=== PATIENT | female | born 1975 | race Caucasian/White ===

== ENCOUNTER → 2016-04-01 | Outpatient (CLI) | payer OTHER ==
[~2016-04-01] MED LIST: ALBU8.5H2 IH; ASPI-266 PO; ASPI-587 PO; AZIT500T PO; CEFD300C3 PO; CYAN100053 IJ; CYAN100T IM; CYCL10TA45 PO; CYCL10TA9 PO; FLUT16SP22; HYDR-2890 PO; HYDR-3816 PO; IBP200T; IBUP-1780 PO; JANUMET; MTF500T PO; MULT-608 PO; OXYC1CAP3 PO; PHENERGAN/CODEINE PO; PRD10T PO; PREN1TAB39 PO; SITA1TAB6
--- OUTSIDE RECORDS SUMMARY | 2016-04-01 07:53 | XMS REPORT | Continuity of Care Document ---
Author Author [facility] Organization [facility] Address Unknown Phone Unavailable Care Team Providers Care Choreography Director Name Role Phone Unverified, Unverified PCP Unavailable Source Comments Some departments are not documenting in the electronic medical record. If you do not see the information that you expected, contact Release of Information in the Health Information Management department at [phone] for further assistance in locating additional records.[facility] Active Allergies and Adverse Reactions Not on File Current Medications Not on file Active Problems Not on file Social History Tobacco Use Types Packs/Day Years Used Date Never Assessed Plan of Care Health Maintenance Due Date Last Done Comments Physical (Comprehensive) 08/23/1983 Exam Pertussis Vaccine 08/23/1987 Tetanus Vaccine 1993 Influenza Vaccine 11/23/2015 Results from Last 3 Months Not on file
--- NOTE | 2016-04-01 10:20 | Diagnostic Imaging Report ---
EXAMINATION: Left breast ultrasound. INDICATION: Left breast known nodule seen on recent screening mammogram. FINDINGS: In the left breast 2:00 o'clock zone 5 cm from the nipple there is a 1.3 x 0.5 x 1 cm oval-shaped lobulated hyperechoic mass with no internal vascularity. There is no shadowing. No clear through transmission however. No internal color Doppler is seen. The patient was notified of the recommendation personally by phone. IMPRESSION: 1.3 CM hypoechoic lesion that could be solid. Since this is a new lesion above a centimeter in size, an ultrasound-guided biopsy is recommended. BI-RADS 4A. ACR BI-RADS Category 4A: Low suspicion of malignancy. Report was faxed to office of Dr. Davis by karly at 10:22 am. Dictated by: Dictated on workstation # [id number]
== END ==
LOC: RAD 07:50
PROVIDERS: ATTEND Family Medicine
DX: N63 Unspecified lump in breast (principal)
CPT/HCPCS: 76642

== ENCOUNTER → 2016-04-08 | Outpatient (CLI) | payer OTHER ==
[~2016-04-08] VITALS: Ht 162.6 cm; Wt 95.7 kg
[~2016-04-08] MED LIST changes: +LIDOCAINE 1% INJ 20 ML (XYLOCAINE) VIAL INJ ONE; +LIDOCAINE 1% INJ 20 ML (XYLOCAINE) VIAL ONE
--- OUTSIDE RECORDS SUMMARY | 2016-04-08 09:11 | XMS REPORT | Continuity of Care Document ---
Author Author [facility] Organization [facility] Address Unknown Phone Unavailable Care Team Providers Care Gum Maker Name Role Phone Unverified, Unverified PCP Unavailable Source Comments Some departments are not documenting in the electronic medical record. If you do not see the information that you expected, contact Release of Information in the Health Information Management department at [phone] for further assistance in locating additional records.[facility] Active Allergies and Adverse Reactions Not on [...]
--- NOTE | 2016-04-08 10:43 | Diagnostic Imaging Report ---
EXAMINATION: Vacuum-assisted ultrasound-guided biopsy of breast mass left. A metallic clip placed to yomaira biopsy site. INDICATION: Left breast mass. CONSENT: Informed consent was obtained from the patient. The risks, benefits, potential complications and alternatives were reviewed and all questions answered to the patient's satisfaction. FINDINGS: Ultrasound images demonstrate left breast mass at the 2:00 zone, 5 cm from the nipple. PROCEDURE: After sterile preparation and draping, 1% lidocaine was utilized for local anesthesia. A vacuum-assisted biopsy device with 14-gauge needle was introduced under live ultrasound guidance into the lesion. Good needle position was documented with ultrasound images. A metallic clip was placed to yomaira the site of the biopsy. A subsequent mammogram is performed and confirms the proper positioning of the clip. Multiple samples were obtained and sent to pathology. The patient tolerated the procedure well with no immediate complications. IMPRESSION: Successful ultrasound-guided biopsy of 2:00 left breast mass. A metallic clip placed to yomaira biopsy site. Dictated by: Dictated on workstation # [id number]
--- NOTE | 2016-04-08 17:10 | Diagnostic Imaging Report ---
Exam: CC and lateral views of the left breast diagnostic mammogram INDICATION: Documentation of clip position and verification of matching ultrasound and mammographic abnormalities after ultrasound-guided biopsy. FINDINGS: Satisfactory clip position is seen along the medial aspect of the left breast mass confirming that the mammographic and ultrasound abnormalities are the same lesion. IMPRESSION: Satisfactory clip position. Pathology results are pending. Dictated by: Dictated on workstation # [id number]
== END ==
LOC: RAD 09:09
PROVIDERS: ATTEND Family Medicine
DX: D24.2 Benign neoplasm of left breast (principal)
CPT/HCPCS: 19083

== ENCOUNTER → 2016-06-06 | Outpatient (CLI) | payer OTHER ==
[~2016-06-06] MED LIST changes: -LIDOCAINE 1% INJ 20 ML (XYLOCAINE) VIAL INJ ONE; -LIDOCAINE 1% INJ 20 ML (XYLOCAINE) VIAL ONE
--- OUTSIDE RECORDS SUMMARY | 2016-06-06 09:27 | XMS REPORT | Continuity of Care Document ---
Author Author [facility] Organization [facility] Address Unknown Phone Unavailable Care Team Providers Care Field Hockey And Lacrosse Coach Name Role Phone Unverified, Unverified PCP Unavailable Source Comments Some departments are not documenting in the electronic medical record. If you do not see the information that you expected, contact Release of Information in the Health Information Management department at [phone] for further assistance in locating additional records.[facility] Active Allergies and Adverse Reactions Not [...]
== END ==
LOC: LAB 09:22
PROVIDERS: ATTEND Internal Medicine
DX: R73.03 Prediabetes (principal)
CPT/HCPCS: 36415; 83036

== ENCOUNTER → 2017-03-18 | Outpatient (CLI) | payer OTHER ==
--- NOTE | 2017-03-18 18:50 | Diagnostic Imaging Report ---
Bilateral screening mammogram 2D views with tomosynthesis The current study was also evaluated with a Computer Aided Detection (CAD) system. Indication: Screening. No current complaints stated on the questionnaire. COMPARISON: 04/08/2016. FINDINGS: The breasts are composed of heterogeneously dense parenchyma which may decrease mammographic sensitivity. Benign-appearing calcifications are seen. Previously seen circumscribed nodule in the outer aspect of the left breast is smaller in size compared to the prior study and is associated with circumscribed margins suggestive of benign etiology. A biopsy clip adjacent to its is seen. 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 Allowing for technique and positional differences, no suspicious change is seen. IMPRESSION: No significant change. ACR BI-RADS Category 2: Benign findings. Result letter will be mailed to the patient. Note: At least 10% of breast cancer is not imaged by mammography. Dictated by: Dictated on workstation # [id number]
== END ==
LOC: RAD 09:32
PROVIDERS: ATTEND Family Medicine
DX: Z12.31 Encounter for screening mammogram for malignant neoplasm of breast (principal)
CPT/HCPCS: 77067

== ENCOUNTER → 2017-06-25 | Outpatient (CLI) | payer OTHER ==
--- NOTE | 2017-06-25 12:43 | Diagnostic Imaging Report ---
EXAMINATION: Pelvic ultrasound. INDICATION: Right lower quadrant pain. FINDINGS: The previous pelvic ultrasound exam performed on 05/25/2014 suggested that the uterus had a slightly heterogeneous appearance and raised the question of adenomyosis. On this exam, the uterus is nongravid and not enlarged measuring 7.4 x 6.8 x 5.3 cm. The uterine myometrium seems fairly homogeneous. There is no clear evidence for adenomyosis. The endometrial lining is thickened measuring 10 mm (normal 5 mm or less). This finding is nonspecific. Correlation with the patient's menstrual cycle will be recommended. Neither ovary is identified; however, there is a 3.7 x 3.5 x 2.9 cm lobulated cystic mass in the left adnexa. I suspect that this is arising from the left ovary. This cystic mass has a generally benign appearance. There is no solid mass identified and there is no sign of any free fluid. IMPRESSION: 1. Neither ovary is identified, but the 3.7 x 2.5 x 2.9 cm lobulated cystic mass in the left adnexa is most likely arising from the left ovary. 2. There is no acute abnormality identified. 3. The uterine myometrium is fairly homogeneous. There is no evidence for adenomyosis. Dictated by: Dictated on workstation # [id number]
== END ==
LOC: RAD 10:39
PROVIDERS: ATTEND Internal Medicine
DX: N83.8 Other noninflammatory disorders of ovary, fallopian tube and broad ligament (principal)
CPT/HCPCS: 76830; 76856

== ENCOUNTER 2017-08-29 04:17 | Emergency (ER) | payer OTHER ==
[~2017-08-29] VITALS: Ht 162.6 cm; Wt 95.7 kg
[2017-08-29] MEDS ORDERED: LACTATED RINGERS 1,000 ML IV ONE ×2 (04:32→05:39)
[2017-08-29] MEDS ORDERED: KETOROLAC 30 MG/ML VIAL IVP STA (04:32)
[2017-08-29 04:41] LABS: BASOPHILS # (AUTO) 0.1 10^3/uL (0.0-0.1); BASOPHILS % (AUTO) 1 % (0-10); EOSINOPHILS # (AUTO) 0.4 10^3/uL (0.0-0.3); EOSINOPHILS % (AUTO) 3 % (0-10); HEMATOCRIT 38 % (35-52); HEMOGLOBIN 12.5 G/DL (11.5-16.0); LYMPHOCYTES # (AUTO) 3.1 X 10^3 (1.0-4.0); LYMPHOCYTES % (AUTO) 30 % (12-44); MEAN CORPUSCULAR HEMOGLOBIN 27 PG (25-34); MEAN CORPUSCULAR HGB CONC 33 G/DL (32-36); MEAN CORPUSCULAR VOLUME 81 FL (80-99); MEAN PLATELET VOLUME 10.3 FL (7.4-10.4); MONOCYTES # (AUTO) 0.7 X 10^3 (0.0-1.0); MONOCYTES % (AUTO) 7 % (0-12); NEUTROPHILS # (AUTO) 6.3 X 10^3 (1.8-7.8); NEUTROPHILS % (AUTO) 60 % (42-75); PLATELET COUNT 294 10^3/uL (130-400); RED BLOOD COUNT 4.62 10^6/uL (4.35-5.85); RED CELL DISTRIBUTION WIDTH 15.5 % (10.0-14.5); WHITE BLOOD COUNT 10.5 10^3/uL (4.3-11.0)
--- NOTE | 2017-08-29 04:42 | ED Abdominal Pain ---
General Chief Complaint: Abdominal/GI Problems Stated Complaint: POSS KIDNEY STONE Source of Information: Patient Exam Limitations: No Limitations History of Present Illness Date Seen by Provider: Aug 29, 2017 Time Seen by Provider: 04:30 Initial Comments PT ARRIVES VIA POV FROM HOME C/O SEVERE LEFT FLANK PAIN, WOKE HER UP 1 HOUR AGO C/O NAUSEA, NO VOMITING NO FEVER NO PROBLEMS URINATING, VOIDED AT ONSET OF PAIN, NO GROSS HEMATURIA. TAKES HYDROCODONE AND FLEXERIL DAILY FOR CHRONIC RIGHT ANKLE PAIN--LAST DOSE WAS AT 1800 LAST EVENING PT HAS HISTORY OF KIDNEY STONES, AND THIS IS THE SAME ONLY MUCH WORSE THAN NORMAL LAST STONE WAS APPROXIMATELY 2 MONTHS AGO HAS HAD URETERAL STENTS, BUT HAS NOT HAD TO HAVE ACTUAL SURGICAL REMOVAL OF STONES OR LITHOTRIPSY. LMP--2-3 WEEKS AGO, NORMAL. NO CONTROL-- HAS BEEN IN [place] PCP: DR. WELCH UROLOGIST: DR. YOUNG--IS OUT OF TOWN UNTIL 08/31/17 Allergies and Home Medications Allergies Coded Allergies: morphine (Unverified Allergy, Severe, VOMITING, 12/13/10) latex (Unverified Allergy, Mild, RASH, 12/13/10) ondansetron (Unverified Allergy, Mild, Rash at IV site, 02/25/06) iron (Verified Allergy, Unknown, 02/23/06) metoclopramide (Verified Allergy, Unknown, 02/23/06) Home Medications Albuterol 8.5 Gm Hfa.aer.ad, 2 PUFF IH Q4H PRN for SHORTNESS OF BREATH, ( Reported) Azithromycin 500 Mg Tablet, 500 MG PO DAILY FOR INFECTION Prescribed by: SARAI CASEY on 12/27/152138 Cefdinir 300 Mg Capsule, 300 MG PO BID Prescribed by: SARAI CASEY on 12/27/152138 Cyclobenzaprine Hcl 10 Mg Tablet, 10 MG PO Q12H PRN for MUSCLE SPASMS, (Reported ) Hydrocodone Bit/Acetaminophen 1 Tab Tablet, 2 TAB PO Q6H PRN for PAIN, (Reported ) Ibuprofen 800 Mg Tablet, 800 MG PO Q8H PRN for PAIN, (Reported) Ketorolac Tromethamine 10 Mg Tablet, 10 MG PO Q6H Prescribed by: SARAI CASEY on 08/29/17634 Nitrofurantoin Monohyd/M-Cryst 100 Mg Capsule, 100 MG PO BID Prescribed by: SARAI CASEY on 08/29/17634 Prednisone 10 Mg Tab, 40 MG PO DAILY Prescribed by: SARAI CASEY on 12/27/152139 Promethazine HCl 25 Mg Supp.rect, 25 MG RC Q4H Prescribed by: SARAI CASEY on 08/29/17634 Tamsulosin HCl 0.4 Mg Cap, 0.4 MG PO DAILY Prescribed by: SARAI CASEY on 08/29/17634 Tramadol HCl 50 Mg Tablet, 50 MG PO Q4H Prescribed by: SARAI CASEY on 08/29/17634 [Phenergan/Codeine] , 10 ML PO Q8H PRN for COUGH, (Reported) Patient Home Medication List Home Medication List Reviewed: Yes Review of Systems Constitutional: no symptoms reported Respiratory: No Symptoms Reported Cardiovascular: No Symptoms Reported Gastrointestinal: See HPI, Nausea; Denies Vomiting Genitourinary: See HPI, Flank Pain Musculoskeletal: see HPI, back pain Skin: no symptoms reported Psychiatric/Neurological: No Symptoms Reported Endocrine: No Symptoms Reported Hematologic/Lymphatic: No Symptoms Reported Past Optniex-Ttfgwi-Adkeor Hx Patient Social History Alcohol Use: Denies Use Recreational Drug Use: No Smoking Status: Never a Smoker Recent Foreign Travel: No Contact w/Someone Who Travel: No Recent Hopitalizations: No Immunizations Up To Date Date of Influenza Vaccine: Jan 02, 2012 Past Medical History Surgeries: Yes (LAP GABI; LAP APPY; LAP. OVARIAN CYST REMOVAL; URETERAL STENTS FOR STONES; EGD'S/COLONOSCOPIES--LAST ONE 11/2014; CARDIAC CATH 2014-- NO INTERVENTION/MILD DISEASE) Appendectomy, Gallbladder, Orthopedic, Renal Respiratory: Yes Asthma Cardiac: No (ABNORMAL STRESS TEST AND CARDIAC CATH 2014--NO INTERVENTION/MILD DISEASE) Neurological: No Reproductive Disorders: Yes Female Reproductive Disorders: Ovarian Cyst Sexually Transmitted Disease: No Genitourinary: Yes Kidney Stones Gastrointestinal: Yes (S/P GABI AND APPY) Esophagitis, Gall Bladder Disease Musculoskeletal: Yes (RIGHT ANKLE FX/ORIF; CHRONIC RIGHT ANKLE PAIN --ON DAILY HYDROCODONE AND FLEXERIL) Fractures Endocrine: Yes (HYPERGLYCEMIA IN PAST) Cancer: No Psychosocial: No Integumentary: No Blood Disorders: No Physical Exam Vital Signs Vital Signs - First Documented 6/8/18 04:20 Temp 96.7 Pulse 84 Resp 18 B/P (MAP) 154/95 (114) Pulse Ox 99 Capillary Refill : General Appearance: WD/WN, other (LOOKS UNCOMFORTABLE) Respiratory: normal breath sounds, no respiratory distress, no accessory muscle use Cardiovascular: regular rate, rhythm, no murmur Gastrointestinal: normal bowel sounds, soft, no organomegaly; No distended, No guarding, No rebound; tenderness (LEFT FLANK) Extremities: normal inspection, normal capillary refill Back: CVA tenderness (L) Neurologic/Psychiatric: grease monkey II-XII nml as tested, no motor/sensory deficits, alert, oriented x 3 Skin: normal color, warm/dry Progress/Results/Core Measures Results/Orders Lab Results Laboratory Tests Test 08/29/17 04:25 08/29/17 06:35 Range/Units White Blood Count 10.5 4.3-11.0 10^3/uL Red Blood Count 4.62 4.35-5.85 10^6/uL Hemoglobin 12.5 11.5-16.0 G/DL Hematocrit 38 35-52 % Mean Corpuscular Volume 81 80-99 FL Mean Corpuscular Hemoglobin 27 25-34 PG Mean Corpuscular Hemoglobin Concent 33 32-36 G/DL Red Cell Distribution Width 15.5 H 10.0-14.5 % Platelet Count 294 130-400 10^3/uL Mean Platelet Volume 10.3 7.4-10.4 FL Neutrophils (%) (Auto) 60 42-75 % Lymphocytes (%) (Auto) 30 12-44 % Monocytes (%) (Auto) 7 0-12 % Eosinophils (%) (Auto) 3 0-10 % Basophils (%) (Auto) 1 0-10 % Neutrophils # (Auto) 6.3 1.8-7.8 X 10^3 Lymphocytes # (Auto) 3.1 1.0-4.0 X 10^3 Monocytes # (Auto) 0.7 0.0-1.0 X 10^3 Eosinophils # (Auto) 0.4 H 0.0-0.3 10^3/uL Basophils # (Auto) 0.1 0.0-0.1 10^3/uL Sodium Level 139 135-145 MMOL/L Potassium Level 4.5 3.6-5.0 MMOL/L Chloride Level 106 98-107 MMOL/L Carbon Dioxide Level 20 L 21-32 MMOL/L Anion Gap 13 5-14 MMOL/L Blood Urea Nitrogen 15 7-18 MG/DL Creatinine 0.84 0.60-1.30 MG/DL Estimat Glomerular Filtration Rate > 60 BUN/Creatinine Ratio 18 Glucose Level 106 H 70-105 MG/DL Calcium Level 9.4 8.5-10.1 MG/DL Total Bilirubin 0.3 0.1-1.0 MG/DL Aspartate Amino Transf (AST/SGOT) 15 5-34 U/L Alanine Aminotransferase (ALT/SGPT) 20 0-55 U/L Alkaline Phosphatase 69 40-136 U/L Total Protein 7.4 6.4-8.2 GM/DL Albumin 4.2 3.2-4.5 GM/DL Amylase Level 43 25-125 U/L Lipase 21 8-78 U/L Serum Test, Qualitative NEGATIVE NEGATIVE Urine Color YELLOW Urine Clarity CLEAR Urine pH 6 5-9 Urine Specific [place] 1.015 L 1.016-1.022 Urine Protein 1+ H NEGATIVE Urine Glucose (UA) NEGATIVE NEGATIVE Urine Ketones NEGATIVE NEGATIVE Urine Nitrite NEGATIVE NEGATIVE Urine Bilirubin NEGATIVE NEGATIVE Urine Urobilinogen NORMAL NORMAL MG/DL Urine Leukocyte Esterase NEGATIVE NEGATIVE Urine RBC (Auto) 5+ H NEGATIVE Urine RBC 5-10 H /HPF Urine WBC 0-2 /HPF Urine Squamous Epithelial Cells 2-5 /HPF Urine Crystals NONE /LPF Urine Bacteria TRACE /HPF Urine Casts NONE /LPF Urine Mucus NEGATIVE /LPF Urine Culture Indicated NO My Orders Orders - SARAI CASEY DO Ct Abd/Pelvis Wo(Kidney Stone) (08/29/17 04:32) Amylase (08/29/17 04:32) Cbc With Automated Diff (08/29/17 04:32) Comprehensive Metabolic Panel (08/29/17 04:32) Lipase (08/29/17 04:32) Ua Culture If Indicated (08/29/17 04:32) Acute Abd Series (08/29/17 04:32) Saline Lock/Iv-Start (08/29/17 04:32) Ketorolac Injection (Toradol Injection) (08/29/17 04:32) Saline Lock/Iv-Start (08/29/17 04:32) Lactated Ringers (Lr 1000 Ml Iv Solution (08/29/17 04:32) Hcg,Qualitative Serum (08/29/17 04:32) Promethazine Injection (Phenergan Injec (08/29/17 04:45) Fentanyl Injection (Sublimaze Injection (08/29/17 05:39) Alfuzosin (Not Stocked) (Uroxatral (Not (08/29/17 05:45) Promethazine Injection (Phenergan Injec (08/29/17 05:45) Saline Lock/Iv-Start (08/29/17 05:39) Lactated Ringers (Lr 1000 Ml Iv Solution (08/29/17 05:39) Fentanyl Injection (Sublimaze Injection (08/29/17 05:53) Fentanyl Injection (Sublimaze Injection (08/29/17 06:27) Medications Given in ED Vital Signs/I&O 08/29/17 08/29/17 04:20 07:05 Temp 96.7 Pulse 84 87 Resp 18 B/P (MAP) 154/95 (114) 138/89 Pulse Ox 99 100 Progress Progress Note : Progress Note NO SIGNIFICANT RELIEF WITH TORADOL MODERATE RELIEF WITH FENTANYL PT WOULD LIKE TO GO HOME AND TRY ORAL PAIN MEDICATIONS, AND FOLLOW UP WITH DR. YOUNG ON FRIDAY PT ADVISED TO RETURN TO ER IF PAIN IS UNCONTROLLED WITH ORAL MEDICATIONS Diagnostic Imaging Comments ABD XRAYS--NO ACUTE PROCESS, PENDING RADIOLOGIST REVIEW CT ABDOMEN/PELVIS--5 MM PROXIMAL LEFT URETERAL STONE WITH MILD HYDRONEPHROSIS/ HYDROURETER. PER STAT RAD VIA FAX @ 0011 Departure Impression Primary Impression: Left ureteral calculus Disposition: HOME, SELF-CARE Condition: Improved Departure-Patient Inst. Referrals: LEANDRO WELCH MD (PCP/Family) Primary Care Physician Patient Instructions: Kidney Stones (DC) Add. Discharge Instructions: LOTS OF CLEAR LIQUIDS STRAIN ALL URINE--RETURN ANY STONES TO DR. YOUNG'S OFFICE TAKE YOUR HYDROCODONE 1-2 PILLS EVERY 4 HOURS NEEDED FOR PAIN YOU MAY TAKE YOUR FLEXERIL 3 TIMES A DAY NEEDED FOR PAIN AND SPASMS FOLLOW UP WITH DR YOUNG ON FRIDAY, RETURN TO ER IF PAIN WORSENS All discharge instructions reviewed with patient and/or family. Voiced understanding. Scripts Tramadol HCl (Ultram) 50 Mg Tablet 50 MG PO Q4H, #20 TAB Prov: SARAI CASEY DO 6/8/18 Promethazine HCl (Phenergan) 25 Mg Supp.rect 25 MG RC Q4H for Nausea/Vomiting, #10 SUPP.RECT Prov: SARAI CASEY DO 08/29/17 Nitrofurantoin Monohyd/M-Cryst (Macrobid 100 mg Capsule) 100 Mg Capsule 100 MG PO BID, #20 CAP Prov: SARAI CASEY DO 08/29/17 Ketorolac Tromethamine (Ketorolac Tromethamine) 10 Mg Tablet 10 MG PO Q6H for Pain, #15 TAB Prov: SARAI CASEY DO 08/29/17 Tamsulosin HCl (Flomax) 0.4 Mg Cap 0.4 MG PO DAILY, #10 CAP Prov: SARAI CASEY DO 08/29/17 SARAI CASEY DO Aug 29, 2017 04:42
[2017-08-29] MEDS ORDERED: PROMETHAZINE INJ 25 MG/ML (PHENERGAN) AMP IVP ONE ×2 (04:45→05:45)
[2017-08-29 04:57] LABS: ALANINE AMINOTRANSFERASE 20 U/L (0-55); ALBUMIN 4.2 GM/DL (3.2-4.5); ALKALINE PHOSPHATASE 69 U/L (40-136); AMYLASE 43 U/L (25-125); BILIRUBIN,TOTAL 0.3 MG/DL (0.1-1.0); BUN/CREATININE RATIO 18; CALCIUM 9.4 MG/DL (8.5-10.1); CARBON DIOXIDE 20 MMOL/L (21-32); CHLORIDE 106 MMOL/L (98-107); CREATININE SERUM 0.84 MG/DL (0.60-1.30); GFR ESTIMATED > 60; GLUCOSE 106 MG/DL (70-105); LIPASE 21 U/L (8-78); POTASSIUM 4.5 MMOL/L (3.6-5.0); SODIUM 139 MMOL/L (135-145); TOTAL PROTEIN 7.4 GM/DL (6.4-8.2)
[2017-08-29] MEDS ORDERED: fentaNYL INJECTION 100 MCG/2 ML AMP IVP STA ×3 (05:39→06:27)
[2017-08-29] MEDS ORDERED: ALFUZOSIN HCL 10 MG TAB (UROXATRAL) PO SCH (05:45)
[2017-08-29] MEDS ORDERED: TAMS0.4C98 PO (06:35)
[2017-08-29] MEDS ORDERED: KETO10TA PO (06:35)
[2017-08-29] MEDS ORDERED: PROM25SU43 RC (06:35)
[2017-08-29] MEDS ORDERED: TRAM-42 PO (06:35)
[2017-08-29] MEDS ORDERED: NITR-65 PO (06:35)
[2017-08-29 06:44] LABS: BILIRUBIN,URINE NEGATIVE (NEGATIVE); CLARITY,URINE CLEAR; COLOR,URINE YELLOW; GLUCOSE, URINE (UA) NEGATIVE (NEGATIVE); KETONES,URINE NEGATIVE (NEGATIVE); LEUKOCYTE ESTERASE ,URINE NEGATIVE (NEGATIVE); NITRITE,URINE NEGATIVE (NEGATIVE); PH,URINE 6 (5-9); PROTEIN,URINE 1+ (NEGATIVE); UROBILINOGEN,URINE NORMAL (NORMAL)
[2017-08-29 06:49] LABS: BACTERIA,URINE TRACE /HPF; WBC,URINE 0-2 /HPF
[2017-08-29 07:05] VITALS: BP 138/89
--- NOTE | 2017-08-29 08:21 | Diagnostic Imaging Report ---
PROCEDURE: CT urinary tract, rule out kidney stone. TECHNIQUE: Multiple contiguous axial images were obtained through the abdomen and pelvis without the use of intravenous contrast. INDICATION: Left-sided abdominal pain. History of kidney stones. COMPARISON: None. FINDINGS: A 0.5 cm renal stone in the proximal left ureter just distal to the ureteropelvic junction. This results in mild ureteral pyelocaliectasis. No other renal stones. Lung bases are clear. Cholecystectomy. Appendectomy. The liver, pancreas, spleen, adrenals, right kidney, right ureter, unopacified bladder are negative on this noncontrast exam. Simple appearing cysts in both ovaries measuring up to 2.8 cm on the right and 2.9 cm on the left. The reproductive structures are otherwise grossly unremarkable. No free intraperitoneal air or fluid. No lymphadenopathy. No evidence of bowel obstruction. No acute osseous findings. IMPRESSION: 0.5 cm renal stone in the proximal left ureter, just distal to the left ureteropelvic junction. This results in only mild hydronephrosis. Dictated by: Dictated on workstation # [id number]
--- NOTE | 2017-08-29 08:30 | Diagnostic Imaging Report ---
Indication: Abdominal pain. Abdominal series performed with frontal chest radiograph and supine upper abdominal films Frontal chest view shows heart normal size. The lungs are clear. There is no pneumothorax or pleural fluid. There is no free intraperitoneal air. The abdominal bowel gas pattern was unremarkable. There is mild stool throughout the colon. There is evidence of previous cholecystectomy. There are no suspicious calcifications. There are phleboliths in the pelvis. Impression: Unremarkable abdominal series. No acute pulmonary infiltrate. No free air or bowel obstruction. Dictated by: Dictated on workstation # [id number]
== END 2017-08-29 07:06 | disposition home or self-care (01) ==
LOC: EDUNIT# 04:17 → ER 04:19
DX: N20.1 Calculus of ureter (principal); J45.909 Unspecified asthma, uncomplicated; Z87.448 Personal history of other diseases of urinary system; Z87.19 Personal history of other diseases of the digestive system; Z88.5 Allergy status to narcotic agent; Z88.8 Allergy status to other drugs, medicaments and biological substances; Z79.52 Long term (current) use of systemic steroids; Z90.49 Acquired absence of other specified parts of digestive tract; Z87.442 Personal history of urinary calculi; Z90.89 Acquired absence of other organs
CPT/HCPCS: 36415; 74022; 74176; 80053; 81000; 82150; 83690; 84703; 85025; 96361; 96374; 96375; 96376

== ENCOUNTER → 2017-09-01 | Outpatient (CLI) | payer OTHER ==
[~2017-09-01] MED LIST changes: +KETO10TA PO; +NITR-65 PO; +PROM25SU43 RC; +TAMS0.4C98 PO; +TRAM-42 PO
--- NOTE | 2017-09-01 14:25 | Diagnostic Imaging Report ---
INDICATION: Left ureteral calculus. EXAMINATION: KUB at 2:05 PM. FINDINGS: There is a 3 mm calcification projecting between the spinous processes of L2 and L3 on the left. No other calculi are seen. IMPRESSION: 3 mm left ureteral calculus. Dictated by: Dictated on workstation # [id number]
== END ==
LOC: RAD 13:33
PROVIDERS: ATTEND Urology
DX: N20.1 Calculus of ureter (principal)
CPT/HCPCS: 74018

== ENCOUNTER 2017-10-05 17:40 | Inpatient (IN) | payer OTHER ==
[~2017-10-05] VITALS: Ht 162.6 cm; Wt 100.7 kg
[2017-10-05] MEDS ORDERED: NS IV 1000 ML 1,000 ML IV ONE (18:21)
[2017-10-05] MEDS ORDERED: fentaNYL INJECTION 100 MCG/2 ML AMP IVP STA ×3 (18:21→19:49)
[2017-10-05 18:43] LABS: BILIRUBIN,URINE NEGATIVE (NEGATIVE); CLARITY,URINE SLIGHTLY CLOUDY; COLOR,URINE YELLOW; GLUCOSE, URINE (UA) NEGATIVE (NEGATIVE); KETONES,URINE NEGATIVE (NEGATIVE); LEUKOCYTE ESTERASE ,URINE NEGATIVE (NEGATIVE); NITRITE,URINE NEGATIVE (NEGATIVE); PH,URINE 5 (5-9); PROTEIN,URINE 1+ (NEGATIVE); UROBILINOGEN,URINE NORMAL (NORMAL)
[2017-10-05] MEDS ORDERED: ONDANSETRON 4 MG/2 ML (SDV) Z0FRAN IVP ONE (18:45)
[2017-10-05 18:55] LABS: BASOPHILS % (AUTO) 0 % (0-10); EOSINOPHILS # (AUTO) 0.3 10^3/uL (0.0-0.3); EOSINOPHILS % (AUTO) 2 % (0-10); HEMATOCRIT 35 % (35-52); HEMOGLOBIN 11.5 G/DL (11.5-16.0); LYMPHOCYTES # (AUTO) 2.6 X 10^3 (1.0-4.0); LYMPHOCYTES % (AUTO) 21 % (12-44); MEAN CORPUSCULAR HEMOGLOBIN 27 PG (25-34); MEAN CORPUSCULAR HGB CONC 33 G/DL (32-36); MEAN CORPUSCULAR VOLUME 81 FL (80-99); MEAN PLATELET VOLUME 10.5 FL (7.4-10.4); MONOCYTES # (AUTO) 0.9 X 10^3 (0.0-1.0); MONOCYTES % (AUTO) 7 % (0-12); NEUTROPHILS # (AUTO) 8.5 X 10^3 (1.8-7.8); NEUTROPHILS % (AUTO) 69 % (42-75); PLATELET COUNT 271 10^3/uL (130-400); RED BLOOD COUNT 4.32 10^6/uL (4.35-5.85); RED CELL DISTRIBUTION WIDTH 15.6 % (10.0-14.5); WHITE BLOOD COUNT 12.4 10^3/uL (4.3-11.0)
[2017-10-05 18:56] LABS: BACTERIA,URINE NEGATIVE /HPF; RBC,URINE RARE /HPF; YEAST,URINE MODERATE /HPF
[2017-10-05 19:12] LABS: BUN/CREATININE RATIO 17; CALCIUM 8.6 MG/DL (8.5-10.1); CARBON DIOXIDE 17 MMOL/L (21-32); CHLORIDE 109 MMOL/L (98-107); CREATININE SERUM 0.99 MG/DL (0.60-1.30); GFR ESTIMATED > 60; GLUCOSE 88 MG/DL (70-105); SODIUM 136 MMOL/L (135-145)
[2017-10-05] MEDS ORDERED: PROMETHAZINE INJ 25 MG/ML (PHENERGAN) AMP ONE (19:13)
--- NOTE | 2017-10-05 19:39 | ED GU-Female ---
General Chief Complaint: Abdominal/GI Problems Stated Complaint: KIDNEY STONE Source: patient Exam Limitations: no limitations History of Present Illness Date Seen by Provider: Oct 05, 2017 Time Seen by Provider: 18:15 Initial Comments Here with complaint of left flank pain and decreased urination today. Has history of kidney stone that they were not sure if passed. States that it must be moving because she has fairly significant pain now. Also associated with nausea. She's been trying to drink fluids but has not had increase in urination. Denies fevers. She did take a hydrocodone and Toradol and that hasn 't really helped much although she feels like it may be starting to work a little bit. Timing/Duration: getting worse, other (intermittent over the last 6 weeks) Severity/Quality: moderate, severe Location: left flank Activities at Onset: none Modifying Factors: Improves With Analgesics, Improves With Other Associated Symptoms: No abdominal pain, No fever/chills; lower back pain, nausea/vomiting; No urinary frequency Allergies and Home Medications Allergies Coded Allergies: morphine (Unverified Allergy, Severe, VOMITING, 12/13/10) latex (Unverified Allergy, Mild, RASH, 12/13/10) ondansetron (Unverified Allergy, Mild, Rash at IV site, 02/25/06) iron (Verified Allergy, Unknown, 02/23/06) metoclopramide (Verified Allergy, Unknown, 02/23/06) Home Medications Albuterol 8.5 Gm Hfa.aer.ad, 2 PUFF IH Q4H PRN for SHORTNESS OF BREATH, ( Reported) Azithromycin 500 Mg Tablet, 500 MG PO DAILY FOR INFECTION Prescribed by: SARAI CASEY on 12/27/152138 Cefdinir 300 Mg Capsule, 300 MG PO BID Prescribed by: SARAI CASEY on 12/27/152138 Cyclobenzaprine Hcl 10 Mg Tablet, 10 MG PO Q12H PRN for MUSCLE SPASMS, (Reported ) Hydrocodone Bit/Acetaminophen 1 Tab Tablet, 2 TAB PO Q6H PRN for PAIN, (Reported ) Ibuprofen 800 Mg Tablet, 800 MG PO Q8H PRN for PAIN, (Reported) Ketorolac Tromethamine 10 Mg Tablet, 10 MG PO Q6H Prescribed by: SARAI CASEY on 08/29/17634 Nitrofurantoin Monohyd/M-Cryst 100 Mg Capsule, 100 MG PO BID Prescribed by: SARAI CASEY on 08/29/17634 Prednisone 10 Mg Tab, 40 MG PO DAILY Prescribed by: SARAI CASEY on 12/27/152139 Promethazine HCl 25 Mg Supp.rect, 25 MG RC Q4H Prescribed by: SARAI CASEY on 08/29/17634 Tamsulosin HCl 0.4 Mg Cap, 0.4 MG PO DAILY Prescribed by: SARAI CASEY on 08/29/17634 Tramadol HCl 50 Mg Tablet, 50 MG PO Q4H Prescribed by: SARAI CASEY on 08/29/17634 [Phenergan/Codeine] , 10 ML PO Q8H PRN for COUGH, (Reported) Patient Home Medication List Home Medication List Reviewed: Yes Review of Systems Constitutional: see HPI; No chills, No fever EENTM: no symptoms reported Respiratory: no symptoms reported Cardiovascular: no symptoms reported Gastrointestinal: No abdominal pain; nausea Genitourinary: see HPI Musculoskeletal: see HPI Skin: no symptoms reported Psychiatric/Neurological: No Symptoms Reported All Other Systemes Reviewed Negative Unless Noted: Yes Past Gceyjve-Psrmnh-Srusku Hx Past Med/Social Hx: Reviewed Nursing Past Med/Soc Hx Patient Social History Alcohol Use: Denies Use Recreational Drug Use: No Smoking Status: Never a Smoker Recent Foreign Travel: No Contact w/Someone Who Travel: No Recent Hopitalizations: No Immunizations Up To Date Date of Influenza Vaccine: Jan 02, 2012 Past Medical History Surgeries: Yes Appendectomy, Gallbladder, Orthopedic, Renal Respiratory: Yes Asthma Cardiac: No (ABNORMAL STRESS TEST AND CARDIAC CATH 2014--NO INTERVENTION/MILD DISEASE) Neurological: No Reproductive Disorders: Yes Female Reproductive Disorders: Ovarian Cyst Sexually Transmitted Disease: No Genitourinary: Yes Kidney Stones Gastrointestinal: Yes (S/P GABI AND APPY) Esophagitis, Gall Bladder Disease Musculoskeletal: Yes Fractures Endocrine: Yes (HYPERGLYCEMIA IN PAST) Cancer: No Psychosocial: No Integumentary: No Blood Disorders: No Family Medical History Reviewed Nursing Family Hx Physical Exam Vital Signs Vital Signs - First Documented 10/05/17 18:10 Temp 97.8 Pulse 84 Resp 20 B/P (MAP) 180/102 (128) O2 Delivery Room Air Capillary Refill : Height, Weight, BMI Height: 5'4.00" Weight: 211lbs. 0.0oz. 95.580457pm; 36.2 BMI Method:Stated General Appearance: WD/WN, moderate distress HEENT: PERRL/EOMI Neck: full range of motion Cardiovascular: regular rate, rhythm, no murmur Respiratory: lungs clear, normal breath sounds Gastrointestinal: non tender, soft Back: normal inspection, no vertebral tenderness; No CVA tenderness (R); CVA tenderness (L) Extremities: non-tender, normal inspection Neurologic/Psychiatric: alert, oriented x 3 Skin: normal color, warm/dry Progress/Results/Core Measures Suspected Sepsis SIRS Temperature: Pulse: Respiratory Rate: Laboratory Tests 10/05/17 18:47: White Blood Count 12.4H Blood Pressure / Mean: Laboratory Tests 10/05/17 18:47: Creatinine 0.99, Platelet Count 271 Results/Orders Lab Results Laboratory Tests Test 10/05/17 18:34 10/05/17 18:47 Range/Units Urine Color YELLOW Urine Clarity SLIGHTLY CLOUDY Urine pH 5 5-9 Urine Specific [place] 1.025 H 1.016-1.022 Urine Protein 1+ H NEGATIVE Urine Glucose (UA) NEGATIVE NEGATIVE Urine Ketones NEGATIVE NEGATIVE Urine Nitrite NEGATIVE NEGATIVE Urine Bilirubin NEGATIVE NEGATIVE Urine Urobilinogen NORMAL NORMAL MG/DL Urine Leukocyte Esterase NEGATIVE NEGATIVE Urine RBC (Auto) 5+ H NEGATIVE Urine RBC RARE /HPF Urine WBC NONE /HPF Urine Squamous Epithelial Cells 5-10 /HPF Urine Crystals NONE /LPF Urine Bacteria NEGATIVE /HPF Urine Casts NONE /LPF Urine Mucus NEGATIVE /LPF Urine Yeast MODERATE H /HPF Urine Culture Indicated YES White Blood Count 12.4 H 4.3-11.0 10^3/uL Red Blood Count 4.32 L 4.35-5.85 10^6/uL Hemoglobin 11.5 11.5-16.0 G/DL Hematocrit 35 35-52 % Mean Corpuscular Volume 81 80-99 FL Mean Corpuscular Hemoglobin 27 25-34 PG Mean Corpuscular Hemoglobin Concent 33 32-36 G/DL Red Cell Distribution Width 15.6 H 10.0-14.5 % Platelet Count 271 130-400 10^3/uL Mean Platelet Volume 10.5 H 7.4-10.4 FL Neutrophils (%) (Auto) 69 42-75 % Lymphocytes (%) (Auto) 21 12-44 % Monocytes (%) (Auto) 7 0-12 % Eosinophils (%) (Auto) 2 0-10 % Basophils (%) (Auto) 0 0-10 % Neutrophils # (Auto) 8.5 H 1.8-7.8 X 10^3 Lymphocytes # (Auto) 2.6 1.0-4.0 X 10^3 Monocytes # (Auto) 0.9 0.0-1.0 X 10^3 Eosinophils # (Auto) 0.3 0.0-0.3 10^3/uL Basophils # (Auto) 0.0 0.0-0.1 10^3/uL Sodium Level 136 135-145 MMOL/L Potassium Level 4.0 3.6-5.0 MMOL/L Chloride Level 109 H 98-107 MMOL/L Carbon Dioxide Level 17 L 21-32 MMOL/L Anion Gap 10 5-14 MMOL/L Blood Urea Nitrogen 17 7-18 MG/DL Creatinine 0.99 0.60-1.30 MG/DL Estimat Glomerular Filtration Rate > 60 BUN/Creatinine Ratio 17 Glucose Level 88 70-105 MG/DL Calcium Level 8.6 8.5-10.1 MG/DL My Orders Orders - TYLER LIZARRAGA MD Basic Metabolic Panel (10/05/17 18:21) Cbc With Automated Diff (10/05/17 18:21) Ua Culture If Indicated (10/05/17 18:21) Saline Lock/Iv-Start (10/05/17 18:21) Ns Iv 1000 Ml (Sodium Chloride 0.9%) (10/05/17 18:21) Fentanyl Injection (Sublimaze Injection (10/05/17 18:21) Ct Abd/Pelvis Wo(Kidney Stone) (10/05/17 18:21) Ondansetron Injection (Zofran Injectio (10/05/17 18:45) Urine Culture (10/05/17 18:34) Promethazine Injection (Phenergan Injec (10/05/17 19:13) Fentanyl Injection (Sublimaze Injection (10/05/17 19:32) Fentanyl Injection (Sublimaze Injection (10/05/17 19:49) Abdomen/Kub 1view (10/05/17 20:21) Hydromorphone Injection (Dilaudid Inje (10/05/17 20:21) Ceftriaxone Injection (Rocephin Injectio (10/05/17 20:30) Medications Given in ED Current Medications Medications Dose Ordered Sig/Abiloa Route Start Time Stop Time Status Last Admin Dose Admin Sodium Chloride 1,000 ml @ 0 mls/hr Q0M ONCE IV 10/05/17 18:21 10/05/17 18:23 DC 10/05/17 18:30 1,000 MLS/HR Vital Signs/I&O 10/05/17 18:10 Temp 97.8 Pulse 84 Resp 20 B/P (MAP) 180/102 (128) O2 Delivery Room Air Capillary Refill : Progress Note : Progress Note Seen and evaluated. IV, labs, UA, normal saline 1 L bolus, Zofran 8 mg IV, Phenergan [address] pelvis kidney stone protocol ordered. Monitor patient. Repeat fentanyl 50 g IV for persistent pain. Monitor patient. Repeat fentanyl 75 g IV for pain. I did discuss the case with Dr. Varma at 2007 as patient has stone noted at the ureteral vesicular junction with intractable pain. He will see the patient in consult. I discussed the case with Dr. Welch at 2012. He accepts patient for admission as her primary doctor. We will continue pain control. I will get a KUB and initiate Rocephin IV. Dilaudid 1 mg IV for continued pain. We will hold further ondansetron as patient apparently has a remote history of some sort of reaction that she does not remember but she did have some itching after this was given tonight. No further sequela noted and she is not having any allergic reaction response currently. We will go ahead and stick to Phenergan with her though. Diagnostic Imaging Diagonstic Imaging: CT Plain Films/CT/US/NM/MRI: abdomen, pelvis Departure Communication (Admissions) Time/Spoke to Admitting Phy: 20:13 Time/Spoke to Consulting Phy: 20:08 Impression Primary Impression: Kidney stone on left side Additional Impression: Hydronephrosis, left Disposition: ADMITTED INPATIENT Condition: Improved Admissions Decision to Admit Reason: Admit from ER (General) Decision to Admit/Date: Oct 05, 2017 Time/Decision to Admit Time: 20:08 Departure-Patient Inst. Referrals: LEANDRO WELCH MD (PCP/Family) Primary Care Physician TYLER LIZARRAGA MD Oct 05, 2017 19:39
[2017-10-05] MEDS ORDERED: HYDROmorphone 1 MG/ML (DILAUDID) 1 ML SYRINGE IV STA (20:21)
[2017-10-05] MEDS ORDERED: cefTRIAXone INJECTION 1,000 MG in NS (IVPB) 50 ML IV ONE (20:30)
--- NOTE | 2017-10-05 20:39 | Diagnostic Imaging Report ---
Clinical indication: Patient with left-sided pain with hematuria and history of kidney stones. Exam: CT exam of the abdomen and pelvis is performed without IV or oral contrast using stone protocol. Comparisons: CT scan of the abdomen and pelvis without contrast dated 08/29/2017. Findings: Visualized lung bases: Unremarkable. Liver: Unremarkable as visualized. Gallbladder: The gallbladder is surgically resected. Pancreas: Unremarkable as visualized. Spleen: Unremarkable as visualized. Adrenal glands: Unremarkable. Kidneys/ ureters: There is interval development of 5 mm stone seen lodged within the distal left ureter/left UVJ region. There is mild left hydroureteronephrosis with minimal periureteral fat stranding. There are no other urinary tract stones seen. Otherwise both kidneys are unremarkable. The previously seen stone in the proximal left ureter is not seen and this stone may represent the stone noted proximally. Aorta: Unremarkable as visualized. Intraabdominal/ retroperitoneal contents: Unremarkable. Intestines: Unremarkable as visualized. Appendix: Surgically resected. Bladder: Unremarkable as visualized. Pelvic organs: Roughly stable 2.9 cm left adnexal cystic structure noted. Extra abdominal/ pelvis regions: Unremarkable. Abdominal wall: Unremarkable. Bones: Again seen chronic bilateral L5 spondylolysis is seen with no significant anterolisthesis. There are degenerative spurs involving the lumbar spine. Impression: 1: Interval migration of the previously seen 5 mm stone in the proximal left ureter which is now seen in the distal left ureter/UVJ region with mild left hydroureteronephrosis and mild adjacent fat stranding. 2: Stable 2.9 cm left adnexal cyst. Dictated by: Dictated on workstation # [id number]
--- NOTE | 2017-10-05 20:57 | Diagnostic Imaging Report ---
Clinical indication: Patient complains of left-sided pain and states she had a stone for the past six weeks and believes it is moving again. Exam: KUB x-ray. Comparison: CT scan of the abdomen and pelvis performed without contrast dated 10/05/2017 and 08/24/2017. KUB x-ray dated 09/15/2017. Findings and impression: 1: There is a calcification overlying the low left pelvis region which was not seen on the prior x-ray which likely represents the distal left ureter/UVJ stone seen on the CT scan dated 10/05/2017. This may represent the migrated stone which is seen in the proximal left ureter on the comparison CT dated 08/24/2017. 2: Nonobstructive bowel gas pattern is seen. Dictated by: Dictated on workstation # [id number]
[2017-10-05 21:30] VITALS: BP 122/61
[2017-10-05] MEDS: NS IV 1000 ML 1,000 ML IV SCH (22:00)
[2017-10-05] MEDS: HYDROmorphone 1 MG/ML (DILAUDID) 1 ML SYRINGE IV PRN (23:24)
[2017-10-06 00:58] VITALS: BP 116/61
[2017-10-06] MEDS ORDERED: KETOROLAC 15 MG/ML VIAL IVP PRN (01:00)
[2017-10-06] MEDS: HYDROmorphone 1 MG/ML (DILAUDID) 1 ML SYRINGE IV PRN ×2 (03:32→06:21)
[2017-10-06 04:33] VITALS: BP 120/59
[2017-10-06 06:00] LABS: BASOPHILS % (AUTO) 0 % (0-10); EOSINOPHILS # (AUTO) 0.3 10^3/uL (0.0-0.3); EOSINOPHILS % (AUTO) 3 % (0-10); HEMATOCRIT 34 % (35-52); HEMOGLOBIN 11.1 G/DL (11.5-16.0); LYMPHOCYTES # (AUTO) 2.6 X 10^3 (1.0-4.0); LYMPHOCYTES % (AUTO) 28 % (12-44); MEAN CORPUSCULAR HEMOGLOBIN 27 PG (25-34); MEAN CORPUSCULAR HGB CONC 33 G/DL (32-36); MEAN CORPUSCULAR VOLUME 81 FL (80-99); MEAN PLATELET VOLUME 10.2 FL (7.4-10.4); MONOCYTES # (AUTO) 0.6 X 10^3 (0.0-1.0); MONOCYTES % (AUTO) 7 % (0-12); NEUTROPHILS # (AUTO) 5.6 X 10^3 (1.8-7.8); NEUTROPHILS % (AUTO) 61 % (42-75); PLATELET COUNT 233 10^3/uL (130-400); RED BLOOD COUNT 4.16 10^6/uL (4.35-5.85); RED CELL DISTRIBUTION WIDTH 15.2 % (10.0-14.5); WHITE BLOOD COUNT 9.2 10^3/uL (4.3-11.0)
[2017-10-06] MEDS: NS IV 1000 ML 1,000 ML IV SCH ×3 (06:21→22:25)
[2017-10-06 06:24] LABS: BUN/CREATININE RATIO 17; CALCIUM 8.3 MG/DL (8.5-10.1); CARBON DIOXIDE 20 MMOL/L (21-32); CHLORIDE 110 MMOL/L (98-107); CREATININE SERUM 0.83 MG/DL (0.60-1.30); GFR ESTIMATED > 60; GLUCOSE 95 MG/DL (70-105); POTASSIUM 3.8 MMOL/L (3.6-5.0); SODIUM 137 MMOL/L (135-145)
--- NOTE | 2017-10-06 07:12 | History & Physicial ---
History of Present Illness History of Present Illness Reason for visit/HPI 42-year-old female presents to [facility] emergency department during the evening of October 05, 2017 with left-sided flank pain. She does have a history of urolithiasis and at this point she is unsure whether the stone has passed. She is also noted decreased urine output during the day of October 05. She is with significant pain and associated nausea. There is been no reports of any fever. For pain medication she does have available hydrocodone and tramadol which apparently has not been helping that much. Date of Admission Oct 05, 2017 at 18:25 Date Seen by Provider: Oct 06, 2017 Time Seen by Provider: 07:40 I consulted on this patient on 10/06/17 07:06 Attending Physician Yuriy Welch MD Admitting Physician Yuriy Welch MD Consult Allergies and Home Medications Allergies Coded Allergies: morphine (Unverified Allergy, Severe, VOMITING, 12/13/10) latex (Unverified Allergy, Mild, RASH, 12/13/10) ondansetron (Unverified Allergy, Mild, Rash at IV site, 02/25/06) iron (Verified Allergy, Unknown, 02/23/06) metoclopramide (Verified Allergy, Unknown, 02/23/06) Home Medications Albuterol Sulfate 1 Puff Puff, 2 PUFF IH Q4H PRN for SHORTNESS OF BREATH, ( Reported) 1 PUFF = 90 MCG Amoxicillin 500 Mg Capsule, 500 MG PO QID, (Reported) #16 CAPSULES FILLED 10-03-17 Cyclobenzaprine HCl 10 Mg Tablet, 10 MG PO TID PRN for MUSCLE SPASMS, (Reported) Hydrocodone/Acetaminophen 1 Each Tablet, 1 TAB PO TID PRN for PAIN-MODERATE, ( Reported) Hydrocodone/Ibuprofen 1 Each Tablet, 1 TAB PO Q4H PRN for TOOTH PAIN, (Reported) Ibuprofen 600 Mg Tablet, 600 MG PO Q6H PRN for PAIN-MILD, (Reported) Ketorolac Tromethamine 10 Mg Tablet, 10 MG PO Q6H PRN for PAIN-MODERATE TO SEVERE, (Reported) Ondansetron 4 Mg Tab.rapdis, 4 MG PO TID PRN for NAUSEA/VOMITING-1ST LINE, ( Reported) Promethazine HCl 25 Mg Supp, 25 MG RC Q4H PRN for NAUSEA/VOMITING-2ND LINE, ( Reported) Patient Home Medication List Home Medication List Reviewed: Yes Past Qhwwowg-Qvdwsf-Hvpygb Hx Patient Social History Marrital Status: Alcohol Use: Denies Use Recreational Drug Use: No Smoking Status: Never a Smoker Physical Abuse Screen: No Sexual Abuse: No Recent Foreign Travel: No Contact w/other who traveled: No Recent Hopitalizations: No Recent Infectious Disease Expo: No Immunizations Up To Date Date of Influenza Vaccine: Jan 02, 2012 Seasonal Allergies Seasonal Allergies: Yes Surgeries Yes Appendectomy, Gallbladder, Orthopedic, Renal Respiratory Yes Cardiovascular No (ABNORMAL STRESS TEST AND CARDIAC CATH 2014--NO INTERVENTION/MILD DISEASE) Neurological No Reproductive System Hx Reproductive Disorders: Yes Sexually Transmitted Disease: No Female Reproductive Disorders: Ovarian Cyst Genitourinary Yes Kidney Stones Gastrointestinal Yes ( GABI AND APPY) Colitis, Esophagitis, Gall Bladder Disease Musculoskeletal Yes Fractures Endocrine History of Endocrine Disorders: Yes (HYPERGLYCEMIA IN PAST) HEENT History of HEENT Disorders: No Cancer No Psychosocial History of Psychiatric Problem: No Integumentary History of Skin or Integumenta: No Blood Transfusions History of Blood Disorders: No Adverse Reaction to a Blood Tr: No Family Medical History Family Hx: AORTIC VALVE REPLACEMENT 19 FATHER G8 SISTER FH: congestive heart failure G8 SISTER Constitutional: see HPI Physical Exam Vital Signs Vital Signs - First Documented 10/05/17 10/05/17 18:10 21:13 Temp 97.8 Pulse 84 Resp 20 B/P (MAP) 180/102 (128) Pulse Ox 96 O2 Delivery Room Air Capillary Refill : Less Than 3 Seconds Height, Weight, BMI Height: 5'4.00" Weight: 222lbs. 0.0oz. 100.307214qh; 38.1 BMI Method:Stated General Appearance: Moderate Distress (In the emergency department) HEENT: Normal ENT Inspection Neck: Supple Respiratory: Lungs Clear Cardiovascular: Regular Rate, Rhythm Gastrointestinal: Soft Rectal: Deferred Back: CVA Tenderness (L) Extremity: Normal Capillary Refill Comments NAME: ELEANOR LINARES MED REC#: [id number] PT STATUS: ADM Salima : 1975 PHYSICIAN: TYLER LIZARRAGA MD ADMIT DATE: 10/05/17/ Signed Date of Exam: 10/05/17 CT ABD/PELVIS WO(KIDNEY STONE) Clinical indication: Patient with left-sided pain with hematuria and history of kidney stones. Exam: CT exam of the abdomen and pelvis is performed without IV or oral contrast using stone protocol. Comparisons: CT scan of the abdomen and pelvis without contrast dated 08/29/2017. Findings: Visualized lung bases: Unremarkable. Liver: Unremarkable as visualized. Gallbladder: The gallbladder is surgically resected. Pancreas: Unremarkable as visualized. Spleen: Unremarkable as visualized. Adrenal glands: Unremarkable. Kidneys/ ureters: There is interval development of 5 mm stone seen lodged within the distal left ureter/left UVJ region. There is mild left hydroureteronephrosis with minimal periureteral fat stranding. There are no other urinary tract stones seen. Otherwise both kidneys are unremarkable. The previously seen stone in the proximal left ureter is not seen and this stone may represent the stone noted proximally. Aorta: Unremarkable as visualized. Intraabdominal/ retroperitoneal contents: Unremarkable. Intestines: Unremarkable as visualized. Appendix: Surgically resected. Bladder: Unremarkable as visualized. Pelvic organs: Roughly stable 2.9 cm left adnexal cystic structure noted. Extra abdominal/ pelvis regions: Unremarkable. Abdominal wall: Unremarkable. Bones: Again seen chronic bilateral L5 spondylolysis is seen with no significant anterolisthesis. There are degenerative spurs involving the lumbar spine. Impression: 1: Interval migration of the previously seen 5 mm stone in the proximal left ureter which is now seen in the distal left ureter/UVJ region with mild left hydroureteronephrosis and mild adjacent fat stranding. 2: Stable 2.9 cm left adnexal cyst. Dictated by: Dictated on workstation # [id number] Dict: 10/05/172028 Trans: 10/05/172234 Interpreted by: RINKU MERAZ MD Electronically signed by: RINKU MERAZ MD 10/05/172234 Assessment/Plan Assessment and Plan 1. Left-sided urolithiasis -- distal ureter -Emergency room physician has contacted urology in consultation in order -IV fluids initiated in ED during the evening of October 05 2. Left-sided hydroureteronephrosis--mild 3. Significant pain -Patient has received fentanyl in ED without significant relief. Dilaudid has been given but will be tapered as she improves. Admission Diagnosis 1. Left-sided urolithiasis -- distal ureter 2. Left-sided hydroureteronephrosis--mild 3. Significant pain Admission Status: Observation Clinical Quality Measures DVT/VTE Risk/Contraindication: Risk Factor Score Per Nursin RFS Level Per Nursing on Admit: 2=Moderate YURIY WELCH MD Oct 06, 2017 07:12
[2017-10-06] MEDS ORDERED: DEXTROSE INJ SCH ×2 (07:30)
[2017-10-06] MEDS ORDERED: FENTANYL INJ SCH ×2 (07:30)
[2017-10-06] MEDS: KETOROLAC 30 MG/ML VIAL IVP PRN ×3 (07:32→22:27)
--- NOTE | 2017-10-06 07:41 | CONSULTATION REPORT ---
DATE OF SERVICE: 10/06/2017 ATTENDING PHYSICIAN: Yuriy Davis MD. SUMMARY: A 42-year-old white lady with history of urolithiasis, who has been battling a 5 mm stone in the left ureter originally at the proximal ureter. She was offered surgery on multiple occasions, but she wanted to observe. She presented to the emergency room with severe intractable pain and the stone was seen by CT scan and KUB to be down at the very close or at the UV junction on the left side. On physical exam, she has tenderness on the left side. She is in moderate distress. She has not passed the stone yet. Her labs were reviewed and were distant. She has no UTI and no fever. ASSESSMENT: Left distal - UVJ ureteral stone. PLAN: I gave the patient options to either wait until Friday when the machine is here in case I cannot get the stone by ureteroscopy. She wants to have something done as soon as possible, so we will do it tomorrow. We will do a left ureteroscopy with stone lithotripsy, possible basket stent or lithotomy. If we cannot do it by that way, then on Friday we can always blast the stone and she understands and knows that. Job ID: [id number] DocumentID: [id number] Dictated Date: 10/06/2017 07:01:34 [employer] Date: 10/06/2017 07:40:46 Dictated By: JULEE YOUNG MD
[2017-10-06 08:00] VITALS: BP 121/59
[2017-10-06] MEDS ORDERED: RT-ALBUINH IH (09:40)
[2017-10-06] MEDS ORDERED: HYDR-87 PO (09:40)
[2017-10-06] MEDS ORDERED: HYDR-3816 PO (09:40)
[2017-10-06] MEDS ORDERED: KETO10TA PO (09:40)
[2017-10-06] MEDS ORDERED: ONDA4TAB11 PO (09:40)
[2017-10-06] MEDS ORDERED: CYCL10TA9 PO (09:40)
[2017-10-06] MEDS ORDERED: AMOX500C2 PO (09:40)
[2017-10-06] MEDS ORDERED: IBUP-1773 PO (09:40)
[2017-10-06] MEDS ORDERED: PROM25SU10 RC (09:42)
[2017-10-06 12:00] VITALS: BP 139/65
--- OUTSIDE RECORDS SUMMARY | 2017-10-06 13:02 | XMS REPORT | Clinical Summary ---
Author Author [facility] Organization [facility] Address Unknown Phone Unavailable Care Team Providers Care Cable Ferry Operator Name Role Phone Unverified, Unverified Md PCP Unavailable Source Comments Some departments are not documenting in the electronic medical record. If you do not see the information that you expected, contact Release of Information in the Health Information Management department at [phone] for further assistance in locating additional records.[facility] Allergies Not on File Current Medications Not on file Active Problems Not on file Social History Tobacco Use Types Packs/Day Years Used Date Never Assessed Sex Assigned at Date Recorded Not on file Last Filed Vital Signs Not on file Plan of Treatment Health Maintenance Due Date Last Done Comments PHYSICAL (COMPREHENSIVE) 08/23/1983 EXAM PERTUSSIS VACCINE 08/23/1987 HIV SCREENING 08/23/1991 TETANUS VACCINE 1993 INFLUENZA VACCINE 12/22/2017 Results Not on filefrom Last 3 Months
--- OUTSIDE RECORDS SUMMARY | 2017-10-06 13:03 | XMS REPORT | Continuity of Care Document ---
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 by dipstick NEGATIVE NEGATIVE Automated urine sediment erythrocyte count by microscopy (number/high power field) [HPF] NRG Automated urine sediment leukocyte count by microscopy (number/high power field ) [HPF] NRG Bacteria detection in urine sediment by light microscopy TRACE NRG Squamous epithelial cells detection in urine sediment by light microscopy 2-5 NRG Crystals detection in urine sediment by light microscopy NONE NRG Casts detection in urine sediment by light microscopy NONE NRG Mucus detection in urine sediment by light microscopy NEGATIVE NRG Complete urinalysis with reflex to culture NO NRG Complete urinalysis with reflex to culture - 10/05/17 18:34 Urine color determination YELLOW NRG Urine clarity determination SLIGHTLY CLOUDY NRG Urine pH measurement by test strip 5 5-9 Specific gravity of urine by test strip 1.025 1.016- 1.022 Urine protein assay by test strip, semi-quantitative 1+ NEGATIVE Urine glucose detection by automated test strip NEGATIVE NEGATIVE Erythrocytes detection in urine sediment by light microscopy 5+ NEGATIVE Urine ketones detection by automated test strip NEGATIVE NEGATIVE Urine nitrite detection by test strip NEGATIVE NEGATIVE Urine total bilirubin detection by test strip NEGATIVE NEGATIVE Urine urobilinogen measurement by automated test strip (mass/volume) NORMAL NORMAL Urine leukocyte esterase detection by dipstick NEGATIVE NEGATIVE Automated urine sediment erythrocyte count by microscopy (number/high power field) RARE NRG Automated urine sediment leukocyte count by microscopy (number/high power field ) NONE NRG Bacteria detection in urine sediment by light microscopy NEGATIVE NRG Squamous epithelial cells detection in urine sediment by light microscopy 5-10 NRG Crystals detection in urine sediment by light microscopy NONE NRG Casts detection in urine sediment by light microscopy NONE NRG Mucus detection in urine sediment by light microscopy NEGATIVE NRG Complete urinalysis with reflex to culture YES NRG Yeast detection in urine sediment by light microscopy MODERATE NRG Complete blood count (CBC) with automated white blood cell (WBC) differential - 10/05/17 18:47 Blood leukocytes automated count (number/volume) 12.4 10*3/uL 4.3-11.0 Blood erythrocytes automated count (number/volume) 4.32 10*6/uL 4.35-5.85 Venous blood hemoglobin measurement (mass/volume) 11.5 g/dL 11.5-16.0 Blood hematocrit (volume fraction) 35 % 35-52 Automated erythrocyte mean corpuscular volume 81 [foz_us] 80-99 Automated erythrocyte mean corpuscular hemoglobin (mass per erythrocyte) 27 pg 25-34 Automated erythrocyte mean corpuscular hemoglobin concentration measurement ( mass/volume) 33 g/dL 32-36 Automated erythrocyte distribution width ratio 15.6 % 10.0-14.5 Automated blood platelet count (count/volume) 271 10*3/uL 130-400 Automated blood platelet mean volume measurement 10.5 [foz_us] 7.4-10.4 Automated blood neutrophils/100 leukocytes 69 % 42-75 Automated blood lymphocytes/100 leukocytes 21 % 12-44 Blood monocytes/100 leukocytes 7 % 0-12 Automated blood eosinophils/100 leukocytes 2 % 0-10 Automated blood basophils/100 leukocytes 0 % 0-10 Blood neutrophils automated count (number/volume) 8.5 10*3 1.8-7.8 Blood lymphocytes automated count (number/volume) 2.6 10*3 1.0-4.0 Blood monocytes automated count (number/volume) 0.9 10*3 0.0-1.0 Automated eosinophil count 0.3 10*3/uL 0.0-0.3 Automated blood basophil count (count/volume) 0.0 10*3/uL 0.0-0.1 Whole blood basic metabolic panel - 10/05/17 18:47 Serum or plasma sodium measurement (moles/volume) 136 mmol/L 135-145 Serum or plasma potassium measurement (moles/volume) 4.0 mmol/L 3.6-5.0 Serum or plasma chloride measurement (moles/volume) 109 mmol/L 98-107 Carbon dioxide 17 mmol/L 21-32 Serum or plasma anion gap determination (moles/volume) 10 mmol/L 5-14 Serum or plasma urea nitrogen measurement (mass/volume) 17 mg/dL 7-18 Serum or plasma creatinine measurement (mass/volume) 0.99 mg/dL 0.60-1.30 Serum or plasma urea nitrogen/creatinine mass ratio 17 NRG Serum or plasma creatinine measurement with calculation of estimated glomerular filtration rate > NRG Serum or plasma glucose measurement (mass/volume) 88 mg/dL 70-105 Serum or plasma calcium measurement (mass/volume) 8.6 mg/dL 8.5-10.1 Complete blood count (CBC) with automated white blood cell (WBC) differential - 10/06/17 05:48 Blood leukocytes automated count (number/volume) 9.2 10*3/uL 4.3-11.0 Blood erythrocytes automated count (number/volume) 4.16 10*6/uL 4.35-5.85 Venous blood hemoglobin measurement (mass/volume) 11.1 g/dL 11.5-16.0 Blood hematocrit (volume fraction) 34 % 35-52 Automated erythrocyte mean corpuscular volume 81 [foz_us] 80-99 Automated erythrocyte mean corpuscular hemoglobin (mass per erythrocyte) 27 pg 25-34 Automated erythrocyte mean corpuscular hemoglobin concentration measurement ( mass/volume) 33 g/dL 32-36 Automated erythrocyte distribution width ratio 15.2 % 10.0-14.5 Automated blood platelet count (count/volume) 233 10*3/uL 130-400 Automated blood platelet mean volume measurement 10.2 [foz_us] 7.4-10.4 Automated blood neutrophils/100 leukocytes 61 % 42-75 Automated blood lymphocytes/100 leukocytes 28 % 12-44 Blood monocytes/100 leukocytes 7 % 0-12 Automated blood eosinophils/100 leukocytes 3 % 0-10 Automated blood basophils/100 leukocytes 0 % 0-10 Blood neutrophils automated count (number/volume) 5.6 10*3 1.8-7.8 Blood lymphocytes automated count (number/volume) 2.6 10*3 1.0-4.0 Blood monocytes automated count (number/volume) 0.6 10*3 0.0-1.0 Automated eosinophil count 0.3 10*3/uL 0.0-0.3 Automated blood basophil count (count/volume) 0.0 10*3/uL 0.0-0.1 Whole blood basic metabolic panel - 10/06/17 05:48 Serum or plasma sodium measurement (moles/volume) 137 mmol/L 135-145 Serum or plasma potassium measurement (moles/volume) 3.8 mmol/L 3.6-5.0 Serum or plasma chloride measurement (moles/volume) 110 mmol/L 98-107 Carbon dioxide 20 mmol/L 21-32 Serum or plasma anion gap determination (moles/volume) 7 mmol/L 5-14 Serum or plasma urea nitrogen measurement (mass/volume) 14 mg/dL 7-18 Serum or plasma creatinine measurement (mass/volume) 0.83 mg/dL 0.60-1.30 Serum or plasma urea nitrogen/creatinine mass ratio 17 NRG Serum or plasma creatinine measurement with calculation of estimated glomerular filtration rate > NRG Serum or plasma glucose measurement (mass/volume) 95 mg/dL 70-105 Serum or plasma calcium measurement (mass/volume) 8.3 mg/dL 8.5-10.1 Encounters ACCT No. Visit Date/Time Discharge Status Pt. Type Provider Facility Loc./Unit Complaint [id number] 04/06/2012 06:07:00 04/08/2012 13:14:00 DIS Inpatient Mehran Sheth MD [facility] on [address] [id number] 09/15/2017 12:36:00 09/15/2017 23:59:59 CLS Outpatient JULEE YOUNG MD [facility] RAD STONES [id number] 09/01/2017 13:33:00 09/01/2017 23:59:59 CLS Outpatient JULEE YOUNG MD [facility] RAD STONES [id number] 08/29/2017 04:19:00 08/29/2017 07:06:00 DIS Emergency SARAI CASEY DO [facility] ER POSS KIDNEY STONE [id number] 06/25/2017 10:39:00 06/25/2017 23:59:59 CLS Outpatient MAYITO REEVES DO [facility] RAD RLQ PAIN [id number] 03/18/2017 09:32:00 03/18/2017 23:59:59 CLS Outpatient LEANDRO WELCH MD [facility] RAD SCREENING MAMMO [id number] 06/06/2016 09:22:00 06/06/2016 23:59:59 CLS Outpatient MAYITO REEVES DO [facility] LAB PRE-DIABETES [id number] 04/08/2016 09:09:00 04/08/2016 23:59:59 CLS Outpatient LEANDRO WELCH MD [facility] RAD LT BREAST LUMP [id number] 04/01/2016 07:50:00 04/01/2016 23:59:59 CLS Outpatient LEANDRO WELCH MD [facility] RAD LUMP LEFT UPPER OUTER BREAST [id number] 03/22/2016 11:15:00 03/22/2016 23:59:59 CLS Outpatient LEANDRO WELCH MD [facility] RAD SCREENING [id number] 12/27/2015 20:00:00 12/27/2015 22:47:00 DIS Emergency JACINTO SARAI Buchanan [facility] ER STREP THROAT [id number] 12/12/2014 08:08:00 12/12/2014 11:07:00 DIS Outpatient JOSE G BALLARD MD [facility] SDC REFLUX; FAMILY HX COLON CANCER; BLOOD IN STOOLS [id number] 12/08/2014 06:03:00 12/08/2014 23:59:59 CLS Outpatient JOSE G BALLARD MD [facility] PREOP REFLUX; FAMILY HX COLON CANCER;BLOOD IN STOOLS [id number] 08/19/2014 08:00:00 08/19/2014 23:59:59 CLS Preadmit MAYITO REEVES DO [facility] CARD TACHYCARDIA, HYPOTENSION [id number] 05/20/2014 07:46:00 08/18/2014 00:01:00 DIS Outpatient MAYITO REEVES DO [facility] CARD TACHYCARDIA, HYPOTENSION [id number] 07/27/2014 06:48:00 07/27/2014 14:20:00 DIS Outpatient SCOT BRITO MD [facility] CATH ABNORMAL STRESS, CP,SOB, PALPITATIONS,TACHYCARDIA [id number] 07/20/2014 08:16:00 07/20/2014 23:59:59 CLS Outpatient SCOT BRITO MD [facility] CARD CP,PALPITATIONS,KENYA [id number] 07/14/2014 06:45:00 07/14/2014 23:59:59 CLS Outpatient MAYITO REEVES DO [facility] CARD SEE ORDER-CP/786.50 [id number] 03/04/2014 20:30:00 03/05/2014 06:45:00 DIS Outpatient MAYITO REEVES DO [facility] SLEEP KENYA [id number] 03/02/2014 14:21:00 03/02/2014 23:59:59 CLS Outpatient LEANDRO WELCH MD [facility] RAD LEFT BREAST DIMPLING [id number] 10/05/2017 18:55:00 Document Registration [id number] 05/25/2014 14:27:00 Document Registration [id number] 06/08/2012 07:31:00 Document Registration [id number] 06/03/2012 07:47:00 Document Registration [id number] 02/24/2012 07:45:00 Document Registration [id number] 09/13/2011 09:41:00 Document Registration [id number] 08/23/2011 08:20:00 Document Registration [id number] 07/23/2011 15:13:00 Document Registration [id number] 06/17/2011 11:55:00 Document Registration [id number] 03/26/2011 16:31:00 Document Registration [id number] 03/06/2011 17:00:00 Document Registration [id number] 01/25/2011 08:42:00 Document Registration [id number] 12/20/2010 05:36:00 Document Registration [id number] 12/18/2010 09:09:00 Document Registration [id number] 12/13/2010 08:45:00 Document Registration
[2017-10-06 15:25] VITALS: BP 131/66
[2017-10-06 19:45] VITALS: BP 137/72
[2017-10-06] MEDS ORDERED: cefTRIAXone 1 GM/NS 50 ML IVPB IV SCH ×2 (20:00)
[2017-10-06] MEDS: PROMETHAZINE INJ 25 MG/ML (PHENERGAN) AMP IV PRN (23:48)
[2017-10-07 00:37] VITALS: BP 114/64
[2017-10-07 04:11] VITALS: BP 132/67
[2017-10-07] MEDS: NS IV 1000 ML 1,000 ML IV SCH (06:52)
--- NOTE | 2017-10-07 07:41 | Progress Note-Pre Operative ---
Pre-Operative Progress Note H&P Reviewed The H&P was reviewed, patient examined and no changes noted. Date Seen by Provider: Oct 07, 2017 Time Seen by Provider: 07:41 Date H&P Reviewed: Oct 07, 2017 Time H&P Reviewed: 07:41 Pre-Operative Diagnosis: LT DISTAL URETERAL STONE JULEE YOUNG MD Oct 07, 2017 7:41 am
--- NOTE | 2017-10-07 07:55 | Progress Note (SOAP) ---
Subjective Date Seen by Provider: Oct 07, 2017 Time Seen by Provider: 07:50 Subjective/Events-last exam Still having flank pain but it is improved with IV toradol. Scheduled for basket procedure this am and if fails lithotripsy 10/08 Objective Exam Vital Signs Date Time Temp Pulse Resp B/P (MAP) Pulse Ox O2 Delivery O2 Flow Rate FiO2 10/07/17 04:11 98.5 82 18 132/67 (88) 100 Room Air 10/07/17 00:37 98.9 91 19 114/64 (81) 98 Room Air 10/06/17 21:00 20 10/06/17 19:45 98.3 84 20 137/72 (93) 99 Room Air 10/06/17 15:25 98.8 79 18 131/66 (87) 98 Room Air 10/06/17 12:00 98.3 85 20 139/65 (89) 94 Room Air 10/06/17 11:53 16 10/06/17 08:00 98.3 78 20 121/59 (79) 96 Room Air I & O 10/07/17 07:00 Intake Total 1790 ml Output Total 6075 ml Balance -4285 ml Capillary Refill : Less Than 3 Seconds General Appearance: Mild Distress Respiratory: Lungs Clear Cardiovascular: Regular Rate, Rhythm Results Lab Microbiology 10/05/17 Urine Culture - Preliminary, Resulted Gram Negative Bacillus 1 Assessment/Plan Assessment/Plan Assess & Plan/Chief Complaint 1. Left-sided urolithiasis -- distal ureter -Emergency room physician has contacted urology in consultation in order -IV fluids initiated in ED during the evening of October 0510/07 -basket procedure scheduled for this am 2. Left-sided hydroureteronephrosis--mild 3. Significant pain -Patient has received fentanyl in ED without significant relief. Dilaudid has been given but will be tapered as she improves. 10/05 -Toradol 30 mg IV q6hr is helping her pain Clinical Quality Measures Admission Status Admission Dx 1. Left-sided urolithiasis -- distal ureter 2. Left-sided hydroureteronephrosis--mild 3. Significant pain DVT/VTE Risk/Contraindication: Risk Factor Score Per Nursin RFS Level Per Nursing on Admit: 2=Moderate LEANDRO WELCH MD Oct 07, 2017 07:55
[2017-10-07 08:00] VITALS: BP 104/69
[2017-10-07] MEDS: KETOROLAC 30 MG/ML VIAL IVP PRN ×2 (08:02→13:26)
[2017-10-07] MEDS ORDERED: LACTATED RINGERS 1,000 ML IV PRN (08:09)
[2017-10-07] MEDS: PROMETHAZINE INJ 25 MG/ML (PHENERGAN) AMP IV PRN (09:23)
[2017-10-07] MEDS ORDERED: MIDAZOLAM 2 MG/2 ML (VERSED) VIAL ONE (09:38)
[2017-10-07] MEDS ORDERED: DEXAMETHASONE 10 MG/ML (DECADRON) 1 ML VIAL ONE (10:18)
[2017-10-07] MEDS ORDERED: LIDOCAINE PF 2% 5 ML (XYLOCAINE) VIAL ONE (10:18)
[2017-10-07] MEDS ORDERED: fentaNYL INJECTION 100 MCG/2 ML AMP ONE (10:18)
[2017-10-07] MEDS ORDERED: proPOfol 200 MG/20 ML (DIPRIVAN) VIAL IV ONE ×2 (10:18→11:27)
[2017-10-07] MEDS ORDERED: ROCURONIUM 10 MG/ML 5 ML SYRINGE IV ONE ×2 (10:18→11:27)
[2017-10-07] MEDS ORDERED: SEVOFLURANE (ULTANE) 15 ML INHAL SOLN ONE (10:21)
[2017-10-07] MEDS ORDERED: FAMOTIDINE 20MG/2ML IV (PEPCID) ONE (10:44)
--- NOTE | 2017-10-07 11:46 | Progress Note-Post Operative ---
Post-Operative Progess Note Surgeon (s)/Police Shift Commander (s) Surgeon JULEE YOUNG MD Police Shift Commander: N/A Pre-Operative Diagnosis LT DISTAL URETERAL STONE Post-Operative Diagnosis SAME Procedure & Operative Findings Date of Procedure 10/07/17 Procedure Performed/Findings LT URETEROSCOPY WITH STONE BASKET Anesthesia Type GENERAL Estimated Blood Loss Estimated blood loss (mL): N/A Specimens/Packing Specimens Removed STONE Packing: N/A JULEE YOUNG MD Oct 07, 2017 11:46 am
--- NOTE | 2017-10-07 11:50 | Discharge Inst-Urology ---
Discharge Inst-Urology Patient Instructions/Follow Up Plan Please make appointment to been seen in office in 4 weeks. Atone for analysis post seen by patient, son has it Increase oral fluids for 48 hours and then as needed. Diet and Activity as tolerated. If questions or concerns contact your physician Or seek help at emergency department. JULEE YOUNG MD Oct 07, 2017 11:50 am
[2017-10-07] MEDS ORDERED: HYDROmorphone 1 MG/ML (DILAUDID) 1 ML SYRINGE ONE (12:26)
[2017-10-07 12:55] VITALS: BP 104/69
[2017-10-07] MEDS ORDERED: HYDROmorphone 1 MG/ML (DILAUDID) 1 ML SYRINGE IV PRN (14:00)
[2017-10-07 14:25] VITALS: BP 132/70
[2017-10-07 14:38] VITALS: BP 132/70
--- NOTE | 2017-10-07 17:32 | OPERATIVE REPORT ---
DATE OF SERVICE: 10/07/2017 PREOPERATIVE DIAGNOSIS: Left distal ureteral stone. POSTOPERATIVE DIAGNOSIS: Left distal ureteral stone. OPERATION PERFORMED: Left ureteroscopy with stone basket . SURGEON: Tonny Young MD. EXECUTIVE DIRECTOR OF MARKETING: None. ANESTHESIA: General. COMPLICATIONS: None. DESCRIPTION OF PROCEDURE: Under satisfactory general anesthesia, the patient in lithotomy position, genitalia were prepped and draped in the usual sterile fashion. Cystoscope was introduced in the bladder. The bladder was essentially normal except that the intramural portion of the left ureter was somewhat swollen. Using the foroblique lens, I dilated the left ureteral orifice intramural portion to accommodate a 6.9-Tunisian semi-rigid ureteroscope. I visualized the stone. However, during manipulation, it seems to have disimpacted from the ureter wall and was floating. I did not want to lose it proximally, so I engaged it was a 3.0-Tunisian June basket and extracted it completely. I went back to ureteroscope to confirm the integrity of the ureter and no fragments or other stones. I removed the ureteroscope, reinserted the cystoscope to empty the bladder. The patient tolerated the procedure and anesthesia well and was sent to recovery room in stable condition. 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
--- NOTE | 2017-10-08 07:56 | Anesthesia-General Post-Op ---
General Patient Condition Mental Status/LOC: Same as Preop Cardiovascular: Satisfactory Nausea/Vomiting: Absent Respiratory: Satisfactory Pain: Controlled Complications: Absent Post Op Complications Complications None Follow Up Care/Instructions Patient Instructions None needed. Anesthesia/Patient Condition Patient Condition Patient is doing well, no complaints, stable vital signs, no apparent adverse anesthesia problems. No complications reported per nursing. KATIE RICE CRNA Oct 08, 2017 07:56
--- OUTSIDE RECORDS SUMMARY | 2017-10-10 11:11 | XMS REPORT | Clinical Summary ---
Author Author [facility] Organization [facility] Address Unknown Phone Unavailable Care Team Providers Care Backfiller Name Role Phone Unverified, Unverified Md PCP Unavailable Source Comments Some departments are not documenting in the electronic medical record. If you do not see the information that you expected, contact Release of Information in the Health Information Management department at [phone] for further assistance in locating additional records.[facility] Allergies Not on File Current Medications Not [...]
--- OUTSIDE RECORDS SUMMARY | 2017-10-10 11:13 | XMS REPORT | Continuity of Care Document ---
Author Author [facility] Organization [facility] Address Unknown Phone Unavailable Allergies Active Description Code Type Severity Reaction Onset Reported/Identified Relationship to Patient Clinical Status Yes iron [id number] Drug Allergy Unknown N/A 02/23/2006 Yes metoclopramide [id number] Drug Allergy Unknown N/A 02/23/2006 Yes ondansetron [id number] Drug Allergy Mild Rash at IV site 02/25/2006 Yes morphine [id number] Drug Allergy Severe VOMITING 12/13/2010 Yes latex [id number] Drug Allergy Mild RASH 12/13/2010 Yes morphine [...] BRITO MD Ot 414.01 CORONARY ATHEROSCLEROSIS OF [place] CORON 07/27/2014 SCOT BRITO MD Ot 785.0 TACHYCARDIA NOS 07/27/2014 SCOT BRITO MD Ot 785.1 PALPITATIONS 07/27/2014 SCOT BRITO MD Ot 786.50 CHEST PAIN NOS 07/27/2014 SCOT BRITO MD Ot 794.30 ABN CARDIOVASC STUDY NOS 07/27/2014 SCOT BRITO MD Ot V58.69 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 08/29/2017 SARAI [...] NAUSEA 09/01/2017 SARAI CASEY DO Ot Z79.52 RETIREMENT (CURRENT) USE OF SYSTEMIC STER 09/01/2017 SARAI [...] YOUNG MD Ot N20.1 CALCULUS OF URETER 10/07/2017 REBEKAH MUNIZ, LEANDRO Thurman Ot N13.2 HYDRONEPHROSIS WITH RENAL AND URETERAL C Procedures Code Description Performed By Performed On ANES INJECT PERIPH NERVE Mehran Sheth MD 04/06/2012 77.77 EXC TIB/FIB FOR GRAFT Mehran Sheth MD 04/06/2012 81.11 ANKLE FUSION Mehran Sheth MD 04/06/2012 [id number] EXTIRPATION OF MATTER FROM LEFT URETER, 10/07/2017 Results Test Result Range Complete blood count [...] NRG Blood erythrocyte morphology finding identification NORMAL [facility] Comprehensive metabolic panel - 12/27/15 20:45 Serum [...] culture - 12/27/15 20:50 Bacterial throat culture [id number] NRG FREE TEXT EXTERNAL PLUS NORMAL KATIE [...] urine sediment by light microscopy MODERATE NRG Bacterial urine culture - 10/05/17 18:34 Bacterial urine culture [id number] NRG COLONY COUNT . NRG FTX;REPORTABLE 30,000 CFU/ML NRG FREE TEXT ENTRY 2 RML SUSCEPTIBILITY PRINTED 804 NRG RML Sensitivity Panel - 10/05/17 18:34 Gentamicin susceptibility test by minimum inhibitory concentration < = NRG Trimethoprim/sulfamethoxazole susceptibility test by minimum inhibitoryconcentration <= NRG Levofloxacin susceptibility test by minimum inhibitory concentration > NRG Ampicillin susceptibility test by minimum inhibitory concentration > NRG Cefazolin susceptibility test by minimum inhibitory concentration 2 NRG Ceftriaxone susceptibility test by minimum inhibitory concentration <= NRG Ciprofloxacin susceptibility test by minimum inhibitory concentration > NRG Meropenem susceptibility test by minimum inhibitory concentration < = NRG Nitrofurantoin susceptibility test by minimum inhibitory concentration <= NRG Amoxicillin and clavulanate potassium susc RAGHAV = NRG RML Sensitivity Panel - 10/05/17 18:34 Gentamicin susceptibility test by minimum inhibitory concentration < = NRG Trimethoprim/sulfamethoxazole susceptibility test by minimum inhibitoryconcentration > NRG Levofloxacin susceptibility test by minimum inhibitory concentration <= NRG Ampicillin susceptibility test by minimum inhibitory concentration > NRG Cefazolin susceptibility test by minimum inhibitory concentration < = NRG Ceftriaxone susceptibility test by minimum inhibitory concentration <= NRG Ciprofloxacin susceptibility test by minimum inhibitory concentration <= NRG Meropenem susceptibility test by minimum inhibitory concentration < = NRG Nitrofurantoin susceptibility test by minimum inhibitory concentration <= NRG Amoxicillin and clavulanate potassium susc RAGHAV <= NRG Complete blood count (CBC) with automated [...] plasma calcium measurement (mass/volume) 8.3 mg/dL 8.5-10.1 Urine beta human chorionic gonadotropin (hCG) measurement - 10/07/17 08:15 Urine beta human chorionic gonadotropin (hCG) measurement NEGATIVE NEGATIVE Encounters ACCT No. Visit Date/Time Discharge Status Pt. Type Provider Facility Loc./Unit Complaint [id number] 04/06/2012 06:07:00 04/08/2012 13:14:00 DIS Inpatient Mehran Sheth MD [facility] on [address] [id number] 10/05/2017 18:25:00 10/07/2017 14:35:00 DIS Inpatient LEANDRO WELCH MD [facility] 4TH L URETERAL STONE, HYDRONEPHROSIS [id number] 09/15/2017 12:36:00 09/15/2017 23:59:59 CLS Outpatient JULEE YOUNG MD [facility] RAD STONES [id number] 09/01/2017 13:33:00 09/01/2017 23:59:59 CLS Outpatient JULEE YOUNG MD [facility] RAD STONES [id number] 08/29/2017 04:19:00 08/29/2017 07:06:00 DIS Emergency SARAI CASEY DO [facility] ER POSS KIDNEY STONE [id number] 06/25/2017 10:39:00 06/25/2017 23:59:59 CLS Outpatient MAYITO REEVES DO [facility] RAD RLQ PAIN [id number] 03/18/2017 09:32:00 03/18/2017 23:59:59 CLS Outpatient LEANDRO WELCH MD [facility] RAD SCREENING MAMMO [id number] 06/06/2016 09:22:00 06/06/2016 23:59:59 CLS Outpatient MAYITO REEVES DO [facility] LAB PRE-DIABETES [id number] 04/08/2016 09:09:00 04/08/2016 23:59:59 CLS Outpatient LEANDRO WELCH MD [facility] RAD LT BREAST LUMP [id number] 04/01/2016 07:50:00 04/01/2016 23:59:59 CLS Outpatient LEANDRO WELCH MD [facility] RAD LUMP LEFT UPPER OUTER BREAST [id number] 03/22/2016 11:15:00 03/22/2016 23:59:59 CLS Outpatient LEANDRO WELCH MD [facility] RAD SCREENING [id number] 12/27/2015 20:00:00 12/27/2015 22:47:00 DIS Emergency SARAI CASEY DO [facility] ER STREP THROAT [id number] 12/12/2014 08:08:00 12/12/2014 11:07:00 DIS Outpatient JOSE G BALLARD MD [facility] SDC REFLUX; FAMILY HX COLON CANCER; BLOOD IN STOOLS [id number] 12/08/2014 06:03:00 12/08/2014 23:59:59 CLS Outpatient JOSE G BALLARD MD [facility] PREOP REFLUX; FAMILY HX COLON CANCER;BLOOD IN STOOLS [id number] 08/19/2014 08:00:00 08/19/2014 23:59:59 CLS Preadmit MAYITO REEVES DO [facility] CARD TACHYCARDIA, HYPOTENSION [id number] 05/20/2014 07:46:00 08/18/2014 00:01:00 DIS Outpatient MAYITO REEVES DO [facility] CARD TACHYCARDIA, HYPOTENSION [id number] 07/27/2014 06:48:00 07/27/2014 14:20:00 DIS Outpatient SCOT BRITO MD [facility] CATH ABNORMAL STRESS, CP,SOB, PALPITATIONS,TACHYCARDIA [id number] 07/20/2014 08:16:00 07/20/2014 23:59:59 CLS Outpatient ALISHA MUNIZ, SCOT Thurman [facility] CARD CP,PALPITATIONS,KENYA [id number] 07/14/2014 06:45:00 07/14/2014 23:59:59 CLS Outpatient MAYITO REEVES DO [facility] CARD SEE ORDER-CP/786.50 [id number] 03/04/2014 20:30:00 03/05/2014 06:45:00 DIS Outpatient MAYITO REEVES DO [facility] SLEEP KENYA [id number] 03/02/2014 14:21:00 03/02/2014 23:59:59 CLS Outpatient REBEKAH MUNIZ, LEANDRO Thurman [facility] RAD LEFT BREAST DIMPLING [id number] 05/25/2014 14:27:00 Document Registration [id number] 06/08/2012 07:31:00 Document Registration [id number] 06/03/2012 07:47:00 Document Registration [id number] 02/24/2012 07:45:00 Document Registration [id number] 09/13/2011 09:41:00 Document Registration [id number] 08/23/2011 08:20:00 Document Registration [id number] 07/23/2011 15:13:00 Document Registration [id number] 06/17/2011 11:55:00 Document Registration [id number] 03/26/2011 16:31:00 Document Registration [id number] 03/06/2011 17:00:00 Document Registration [id number] 01/25/2011 08:42:00 Document Registration [id number] 12/20/2010 05:36:00 Document Registration [id number] 12/18/2010 09:09:00 Document Registration [id number] 12/13/2010 08:45:00 Document Registration
--- NOTE | 2017-10-10 15:09 | Physician Query-Final Dx ---
JIMBO RUEDA 10/10/17 1509: Final Diagnosis Give Final Diagnosis Please give Final Diagnosis JULEE YOUNG MD 10/14/17 1025: Final Diagnosis Give Final Diagnosis LT URETERAL STONE WITH PAIN AND OBSTRUCTION JIMBO RUEDA Oct 10, 2017 15:09 JULEE YOUNG MD Oct 14, 2017 10:25
== END 2017-10-07 14:35 | disposition home or self-care (01) | DRG 669 ==
LOC: EDUNIT# 17:40 → ER 17:42 → UNDOADMOB 18:25 → OBSVTOIN 18:25 → 4TH 18:25 → INTOOBSV 18:25 → UNDODISIN 10-07 14:35
PROVIDERS: ADMIT Family Medicine; ATTEND Family Medicine
PROC: 0TC78ZZ Extirpation of Matter from Left Ureter, Via Natural or Artificial Opening Endoscopic (ICD-10-PCS; principal; 2017-10-07 10:58)
DX: N13.2 Hydronephrosis with renal and ureteral calculous obstruction (principal)
CPT/HCPCS: 36415; 74018; 74176; 80048; 81000; 84703; 85025; 87077; 87088; 87186; 96361; 96365; 96375; 96376

== ENCOUNTER 2017-11-14 13:46 | Outpatient (RCR) | payer OTHER ==
[~2017-11-14 13:46] MED LIST changes: +AMOX500C2 PO; +HYDR-87 PO; +IBUP-1773 PO; +ONDA4TAB11 PO; +PROM25SU10 RC; +RT-ALBUINH IH
== END 2017-11-21 | disposition home or self-care (01) ==
LOC: LAB 13:46
PROVIDERS: ATTEND Urology
DX: N20.0 Calculus of kidney (principal)
CPT/HCPCS: 82140; 82340; 82507; 82570; 83735; 83945; 83986; 84105; 84133; 84300; 84392; 84560

== ENCOUNTER 2018-01-03 13:51 | Emergency (ER) | payer OTHER ==
[~2018-01-03] VITALS: Ht 160 cm; Wt 93.4 kg
[2018-01-03] MEDS ORDERED: NS IV 1000 ML 1,000 ML IV SCH (14:12)
[2018-01-03] MEDS ORDERED: ONDANSETRON 4 MG/2 ML (SDV) Z0FRAN IVP ONE (14:15)
[2018-01-03] MEDS ORDERED: PROMETHAZINE INJ 25 MG/ML (PHENERGAN) AMP IVP STA (14:19)
[2018-01-03 14:27] LABS: BASOPHILS # (AUTO) 0.1 10^3/uL (0.0-0.1); BASOPHILS % (AUTO) 0 % (0-10); EOSINOPHILS # (AUTO) 0.2 10^3/uL (0.0-0.3); EOSINOPHILS % (AUTO) 2 % (0-10); HEMATOCRIT 43 % (35-52); HEMOGLOBIN 14.1 G/DL (11.5-16.0); LYMPHOCYTES # (AUTO) 2.5 X 10^3 (1.0-4.0); LYMPHOCYTES % (AUTO) 16 % (12-44); MEAN CORPUSCULAR HEMOGLOBIN 27 PG (25-34); MEAN CORPUSCULAR HGB CONC 33 G/DL (32-36); MEAN CORPUSCULAR VOLUME 80 FL (80-99); MEAN PLATELET VOLUME 10.3 FL (7.4-10.4); MONOCYTES % (AUTO) 6 % (0-12); NEUTROPHILS # (AUTO) 11.5 X 10^3 (1.8-7.8); NEUTROPHILS % (AUTO) 76 % (42-75); PLATELET COUNT 365 10^3/uL (130-400); RED BLOOD COUNT 5.32 10^6/uL (4.35-5.85); RED CELL DISTRIBUTION WIDTH 14.9 % (10.0-14.5); WHITE BLOOD COUNT 15.3 10^3/uL (4.3-11.0)
[2018-01-03 14:38] LABS: ALANINE AMINOTRANSFERASE 17 U/L (0-55); ALBUMIN 4.9 GM/DL (3.2-4.5); ALKALINE PHOSPHATASE 79 U/L (40-136); BILIRUBIN,TOTAL 0.4 MG/DL (0.1-1.0); BUN/CREATININE RATIO 20; CALCIUM 10.5 MG/DL (8.5-10.1); CARBON DIOXIDE 19 MMOL/L (21-32); CHLORIDE 106 MMOL/L (98-107); CREATININE SERUM 1.04 MG/DL (0.60-1.30); GFR ESTIMATED 58; GLUCOSE 129 MG/DL (70-105); POTASSIUM 4.1 MMOL/L (3.6-5.0); SODIUM 139 MMOL/L (135-145); TOTAL PROTEIN 8.5 GM/DL (6.4-8.2)
[2018-01-03 14:41] LABS: BILIRUBIN,URINE NEGATIVE (NEGATIVE); CLARITY,URINE SLIGHTLY CLOUDY; COLOR,URINE YELLOW; GLUCOSE, URINE (UA) NEGATIVE (NEGATIVE); KETONES,URINE NEGATIVE (NEGATIVE); LEUKOCYTE ESTERASE ,URINE 1+ (NEGATIVE); NITRITE,URINE NEGATIVE (NEGATIVE); PH,URINE 5 (5-9); PROTEIN,URINE 2+ (NEGATIVE); UROBILINOGEN,URINE NORMAL (NORMAL)
[2018-01-03 14:53] LABS: AMORPHOUS SEDIMENT,UR FEW AMOR URATES /LPF; BACTERIA,URINE TRACE /HPF; SQUAMOUS EPITHELIAL CELL,UR 25-50 /HPF; WBC,URINE 0-2 /HPF
[2018-01-03 15:32] LABS: EOSINOPHILS % (MANUAL) 1 %; LYMPHOCYTES % (MANUAL) 36 %; MONOCYTES % (MANUAL) 5 %; NEUTROPHILS % (MANUAL) 58 %
--- OUTSIDE RECORDS SUMMARY | 2018-01-03 15:41 | XMS REPORT | Clinical Summary ---
Author Author [facility] Organization [facility] Address Unknown Phone Unavailable Care Team Providers Care Brush Maker Name Role Phone Unverified, Unverified Md PCP Unavailable Source Comments Some departments are not documenting in the electronic medical record. If you do not see the information that you expected, contact Release of Information in the Health Information Management department at [phone] for further assistance in locating additional records.[facility] Allergies Not on File Current Medications Not [...] SCREENING 08/23/1991 TETANUS VACCINE 1993 INFLUENZA VACCINE 10/22/2017 Results Not on filefrom Last 3 Months
--- NOTE | 2018-01-03 15:42 | ED GI ---
General Chief Complaint: Abdominal/GI Problems Stated Complaint: VOMITING Nursing Triage Note: TO ROOM WITH C/O VOMITING AND DIARRHEA. ONSET YESTERDAY . REPORTS WAS HAVNG VOMITING AND DIARRHEA REPORTS PASSED OUT FROM THE VOMITING AND DIARRHEA. DID EAT CHINESE LAST NIGHT. Sepsis Screen: No Definite Risk History of Present Illness Date Seen by Provider: Jan 03, 2018 Time Seen by Provider: 14:00 Initial Comments 42-year-old female presents for nausea, vomiting, diarrhea and syncopal episode. She reports that the symptoms began at 0500 this morning. She' s had more diarrhea than vomiting, too numerous to count. She took a warm bath and got up to toilet, when she had a syncopal event. She does not remember hitting her head. She's had no oral intake today. No pre-arrival treatment for diarrhea or vomiting. She had [place] food yesterday evening, other family members have nausea but none with vomiting or diarrhea. She has a history of IBS. She had some mild nausea and fever approximately 3 or 4 days ago. Timing/Duration: 4-6 Hours Severity/Quality: Moderate Location: Generalized Abdomen Radiation: No Radiation Associated Symptoms: No Back Pain, No Chest Pain, No Diaphoresis, No Fever/ Chills; Fatigue; No Headache, No Heartburn; Nausea/Vomiting; No Rash, No Shortness of Air, No Swelling/Mass in Abdomen; Syncope, Weakness Allergies and Home Medications Allergies Coded Allergies: morphine (Unverified Allergy, Severe, VOMITING, 12/13/10) latex (Unverified Allergy, Mild, RASH, 12/13/10) ondansetron (Unverified Allergy, Mild, Rash at IV site, 02/25/06) iron (Verified Allergy, Unknown, 02/23/06) metoclopramide (Verified Allergy, Unknown, 02/23/06) Home Medications Albuterol Sulfate 1 Puff Puff, 2 PUFF IH Q4H PRN for SHORTNESS OF BREATH, ( Reported) 1 PUFF = 90 MCG Cyclobenzaprine HCl 10 Mg Tablet, 10 MG PO TID PRN for MUSCLE SPASMS, (Reported) Diphenoxylate HCl/Atropine 1 Each Tablet, 1 EACH PO Q4H Prescribed by: SHAILESH BROCK on 01/03/18 7094 Ibuprofen 600 Mg Tablet, 600 MG PO Q6H PRN for PAIN-MILD, (Reported) Promethazine HCl 25 Mg Tablet, 25 MG PO Q6H PRN for NAUSEA/VOMITING Prescribed by: SHAILESH BROCK on 01/03/18 [id number] Patient Home Medication List Home Medication List Reviewed: Yes Review of Systems Review of Systems Constitutional: no symptoms reported, see HPI Gastrointestinal: See HPI, Abdominal Pain; Denies Blood Streaked Stools, Denies Constipated; Diarrhea; Denies Difficulty Swallowing; Nausea, Poor Appetite, Poor Fluid Intake; Denies Rectal Bleeding; Vomiting All Other Systems Reviewed Negative Unless Noted: Yes Past Kibyprj-Fhoxcm-Vevcgh Hx Past Med/Social Hx: Reviewed Nursing Past Med/Soc Hx Patient Social History Alcohol Use: Denies Use Recreational Drug Use: No Smoking Status: Never a Smoker Recent Foreign Travel: No Contact w/Someone Who Travel: No Recent Infectious Disease Expo: No Recent Hopitalizations: No Immunizations Up To Date Date of Influenza Vaccine: Jan 02, 2012 Seasonal Allergies Seasonal Allergies: Yes Past Medical History Surgeries: Yes Appendectomy, Gallbladder, Orthopedic, Renal Respiratory: Yes Asthma Cardiac: No (ABNORMAL STRESS TEST AND CARDIAC CATH 2014--NO INTERVENTION/MILD DISEASE) Neurological: No Reproductive Disorders: Yes Female Reproductive Disorders: Ovarian Cyst Sexually Transmitted Disease: No Genitourinary: Yes Kidney Stones Gastrointestinal: Yes ( GABI AND APPY) Colitis, Esophagitis, Gall Bladder Disease Musculoskeletal: Yes Fractures Endocrine: Yes (HYPERGLYCEMIA IN PAST) HEENT: No Cancer: No Psychosocial: No Integumentary: No Blood Disorders: No Adverse Reaction/Blood Tranf: No Family Medical History AORTIC VALVE REPLACEMENT 19 FATHER G8 SISTER FH: congestive heart failure G8 SISTER Physical Exam Vital Signs Vital Signs - First Documented 01/03/18 13:57 Temp 98.1 Pulse 114 Resp 18 B/P (MAP) 137/86 (103) Pulse Ox 98 Capillary Refill : Less Than 3 Seconds Height/Weight/BMI Height: 5'3.00" Weight: 206lbs. 0.0oz. [id number]; 38.1 BMI Method:Stated General Appearance: WD/WN, no apparent distress HEENT: PERRL/EOMI, normal ENT inspection, pharynx normal Neck: non-tender, full range of motion, supple, normal inspection Respiratory: chest non-tender, lungs clear, normal breath sounds Cardiovascular: normal peripheral pulses, regular rate, rhythm Gastrointestinal: soft, abnormal bowel sounds (hypoactive on the right and hyperactive on the left); No distended, No guarding, No rebound; tenderness ( general lysed secondary to retching) Extremities: normal range of motion, non-tender, normal inspection, no pedal edema, normal capillary refill Neurologic/Psychiatric: no motor/sensory deficits, alert, normal mood/affect, oriented x 3 Skin: normal color, warm/dry, other (skin turgor less than 2 seconds) Lymphatic: no adenopathy Progress/Results/Core Measures Results/Orders Lab Results Laboratory Tests Test 01/03/18 14:06 01/03/18 14:34 Range/Units White Blood Count 15.3 H 4.3-11.0 10^3/uL Red Blood Count 5.32 4.35-5.85 10^6/uL Hemoglobin 14.1 11.5-16.0 G/DL Hematocrit 43 35-52 % Mean Corpuscular Volume 80 80-99 FL Mean Corpuscular Hemoglobin 27 25-34 PG Mean Corpuscular Hemoglobin Concent 33 32-36 G/DL Red Cell Distribution Width 14.9 H 10.0-14.5 % Platelet Count 365 130-400 10^3/uL Mean Platelet Volume 10.3 7.4-10.4 FL Neutrophils (%) (Auto) 76 H 42-75 % Lymphocytes (%) (Auto) 16 12-44 % Monocytes (%) (Auto) 6 0-12 % Eosinophils (%) (Auto) 2 0-10 % Basophils (%) (Auto) 0 0-10 % Neutrophils # (Auto) 11.5 H 1.8-7.8 X 10^3 Lymphocytes # (Auto) 2.5 1.0-4.0 X 10^3 Monocytes # (Auto) 1.0 0.0-1.0 X 10^3 Eosinophils # (Auto) 0.2 0.0-0.3 10^3/uL Basophils # (Auto) 0.1 0.0-0.1 10^3/uL Neutrophils % (Manual) 58 % Lymphocytes % (Manual) 36 % Monocytes % (Manual) 5 % Eosinophils % (Manual) 1 % Sodium Level 139 135-145 MMOL/L Potassium Level 4.1 3.6-5.0 MMOL/L Chloride Level 106 98-107 MMOL/L Carbon Dioxide Level 19 L 21-32 MMOL/L Anion Gap 14 5-14 MMOL/L Blood Urea Nitrogen 21 H 7-18 MG/DL Creatinine 1.04 0.60-1.30 MG/DL Estimat Glomerular Filtration Rate 58 BUN/Creatinine Ratio 20 Glucose Level 129 H 70-105 MG/DL Calcium Level 10.5 H 8.5-10.1 MG/DL Corrected Calcium 8.5-10.1 MG/DL Total Bilirubin 0.4 0.1-1.0 MG/DL Aspartate Amino Transf (AST/SGOT) 13 5-34 U/L Alanine Aminotransferase (ALT/SGPT) 17 0-55 U/L Alkaline Phosphatase 79 40-136 U/L Total Protein 8.5 H 6.4-8.2 GM/DL Albumin 4.9 H 3.2-4.5 GM/DL Urine Color YELLOW Urine Clarity SLIGHTLY CLOUDY Urine pH 5 5-9 Urine Specific [place] 1.025 H 1.016-1.022 Urine Protein 2+ H NEGATIVE Urine Glucose (UA) NEGATIVE NEGATIVE Urine Ketones NEGATIVE NEGATIVE Urine Nitrite NEGATIVE NEGATIVE Urine Bilirubin NEGATIVE NEGATIVE Urine Urobilinogen NORMAL NORMAL MG/DL Urine Leukocyte Esterase 1+ H NEGATIVE Urine RBC (Auto) NEGATIVE NEGATIVE Urine RBC NONE /HPF Urine WBC 0-2 /HPF Urine Squamous Epithelial Cells 25-50 H /HPF Urine Crystals PRESENT H /LPF Urine Amorphous Sediment FEW GUS URATES H /LPF Urine Bacteria TRACE /HPF Urine Casts NONE /LPF Urine Mucus MODERATE H /LPF Urine Culture Indicated NO My Orders Orders - SHAILESH BROCK Saline Lock/Iv-Start (01/03/18 14:12) Ns Iv 1000 Ml (Sodium Chloride 0.9%) (01/03/18 14:12) Ondansetron Injection (Zofran Injectio (01/03/18 14:15) Cbc With Automated Diff (01/03/18 14:19) Comprehensive Metabolic Panel (01/03/18 14:19) Ua Culture If Indicated (01/03/18 14:19) Stool Culture (01/03/18 14:19) Promethazine Injection (Phenergan Injec (01/03/18 14:19) Manual Differential (01/03/18 14:06) Vital Signs/I&O 01/03/18 01/03/18 13:57 16:01 Temp 98.1 98.1 Pulse 114 114 Resp 18 18 B/P (MAP) 137/86 (103) 137/86 (103) Pulse Ox 98 98 Blood Pressure Mean: 103 Progress Progress Note : Time: 14:00 Progress Note Patient seen and evaluated, slightly tachycardic at 114, ordered and Zofran 4 mg IV, normal saline 1 L IV. Will continue to monitor. 1445 patient resting with eyes closed in no apparent discomfort. 1515 patient reports to be feeling better she has urinated one time, no further nausea vomiting or diarrhea. Pulse 88. Labs essentially normal. 1545 fluids have infused per IV, discharge instructions reviewed with the patient, as well as return precautions. All questions answered. Departure Impression Primary Impression: Syncopal episodes Qualified Codes: R55 - Syncope and collapse Additional Impression: Nausea vomiting and diarrhea Disposition: HOME, SELF-CARE Condition: Improved (ERASED) Departure-Patient Inst. Decision time for Depature: 15:40 Referrals: LEANDRO WELCH MD (PCP/Family) Primary Care Physician Patient Instructions: Diarrhea in Adolescents and Adults, Nausea and Vomiting, Adult (DC) Add. Discharge Instructions: Clear liquid diet for the next 4-6 hours. May advance to bland diet from that and then diet as tolerated. Use the Phenergan every 6 hours as needed for nausea and vomiting. Use the Lomotil every 4-6 hours as needed for diarrhea. Stool culture results will be called to you. Follow-up with your primary care provider in 2-3 days if symptoms are not improving or worsen. You may take Tylenol 650 mg alternating with ibuprofen 600 mg for fever or pain. Return to emergency department for continued nausea, vomiting, diarrhea, syncopal episodes, abdominal pain, fever greater than 101 not relieved by Tylenol and ibuprofen, or new problems. All discharge instructions reviewed with patient and/or family. Voiced understanding. Scripts Diphenoxylate HCl/Atropine (Lomotil 2.5-0.025 mg Tablet) 1 Each Tablet 1 EACH PO Q4H for Diarrhea, #12 TAB 0 Refills Prov: SHAILESH BROCK 01/03/18 Promethazine HCl (Promethazine Tablet) 25 Mg Tablet 25 MG PO Q6H PRN for NAUSEA/VOMITING, #12 TAB 0 Refills Prov: SHAILESH BROCK 01/03/18 Copy Copies To 1: LEANDRO WELCH MD, AMY ARNP Jan 03, 2018 15:42
--- OUTSIDE RECORDS SUMMARY | 2018-01-03 15:42 | XMS REPORT | Continuity of Care Document ---
Author Author [facility] Organization [facility] Address Unknown Phone Unavailable Allergies Active Description Code Type Severity Reaction Onset Reported/Identified Relationship to Patient Clinical Status Yes iron [id number] Drug Allergy Unknown N/A 02/23/2006 Yes metoclopramide [id number] Drug Allergy Unknown N/A 02/23/2006 Yes ondansetron [id number] Drug Allergy Mild Rash at IV site 02/25/2006 Yes morphine S912141711 Drug Allergy Severe VOMITING 12/13/2010 Yes latex P484895015 Drug Allergy Mild RASH 12/13/2010 Yes morphine [...] BRITO MD Ot 414.01 CORONARY ATHEROSCLEROSIS OF [place] CORON 07/27/2014 SCOT BRITO MD Ot 785.0 TACHYCARDIA NOS 07/27/2014 SCOT BRITO MD Ot 785.1 PALPITATIONS 07/27/2014 SCOT BRITO MD Ot 786.50 CHEST PAIN NOS 07/27/2014 SCOT BRITO MD Ot 794.30 ABN CARDIOVASC STUDY NOS 07/27/2014 SCOT BRITO MD Ot V58.69 [facility] MED,LT,CURRENT USE 08/12/2014 MAYITO REEVES [...] NAUSEA 08/29/2017 JACINTO SARAI BERRIOS Ot 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 08/29/2017 SARAI [...] NAUSEA 09/01/2017 SARAI CASEY DO Ot Z79.52 JAIL (CURRENT) USE OF SYSTEMIC STER 09/01/2017 SARAI [...] Z90.89 ACQUIRED ABSENCE OF OTHER ORGANS 09/02/2017 JULEE YOUNG MD Ot N20.1 CALCULUS OF URETER 09/16/2017 JULEE YOUNG MD Ot N20.1 CALCULUS OF URETER 09/16/2017 JULEE YOUNG MD Ot N20.1 CALCULUS OF URETER 10/05/2017 LEANDRO WELCH MD Ot N13.2 HYDRONEPHROSIS WITH RENAL AND URETERAL C 10/07/2017 LEANDRO WELCH MD Ot N13.2 HYDRONEPHROSIS WITH RENAL AND URETERAL C 11/21/2017 JULEE YOUNG MD Ot N20.0 CALCULUS OF KIDNEY 11/24/2017 LEANDRO WELCH MD Ot 611.79 SYMPTOMS IN BREAST NEC 11/24/2017 Ot 789.00 ABDOMINAL PAIN, UNSPECIFIED SITE 11/24/2017 SCOT BRITO MD Ot 327.23 OBSTRUCTIVE SLEEP APNEA (ADULT) (PEDIATR 11/24/2017 SCOT BRITO MD Ot 427.89 CARDIAC DYSRHYTHMIAS NEC 11/24/2017 SCOT BRITO MD Ot 785.1 PALPITATIONS 11/24/2017 SCOT BRITO MD Ot 786.59 CHEST PAIN NEC 11/24/2017 MAYITO REEVES DO Ot 327.23 OBSTRUCTIVE SLEEP APNEA (ADULT) (PEDIATR 11/24/2017 MAYITO REEVES DO Ot 427.89 CARDIAC DYSRHYTHMIAS NEC 11/24/2017 MAYITO REEVES DO Ot 785.1 PALPITATIONS 11/24/2017 MAYITO REEVES DO Ot 786.50 CHEST PAIN NOS 11/24/2017 MAYITO REEVES DO Ot 785.0 TACHYCARDIA NOS 11/24/2017 MAYITO REEVES DO Ot 785.1 PALPITATIONS 11/24/2017 ELIO MUNIZ, JOSE G [place] Ot V72.84 EXAM PRE-OPERATIVE NOS 11/24/2017 LEANDRO WELCH MD, Ot Z12.31 ENCNTR SCREEN MAMMOGRAM FOR MALIGNANT NE 11/24/2017 LEANDRO WELCH MD, Ot N63 UNSPECIFIED LUMP IN BREAST 11/24/2017 LEANDRO WELCH MD, Ot D24.2 BENIGN NEOPLASM OF LEFT BREAST 11/24/2017 MAYITO REEVES DO Ot R73.03 PREDIABETES 11/24/2017 LEANDRO WELCH MD, Ot Z12.31 ENCNTR SCREEN MAMMOGRAM FOR MALIGNANT NE 11/24/2017 MAYITO REEVES DO, Ot N83.8 OTH NONINFLAMMATORY DISORD OF OVARY, FAL 11/24/2017 JULEE YOUNG MD Ot N20.1 CALCULUS OF URETER 11/24/2017 JULEE YOUNG MD, Ot N20.1 CALCULUS OF URETER 11/24/2017 JULEE YOUNG MD, Ot N20.0 CALCULUS OF KIDNEY Procedures Code Description Performed By Performed On ANES INJECT PERIPH NERVE Domenic MUNIZ, [facility] 04/06/2012 77.77 EXC TIB/FIB FOR GRAFT Domenic MUNIZ, Mehran Plummer 04/06/2012 81.11 ANKLE FUSION Domenic MUNIZ, [facility] 04/06/2012 [id number] EXTIRPATION OF MATTER FROM LEFT URETER, 10/07/2017 [...] culture - 12/27/15 20:50 Bacterial throat culture [id number] NR FREE TEXT EXTERNAL PLUS NORMAL KATIE NRG [...] culture - 10/05/17 18:34 Bacterial urine culture [id number] NRG COLONY COUNT . NRG FTX;REPORTABLE 30,000 CFU/ML NRG FREE TEXT ENTRY 2 RML SUSCEPTIBILITY PRINTED [address] [facility] Sensitivity Panel - 10/05/17 18:34 Gentamicin susceptibility [...] human chorionic gonadotropin (hCG) measurement NEGATIVE NEGATIVE Measurement of weight of kidney stone - 10/07/17 13:00 Measurement of weight of kidney stone 30 % NRG Kidney stone composition determination See Note NRG Count of number of calculi 1 NRG Size of stone 5 to 9 NRG CD3+CD4+ (T4 helper) cells/100 cells in blood - 11/17/17 09:00 Timed urine calcium measurement (mass/volume) 100 % < 250 Urine oxalate detection 31 < 45 Urine uric acid measurement (mass/volume) 402 % < 700 Urine citrate measurement (mass/volume) 561 % > 320 Urine pH measurement 5.8 5.5-7.0 24 hour urine specimen volume measurement 0.57 % > 2.00 Sodium urate/total calculus mass ratio by infrared spectroscopy 69 % < 200 Sulfites [presence] in urine by test strip 9 < 30 Urine phosphate measurement (mass/volume) 675 % < 1100 Urine magnesium measurement (mass/volume) 55 % > 60 Urine calcium oxalate measurement 3.75 < 2.00 Urine calcium phosphate crystals detection by computer assisted method 1.75 < 2.00 24 hour urine sodium urate (saturation fraction) 5.08 < 2.00 Triple phosphate crystals detection in urine sediment by light microscopy 0.81 < 75.00 24 hour urine uric acid (saturation fraction) 4.07 < 2.00 Urine ammonium measurement 22 % 14-62 Urine potassium measurement 41 % 19-135 24 hour urine creatinine measurement (mass/time) 1316 % 600-1800 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 Visit Date/Time Discharge Status Pt. Type Provider Facility Loc./Unit Complaint [id number] 04/06/2012 06:07:00 04/08/2012 13:14:00 DIS Inpatient Mehran Sheth MD [facility] on [place] F5SE [id number] 12/22/2017 00:52:00 12/22/2017 23:59:59 CLS Preadmit JULEE YOUNG MD [facility] LAB N20.0 [id number] 11/14/2017 13:46:00 11/21/2017 00:01:00 DIS Outpatient JULEE YOUNG MD [facility] LAB N20.0 [id number] 10/05/2017 18:25:00 10/07/2017 14:35:00 DIS Inpatient LEANDRO WELCH MD [facility] 4TH L URETERAL STONE, HYDRONEPHROSIS [id number] 09/15/2017 12:36:00 09/15/2017 23:59:59 CLS Outpatient JULEE YOUNG MD [facility] RAD STONES [id number] 09/01/2017 13:33:00 09/01/2017 23:59:59 CLS Outpatient JULEE YOUNG MD [facility] RAD STONES [id number] 08/29/2017 04:19:00 08/29/2017 07:06:00 DIS Emergency JACINTO SARAI BERRIOS [facility] ER POSS KIDNEY STONE [id number] 06/25/2017 10:39:00 06/25/2017 23:59:59 CLS Outpatient MAYITO REEVES DO [facility] RAD RLQ PAIN [id number] 03/18/2017 09:32:00 03/18/2017 23:59:59 CLS Outpatient LEANDRO WELCH MD [facility] RAD SCREENING MAMMO [id number] 06/06/2016 09:22:00 06/06/2016 23:59:59 CLS Outpatient MAYITO REEVES DO [facility] LAB PRE-DIABETES [id number] 04/08/2016 09:09:00 04/08/2016 23:59:59 CLS Outpatient LEANDRO WELCH MD [facility] RAD LT BREAST LUMP [id number] 04/01/2016 07:50:00 04/01/2016 23:59:59 CLS Outpatient LEANDRO WELCH MD [facility] RAD LUMP LEFT UPPER OUTER BREAST [id number] 03/22/2016 11:15:00 03/22/2016 23:59:59 CLS Outpatient LEANDRO WELCH MD [facility] RAD SCREENING [id number] 12/27/2015 20:00:00 12/27/2015 22:47:00 DIS Emergency JACINTO BERRIOS SARAI Buchanan [facility] ER STREP THROAT [id number] 12/12/2014 08:08:00 12/12/2014 11:07:00 DIS Outpatient JOSE G BALLARD MD [facility] SDC REFLUX; FAMILY HX COLON CANCER; BLOOD IN STOOLS [id number] 12/08/2014 06:03:00 12/08/2014 23:59:59 CLS Outpatient JOSE G BALLARD MD [facility] PREOP REFLUX; FAMILY HX COLON CANCER;BLOOD IN STOOLS [id number] 08/19/2014 08:00:00 08/19/2014 23:59:59 CLS Preadmit MAYITO REEVES DO [facility] CARD TACHYCARDIA, HYPOTENSION [id number] 05/20/2014 07:46:00 08/18/2014 00:01:00 DIS Outpatient MAYITO REEVES DO [facility] CARD TACHYCARDIA, HYPOTENSION [id number] 07/27/2014 06:48:00 07/27/2014 14:20:00 DIS Outpatient SCOT BRITO MD [facility] CATH ABNORMAL STRESS, CP,SOB, PALPITATIONS,TACHYCARDIA [id number] 07/20/2014 08:16:00 07/20/2014 23:59:59 CLS Outpatient SCOT BRITO MD [facility] CARD CP,PALPITATIONS,KENYA [id number] 07/14/2014 06:45:00 07/14/2014 23:59:59 CLS Outpatient MAYITO REEVES DO [facility] CARD SEE ORDER-CP/786.50 [id number] 03/04/2014 20:30:00 03/05/2014 06:45:00 DIS Outpatient MAYITO REEVES DO [facility] SLEEP KENYA [id number] 03/02/2014 14:21:00 03/02/2014 23:59:59 CLS Outpatient LEANDRO WELCH MD [facility] RAD LEFT BREAST DIMPLING [id number] 05/25/2014 14:27:00 Document Registration [id number] 06/08/2012 07:31:00 Document Registration [id number] 06/03/2012 07:47:00 Document Registration [id number] 02/24/2012 07:45:00 Document Registration [id number] 09/13/2011 09:41:00 Document Registration [id number] 08/23/2011 08:20:00 Document Registration [id number] 07/23/2011 15:13:00 Document Registration [id number] 06/17/2011 11:55:00 Document Registration [id number] 03/26/2011 16:31:00 Document Registration [id number] 03/06/2011 17:00:00 Document Registration [id number] 01/25/2011 08:42:00 Document Registration [id number] 12/20/2010 05:36:00 Document Registration [id number] 12/18/2010 09:09:00 Document Registration [id number] 12/13/2010 08:45:00 Document Registration
[2018-01-03] MEDS ORDERED: DIPH1TAB PO (15:54)
[2018-01-03] MEDS ORDERED: PROM25TA14 PO (15:54)
[2018-01-03 16:01] VITALS: BP 137/86
== END 2018-01-03 16:13 | disposition home or self-care (01) ==
LOC: EDUNIT# 13:51 → ER 13:52
DX: R11.2 Nausea with vomiting, unspecified (principal); R19.7 Diarrhea, unspecified; R55 Syncope and collapse; J45.909 Unspecified asthma, uncomplicated; Z82.49 Family history of ischemic heart disease and other diseases of the circulatory system; Z90.49 Acquired absence of other specified parts of digestive tract; Z87.442 Personal history of urinary calculi; Z88.5 Allergy status to narcotic agent; Z91.040 Latex allergy status; Z88.8 Allergy status to other drugs, medicaments and biological substances; Z79.51 Long term (current) use of inhaled steroids; Z87.19 Personal history of other diseases of the digestive system; Z90.89 Acquired absence of other organs
CPT/HCPCS: 80053; 81000; 85007; 85027; 87045; 87046

== ENCOUNTER → 2018-08-31 | Outpatient (CLI) | payer OTHER ==
[~2018-08-31] MED LIST changes: +DIPH1TAB PO; +PROM25TA14 PO
--- NOTE | 2018-09-01 12:43 | Diagnostic Imaging Report ---
EXAMINATION: Digital mammogram bilateral screening with 3D tomosynthesis and CAD. INDICATION: Screening. COMPARISON: This study is compared to the prior exams of 03/18/2017, 03/22/2016, and 03/02/2014. PERSONAL HISTORY: At this time, there are no current complaints. FINDINGS: The fibroglandular tissue in both breasts is heterogeneously dense. This does limit the sensitivity of this exam. The small nodular density and the stereotactic clip in the midportion of the left breast seen previously are again evident and no different. In the upper-outer aspect of the right breast approximately 9 cm from the nipple, there is a benign-appearing 9 mm nodular density. This finding was not clearly evident on the prior study. I would recommend that ultrasound be performed for further study. There is no primary or secondary sign of malignancy noted otherwise. IMPRESSION: Ultrasound would be recommended for further evaluation of the benign-appearing nodular density in the upper-outer aspect of the right breast. ACR BI-RADS Category 0: Incomplete. (Needs additional imaging evaluation). Result letter will be mailed to the patient. Note: At least 10% of breast cancer is not imaged by mammography. Dictated by: Dictated on workstation # [id number]
== END ==
LOC: RAD 14:58
PROVIDERS: ATTEND Family Medicine
DX: Z12.31 Encounter for screening mammogram for malignant neoplasm of breast (principal); Z98.890 Other specified postprocedural states
CPT/HCPCS: 77067

== ENCOUNTER → 2018-09-10 | Outpatient (CLI) | payer OTHER ==
--- NOTE | 2018-09-10 20:40 | Diagnostic Imaging Report ---
INDICATION: Right breast density. Study was performed for further evaluation. COMPARISON: Correlation is made with the screening study from 08/31/2018. EXAMINATION: Sonographic interrogation of the upper outer right breast was performed. FINDINGS: There is a cyst at the 10 o'clock location, 5 cm from the nipple. This measures 11 mm by 7 mm x 7 mm. No internal vascularity is seen. There is posterior acoustic enhancement. IMPRESSION: Simple cyst at the 10 o'clock location of the right breast corresponding to the mammographic density. Patient may return to routine annual screening mammography. ACR BI-RADS Category 2: Benign findings. Result letter will be mailed to the patient. Note: At least 10% of breast cancer is not imaged by mammography. Dictated by: Dictated on workstation # [id number]
== END ==
LOC: RAD 07:57
PROVIDERS: ATTEND Family Medicine
DX: N60.01 Solitary cyst of right breast (principal)

== ENCOUNTER 2019-02-05 08:46 | Outpatient (RCR) | payer OTHER ==
[~2019-02-05 08:46] MED LIST changes: -TAMS0.4C98 PO; +TMSL.4C PO
--- NOTE | 2019-02-05 09:41 | Diagnostic Imaging Report ---
INDICATION: Pain. 2 views were obtained. FINDINGS: Bowel gas pattern is nonspecific. The previously seen linear calcification of the left hemipelvis is no longer appreciated. There are no other abnormal calcifications. Osseous structures are unremarkable. IMPRESSION: The previously seen calcification of the left hemipelvis is no longer appreciated. Nonspecific bowel gas pattern. Dictated by: Dictated on workstation # [id number]
== END 2019-05-06 | disposition home or self-care (01) ==
LOC: RAD 08:46
PROVIDERS: ATTEND Urology
DX: Z87.442 Personal history of urinary calculi (principal)
CPT/HCPCS: 36415; 74018; 82140; 82340; 82507; 82570; 83735; 83945; 83986; 84105; 84133; 84300; 84392; 84560

== ENCOUNTER → 2019-02-05 | Outpatient (CLI) | payer OTHER ==
[2019-02-05 09:09] LABS: BASOPHILS % (AUTO) 0 % (0-10); EOSINOPHILS # (AUTO) 0.2 10^3/uL (0.0-0.3); EOSINOPHILS % (AUTO) 3 % (0-10); HEMATOCRIT 44 % (35-52); HEMOGLOBIN 14.2 G/DL (11.5-16.0); LYMPHOCYTES # (AUTO) 1.8 X 10^3 (1.0-4.0); LYMPHOCYTES % (AUTO) 21 % (12-44); MEAN CORPUSCULAR HEMOGLOBIN 28 PG (25-34); MEAN CORPUSCULAR HGB CONC 32 G/DL (32-36); MEAN CORPUSCULAR VOLUME 86 FL (80-99); MEAN PLATELET VOLUME 11.1 FL (7.4-10.4); MONOCYTES # (AUTO) 0.6 X 10^3 (0.0-1.0); MONOCYTES % (AUTO) 7 % (0-12); NEUTROPHILS # (AUTO) 5.7 X 10^3 (1.8-7.8); NEUTROPHILS % (AUTO) 69 % (42-75); PLATELET COUNT 351 10^3/uL (130-400); RED CELL DISTRIBUTION WIDTH 14.4 % (10.0-14.5); WHITE BLOOD COUNT 8.3 10^3/uL (4.3-11.0)
[2019-02-05 09:36] LABS: ALANINE AMINOTRANSFERASE 13 U/L (0-55); ALBUMIN 4.4 GM/DL (3.2-4.5); ALKALINE PHOSPHATASE 60 U/L (40-136); BILIRUBIN,TOTAL 0.2 MG/DL (0.1-1.0); BUN/CREATININE RATIO 12; CALCIUM 9.3 MG/DL (8.5-10.1); CARBON DIOXIDE 19 MMOL/L (21-32); CHLORIDE 106 MMOL/L (98-107); CHOLESTEROL 197 MG/DL (< 200); CREATININE SERUM 0.89 MG/DL (0.60-1.30); GFR ESTIMATED > 60; GLUCOSE 89 MG/DL (70-105); HDL CHOLESTEROL 58 MG/DL (40-60); POTASSIUM 5.9 MMOL/L (3.6-5.0); SODIUM 138 MMOL/L (135-145); TOTAL PROTEIN 8.7 GM/DL (6.4-8.2); TRIGLYCERIDES 83 MG/DL (<150); VLDL CHOLESTEROL 17 MG/DL (5-40)
== END ==
LOC: LAB 08:42
PROVIDERS: ATTEND Internal Medicine
DX: I10 Essential (primary) hypertension (principal); G47.33 Obstructive sleep apnea (adult) (pediatric); M19.071 Primary osteoarthritis, right ankle and foot; E66.9 Obesity, unspecified; R73.03 Prediabetes; Z68.33 Body mass index [BMI] 33.0-33.9, adult
CPT/HCPCS: 36415; 80053; 80061; 83036; 84443; 85025

== ENCOUNTER → 2019-02-11 | Outpatient (CLI) | payer OTHER ==
[~2019-02-11] MED LIST changes: +TAMS0.4C98 PO; -TMSL.4C PO
[2019-02-11 09:29] LABS: POTASSIUM 3.6 MMOL/L (3.6-5.0)
[2019-02-11 09:56] LABS: FREE T4 (FREE THYROXINE) 0.99 NG/DL (0.70-1.48)
== END ==
LOC: LAB 08:58
PROVIDERS: ATTEND Internal Medicine
DX: R94.6 Abnormal results of thyroid function studies (principal)
CPT/HCPCS: 36415; 84132; 84439; 84480

== ENCOUNTER 2019-09-10 13:25 | Observation (INO) | payer OTHER ==
[2019-09-10] VITALS (10 sets, daily range): BP systolic 101–150; BP diastolic 56–72
[~2019-09-10] VITALS: Ht 162.6 cm; Wt 90.0 kg
[~2019-09-10 13:25] MED LIST changes: +HYDR-34 PO; -TAMS0.4C98 PO; +TMSL.4C PO
--- NOTE | 2019-09-10 13:45 | NUR ---
1340 PER POVIDER VERBAL ORDER X1 NITRO ADM. INITIAL BP 136/91. PAIN 4/10 1345 BP 114/73 PAIN 2/10
[2019-09-10] MEDS ORDERED: FAMOTIDINE 20 MG (PEPCID) TABLET PO STA (13:48)
[2019-09-10] MEDS ORDERED: ANTACID SUSP 30 ML UDC (MYLANTA) PO ONE (14:00)
[2019-09-10] MEDS ORDERED: LIDOCAINE 2% VISCOUS 15 ML UDC PO ONE (14:00)
[2019-09-10] MEDS ORDERED: ASPIRIN 81 MG CHEW (CHILDREN'S ASA) PO ONE (14:00)
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
[2019-09-10 14:15] LABS: BASOPHILS % (AUTO) 0 % (0-10); EOSINOPHILS # (AUTO) 0.1 10^3/uL (0.0-0.3); EOSINOPHILS % (AUTO) 1 % (0-10); HEMATOCRIT 39 % (35-52); LYMPHOCYTES # (AUTO) 1.7 X 10^3 (1.0-4.0); LYMPHOCYTES % (AUTO) 17 % (12-44); MEAN CORPUSCULAR HEMOGLOBIN 28 PG (25-34); MEAN CORPUSCULAR HGB CONC 33 G/DL (32-36); MEAN CORPUSCULAR VOLUME 85 FL (80-99); MEAN PLATELET VOLUME 10.3 FL (7.4-10.4); MONOCYTES # (AUTO) 0.5 X 10^3 (0.0-1.0); MONOCYTES % (AUTO) 5 % (0-12); NEUTROPHILS # (AUTO) 7.6 X 10^3 (1.8-7.8); NEUTROPHILS % (AUTO) 77 % (42-75); PLATELET COUNT 282 10^3/uL (130-400); RED CELL DISTRIBUTION WIDTH 14.1 % (10.0-14.5); WHITE BLOOD COUNT 9.9 10^3/uL (4.3-11.0)
[2019-09-10 14:25] LABS: ALBUMIN 4.5 GM/DL (3.2-4.5); CHLORIDE 101 MMOL/L (98-107); POTASSIUM 3.6 MMOL/L (3.6-5.0); SODIUM 137 MMOL/L (135-145)
[2019-09-10 14:27] LABS: CALCIUM 9.5 MG/DL (8.5-10.1)
[2019-09-10 14:28] LABS: GLUCOSE 100 MG/DL (70-105); TOTAL PROTEIN 7.9 GM/DL (6.4-8.2)
[2019-09-10 14:29] LABS: CARBON DIOXIDE 25 MMOL/L (21-32); INR 0.9 (0.8-1.4); PROTHROMBIN TIME PATIENT 12.9 SEC (12.2-14.7)
[2019-09-10 14:30] LABS: BILIRUBIN,TOTAL 0.4 MG/DL (0.1-1.0)
[2019-09-10 14:31] LABS: ALKALINE PHOSPHATASE 73 U/L (40-136); CREATININE SERUM 0.95 MG/DL (0.60-1.30); GFR ESTIMATED > 60
--- NOTE | 2019-09-10 14:31 | Diagnostic Imaging Report ---
PATIENT HISTORY: Chest pain. TECHNIQUE: Single frontal view of the chest. COMPARISON: 08/29/2017 FINDINGS: The lung volumes are normal. No focal consolidation is seen. No large pleural effusion or pneumothorax is seen. The cardiomediastinal silhouette is normal in size and contour. No acute osseous abnormality is seen. IMPRESSION: No acute pulmonary abnormality seen. Dictated by: Dictated on workstation # [id number]
[2019-09-10 14:32] LABS: BUN/CREATININE RATIO 13
[2019-09-10 14:34] LABS: ALANINE AMINOTRANSFERASE 13 U/L (0-55)
[2019-09-10 14:35] LABS: MAGNESIUM 1.9 MG/DL (1.6-2.4)
[2019-09-10 14:36] LABS: LIPASE 26 U/L (8-78)
--- OUTSIDE RECORDS SUMMARY | 2019-09-10 15:07 | XMS REPORT ---
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 [employer] [facility] eTect Address [address] [place] [address] Care Team Providers Care Converting Operator Name Role Phone REBEKAH MUNIZ, LEANDRO Thurman Unavailable Unavailable MAYITO REEVES DO Unavailable Unavailable Mehran Sheth MD Unavailable Unavailable LEANDRO WELCH MD Unavailable Unavailable HECTOR MUNIZ, JULEE Vargas Unavailable Unavailable MAYITO REEVES DO Unavailable Unavailable Unavailable Unavailable Unavailable Unavailable Unavailable Unavailable Allergies Normalized Allergy Reported Date of Reaction(s) Care Provider Facility Allergy Type classification allergen Allergy Onset Drug Allergy Iron iron 02-23-2006 - no information no na me no information (20 sources.) Substance Latex Latex 12-13-2010 - RASH no name no i nformation Allergy (20 sources.) DA (2 Unclassified METAL no information Mehran Sheth , Not Available sources.) (94545) Drug Allergy DOPamine metoclopramide 02-23-2006 - no information no name no information (20 sources.) Antagonists Translations: [ REGLAN] Drug Allergy Opioid morphine 12-13-2010 - VOMITING no name n o information (20 sources.) Agonists Drug Allergy Ondansetron ondansetron 02-25-2006 - Rash at IV no name no information (20 sources.) site Drug Allergy Polysaccharide Polysaccharide no information Kevon Cat (1 source.) iron complex iron complex [employer] (21877) Drug Allergy SITagliptin SITagliptin no information Kevon Sparks (1 source.) [employer] (46395) Medications No Information Problems Active Problems Problem Normalized Date Last Normalized Normalized Provider Fa cility Classification Problem(s) Recorded Problem Problem Sta tus Duration Abdominal pain Abdominal Episodic Active KOFI RODRIGUEZ Via (6 sources.) pain, MD [place] unspecified Hospital - site [place] Translations: (77073) [ UNSPECIFIED ABDOMINAL PAIN] NEGATED Acquired Episodic Active no name no informatio n no absence of information other (10 sources.) specified parts of digestive tract Translations: [ ACQUIRED ABSENCE OF OTHER ORGANS, FAMILY HX-GI MALIGNANCY, FAMILY HX OF ISCHEM HEART DIS AND OTH DI] Other upper Acute Episodic Active SARAI CASEY , DO Not Av ailable respiratory pharyngitis, (83096) infections (4 unspecified sources.) NEGATED Allergy status Episodic Active no name no info rmation no to other information (7 drugs, sources.) medicaments and biological substances status Translations: [ ALLERGY STATUS TO NARCOTIC AGENT STATUS, LATEX ALLERGY STATUS, ALLERGY STATUS TO OTH DRUG/MEDS/BIOL SUB] Other and Benign Episodic Active LEANDRO ALVAREZEHN , Not Avai lable unspecified neoplasm of MD (52415) benign left breast neoplasm (5 sources.) Gastrointestin Blood in stool Episodic Active no name no information al hemorrhage (3 sources.) Other Body mass Chronic Active [facility] Via nutritional; index (BMI) DO Tiffanie REEVES endocrine; and 33.0-33.9, Hospital - metabolic adult [place] disorders (1 (37851) source.) Calculus of Calculus of Episodic Active no name no infor mation urinary tract ureter (20 sources.) Translations: [ PERSONAL HISTORY OF URINARY CALCULI, CALCULUS OF KIDNEY, PERSONAL HISTORY OF URINARY CALCULI] NEGATED Chest pain, Episodic Active no name no informa tion no unspecified information Translations: (10 sources.) [ CHEST PAIN NEC] Coronary Coronary Chronic Active no name no informatio n atherosclerosi atherosclerosi s and other s of [place] heart disease coronary (3 sources.) artery Abdominal Diaphragmatic Episodic Active no name no infor mation hernia (3 hernia without sources.) mention of obstruction or gangrene Other Diarrhea, Episodic Active SHAILESH DELMY Not Availabl e gastrointestin unspecified (70149) al disorders (2 sources.) Other Encounter for Episodic Active LEANDRO SHOOKN , Not Available screening for screening (94346) suspected mammogram for conditions malignant (not mental neoplasm of disorders or breast infectious Translations: disease) (12 [ ABN sources.) CARDIOVASC STUDY NOS, ABNORMAL RESULTS OF THYROID FUNCTION SIDNEY] Esophageal Esophagitis, Episodic Active no name no infor mation disorders (3 unspecified sources.) NEGATED Hydronephrosis Episodic Active no name no info rmation no with renal and information (8 ureteral sources.) calculous obstruction Hemorrhoids (3 Internal Episodic Active no name no infor mation sources.) hemorrhoids without mention of complication Other USP Episodic Active SHAILESH BROCK Not Availabl e aftercare (2 (current) use (71968) sources.) of inhaled steroids Other USP Episodic Active no name no informati on aftercare (5 (current) use sources.) of systemic steroids Other Long-term Episodic Active no name no informati on aftercare (3 (current) use sources.) of other medications NEGATED Nausea Episodic Active no name no informatio n no Translations: information (7 [ NAUSEA WITH sources.) VOMITING, UNSPECIFIED] Other Obesity, Chronic Active MAYITO [facility] Via nutritional; unspecified DO Tiffanie REEVES endocrine; and Hospital - metabolic [place] disorders (1 (89599) source.) Residual Obstructive Chronic Active MAYITO [facility] Via codes; sleep apnea DO Tiffanie REEVES unclassified (adult) Hospital - (1 source.) (pediatric) [place] (58804) NEGATED Obstructive Chronic Active no name no informa tion no sleep apnea information (adult)(pediat (13 sources.) shanthi) Other bone Osteonecrosis Chronic Active Mehran Sheth , No t Available disease and due to MD (62564) musculoskeleta previous l deformities trauma, right (2 sources.) ankle Other female Other Episodic Active no name no informa tion genital noninflammator disorders (4 y disorders of sources.) ovary, fallopian tube and broad ligament Nonmalignant Other signs Episodic Active LEANDRO WELCH , No t Available breast and symptoms (14313) conditions (10 in breast sources.) Translations: [ UNSPECIFIED LUMP IN BREAST, SOLITARY CYST OF RIGHT BREAST] NEGATED Other no information Active MAYITO Not Avai lable no specified DO LEANDRO (87558) information (7 cardiac sources.) dysrhythmias Translations: [ PALPITATIONS] NEGATED Palpitations Episodic Active no name no inform ation no Translations: information [ TACHYCARDIA (11 sources.) NOS] Other Personal Episodic Active no name no informatio n gastrointestin history of al disorders other diseases (3 sources.) of digestive system NEGATED Personal Episodic Active no name no informatio n no history of information (7 other diseases sources.) of the digestive system Genitourinary Personal Episodic Active no name no inform ation symptoms and history of ill-defined other diseases conditions (5 of urinary sources.) system Diabetes Prediabetes Episodic Active MAYITO [facility] Via mellitus DO Tiffanie REEVES without Hospital - complication [place] (1 source.) (03975) Esophageal Reflux Chronic Active no name no informati on disorders (3 esophagitis sources.) Osteoarthritis Secondary Chronic Active Mehran Sheth No t Available (3 sources.) osteoarthritis (58353) , right ankle and foot Translations: [ PRIMARY OSTEOARTHRITIS , RIGHT ANKLE AND ] Syncope (2 Syncope and Episodic Active SHAILESH DELMY Not Avail able sources.) collapse (81089) NEGATED Unspecified Chronic Active no name no informa tion no asthma, information (7 uncomplicated sources.) Essential Unspecified Chronic Active MAYITO [facility] Via hypertension essential DO Tiffanie REEVES (4 sources.) hypertension Hospital - Translations: [place] [ ESSENTIAL (81996) (PRIMARY) HYPERTENSION] NEGATED Unspecified Episodic Active no name no informa tion no gastritis and information (6 gastroduodenit sources.) is, without mention of hemorrhage Past or Other Problems Problem Normalized Date Last Normalized Normalized Provider Fa henok Classification Problem(s) Recorded Problem Problem Sta tus Duration Other Care involving Episodic Completed YOGI WARREN , No t Available aftercare (2 other physical (91718) sources.) therapy Other Enthesopathy Episodic Completed YOGI WARREN , Not Available connective of hip region (74564) tissue disease (2 sources.) Residual Other no information no information LEANDRO WELCH [facility] Via codes; specified MD [place] unclassified postprocedural Hospital - (1 source.) states [place] (09603) Other Pain in right Episodic Completed Mehran Sheth , Not Available non-traumatic ankle and (71852) joint joints of disorders (1 right foot source.) Diabetes Prediabetes no information no information MAYITO Not Available mellitus DO LEANDRO (63263) without complication (5 sources.) Procedures Procedure Normalized Procedure Procedure Result Performer Facility Date NEGATED EXTIRPATION OF MATTER no information no name n o information FROM LEFT URETER, [facility] ankle complete no information no name Not Avail able (30942) minimum 3 views Immunizations No Information Results Test Name Value Interpretation Reference Range Date Time Fa cility (Normalized) (Normalized) (Medline Reference) metabolic panel on null Protein no information (no code) Not Available [Mass/Vol] (63953) Vital Signs No Information Interventions No Information Plan of Treatment No Information Goals No Information Social History No Information Functional Status No Information Mental Status No Information Encounters Encounter Normalized Encounter Encounter Diagnosis Care Provi jose Organization Date Type 01-03-2018 Emergency department no information no name no organization name - patient visit 01-03-2018 10-05-2017 Emergency department no information no name no organization name - patient visit 10-05-2017 08-29-2017 Emergency department no information no name no organization name - patient visit 08-29-2017 12-27-2015 Emergency department no information no name no organization name - patient visit 12-28-2015 NEGATED Evaluation and no information no name no organ ization name 10-05-2017 management of - inpatient 10-07-2017 01-03-2018 Patient encounter no information no name no or ganization name 12-22-2017 Patient encounter no information no name no or ganization name NEGATED Patient encounter no information no name no or ganization name 11-14-2017 - 11-21-2017 10-05-2017 Patient encounter no information no name no or ganization name - 10-07-2017 09-15-2017 Patient encounter no information no name no or ganization name 09-01-2017 Patient encounter no information no name no or ganization name 08-29-2017 Patient encounter no information no name no or ganization name 06-25-2017 Patient encounter no information no name no or ganization name 03-18-2017 Patient encounter no information no name no or ganization name 06-06-2016 Patient encounter no information no name no or ganization name 04-08-2016 Patient encounter no information no name no or ganization name 04-01-2016 Patient encounter no information no name no or ganization name 03-22-2016 Patient encounter no information no name no or ganization name 12-12-2014 Patient encounter no information no name no or ganization name - 12-12-2014 NEGATED Patient encounter no information no name no or ganization name 12-08-2014 08-19-2014 Patient encounter no information no name no or ganization name 07-27-2014 Patient encounter no information no name no or ganization name - 07-27-2014 NEGATED Patient encounter no information no name no or ganization name 07-20-2014 NEGATED Patient encounter no information no name no or ganization name 07-14-2014 NEGATED Patient encounter no information no name no or ganization name 05-25-2014 NEGATED Patient encounter no information no name no or ganization name 05-20-2014 - 08-18-2014 03-04-2014 Patient encounter no information no name no or ganization name - 03-05-2014 NEGATED Patient encounter no information no name no or ganization name 03-02-2014 NEGATED Patient encounter no information no name no or ganization name 06-08-2012 - 06-08-2012 02-11-2019 Patient encounter no information no name no or ganization name procedure 02-05-2019 Patient encounter no information JULEE YOUNG MD ( no [facility] [place] - procedure phone) [facility] 05-05-2019 (no phone) 09-10-2018 Patient encounter no information no name no or ganization name procedure 08-31-2018 Patient encounter no information no name no or ganization name procedure 08-31-2018 Patient encounter no information no name no or ganization name procedure 07-23-2018 Patient encounter no information no name no or ganization name procedure 07-16-2016 Patient encounter no information no name no or ganization name procedure 06-03-2012 Patient encounter no information no name no or ganization name procedure 02-24-2012 Patient encounter no information no name no or ganization name - procedure 02-24-2012 NEGATED no information Pre-operative no name no organi zation name examination, unspecified Medical Equipment No Information Payers No Information Additional Source Comments This clinical document has been generated using [employer] software that has been certified by the Office of the National Coordinator for Health Information Technology (ONC 15.99.04.3023.[id number].[id number]) and the National Committee for [employer] (NCQA, as an eMeasure certified technology). FOR RECORDS PERTAINING TO PATIENTS WHO ARE OR HAVE BEEN ENROLLED IN A CHEMICAL D EPENDENCY/SUBSTANCE ABUSE PROGRAM, SOME INFORMATION MAY BE OMITTED. This clinica l summary was aggregated from multiple sources. Caution should be exercised in using it in the provision of clinical care. This summary normalizes information from multiple sources, and as a consequence, information in this document may ma terially change the coding, format and clinical context of patient data. In gama tion, data may be omitted in some cases. CLINICAL DECISIONS SHOULD BE BASED ON T HE PRIMARY CLINICAL RECORDS. [facility], [facility]. provides no warranty or guara ntee of the accuracy or completeness of information in this document.The followi ng information is based on time limited clinical information
--- OUTSIDE RECORDS SUMMARY | 2019-09-10 15:07 | XMS REPORT | Continuity of Care Document ---
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 AP/Mort/Lat Fanfrancis, [facility] 07/16/2016 [id number] EX TIRPATION OF MATTER FROM LEFT URETER, 10/07/2017 [id number] Danette gonzalez 3V WB AP/Mort/Lat Fanfrancis, [facility] 07/23/2018 Results Test Result Range Complete blood count (CBC) with automate d white blood cell (WBC) differential - 12/27/15 20:45 Blood leukocytes automated count (number/volume) 15.5 10*3/uL 4.3-11.0 Blood erythrocytes automated count (number/volume) 4.41 10*6/uL 4.35-5.85 Venous blood hemoglobin measurement (mass/volume) 11.3 g/dL 11.5-16.0 Blood hematocrit (volume fraction) 36 % 35-52 Automated erythrocyte mean corpuscular volume 82 [ foz_us] 80-99 Automated erythrocyte mean corpuscular h emoglobin (mass per erythrocyte) 26 pg 25-34 Automated erythrocyte mean corpuscular h emoglobin concentration measurement (mass/volume) 31 g/dL 32-36 Automated erythrocyte distribution width ratio 15. 2 % 10.0- 14.5 Automated blood platelet count (count/volume) 268 10*3/uL [...] 10*3 1.0-4.0 Blood monocytes automated count (number/volume) 1. 1 10*3 0.0-1.0 Automated eosinophil count 0.2 10*3/uL 0 .0-0.3 Automated blood basophil count (count/volume) 0.0 10*3/uL 0.0-0.1 Serum or plasma choriogonadotropin (preg luiza test) detection - 12/27/15 20:45 Serum or plasma choriogonadotropin ( test) de tection NEGATIVE NEGATIVE Serum heterophile antibody titer - 12/26 20:45 Serum heterophile antibody titer NEGATIVE NEGATIVE Blood manual differential performed dete ction - 12/27/15 20:45 Blood monocytes/100 leukocytes 3 % NRG Manual blood segmented neutrophils/100 leukocytes 77 % NRG Blood band neutrophils/100 leukocytes 3 % NRG Manual blood lymphocytes/100 leukocytes 14 % NRG Manual eosinophils/100 leukocytes in nose 0 % NRG Manual blood basophils/100 leukocytes 0 % NRG Blood lymphocytes variant/100 leukocytes 3 % NRG Blood erythrocyte morphology finding identification NORMAL [facility] Comprehensive metabolic panel - 12/27/15 20:45 Serum or plasma sodium measurement (moles/volume) 137 mmol/L 135-145 Serum or plasma potassium measurement (moles/volume) 3.7 mmol/L 3.6-5.0 Serum or plasma chloride measurement (moles/volume) 103 mmol/L 98-107 Carbon dioxide 21 mmol/L 21-32 Serum or plasma anion gap determination (moles/volume) 13 mmol/L 5-14 Serum or plasma urea nitrogen measurement (mass/volume ) 8 mg/dL 7-18 Serum or plasma creatinine measurement (mass/volume) 0.80 mg/dL 0.60-1.30 Serum or plasma urea nitrogen/creatinine mass ratio 10 NRG Serum or plasma creatinine measurement w ith calculation of estimated glomerular filtration rate > NRG Serum or plasma glucose measurement (mass/volume) 98 mg/dL 70-105 Serum or plasma calcium measurement (mass/volume) 8.9 mg/dL 8.5-10.1 Serum or plasma total bilirubin measurement (mass/volu me) 0.3 mg/dL 0.1-1.0 Serum or plasma alkaline phosphatase karyna surement (enzymatic activity/volume) 79 U/L 40-136 Serum or plasma aspartate aminotransfera se measurement (enzymatic activity/volume) 12 U/L 5-34 Serum or plasma alanine aminotransferase measurement (enzymatic activity/volume) 16 U/L 0-55 Serum or plasma protein measurement (mass/volume) 7.0 g/dL 6.4-8.2 Serum or plasma albumin measurement (mass/volume) 3.9 g/dL 3.2-4.5 Streptococcus pyogenes antigen detection - 12/27/15 20:50 Streptococcus pyogenes antigen detection NEGATIVE NEGATIVE Bacterial throat culture - 12/27/15 20:5 0 Bacterial throat culture [id number] NR FREE TEXT EXTERNAL PLUS NORMAL KATIE NR G QUANTITY OF GROWTH Isolated NRG Bacterial blood culture - 12/27/15 21:39 Bacterial blood culture NG NRG Bacterial blood culture - 12/27/15 22:00 Bacterial blood culture NG NRG Complete blood count (CBC) with automate d white blood cell (WBC) differential - 08/29/17 04:25 Blood leukocytes automated count (number/volume) 10.5 10*3/uL 4.3-11.0 Blood erythrocytes automated count (number/volume) 4.62 10*6/uL 4.35-5.85 Venous blood hemoglobin measurement (mass/volume) 12.5 g/dL 11.5-16.0 Blood hematocrit (volume fraction) 38 % 35-52 Automated erythrocyte mean corpuscular volume 81 [ foz_us] 80-99 Automated erythrocyte mean corpuscular h emoglobin (mass per erythrocyte) 27 pg 25-34 Automated erythrocyte mean corpuscular h emoglobin concentration measurement (mass/volume) 33 g/dL 32-36 Automated erythrocyte distribution width ratio 15. 5 % 10.0- 14.5 Automated blood platelet count (count/volume) 294 10*3/uL [...] 10*3 1.0-4.0 Blood monocytes automated count (number/volume) 0. 7 10*3 0.0-1.0 Automated eosinophil count 0.4 10*3/uL 0 .0-0.3 Automated blood basophil count (count/volume) 0.1 10*3/uL 0.0-0.1 Serum or plasma choriogonadotropin (preg luiza test) detection - 08/29/17 04:25 Serum or plasma choriogonadotropin ( test) de tection NEGATIVE NEGATIVE Comprehensive metabolic panel - 08/29/17 04:25 Serum or plasma sodium measurement (moles/volume) 139 mmol/L 135-145 Serum or plasma potassium measurement (moles/volume) 4.5 mmol/L 3.6-5.0 Serum or plasma chloride measurement (moles/volume) 106 mmol/L 98-107 Carbon dioxide 20 mmol/L 21-32 Serum or plasma anion gap determination (moles/volume) 13 mmol/L 5-14 Serum or plasma urea nitrogen measurement (mass/volume ) 15 mg/dL 7-18 Serum or plasma creatinine measurement (mass/volume) 0.84 mg/dL 0.60-1.30 Serum or plasma urea nitrogen/creatinine mass ratio 18 NRG Serum or plasma creatinine measurement w ith calculation of estimated glomerular filtration rate > NRG Serum or plasma glucose measurement (mass/volume) 106 mg/dL 70-105 Serum or plasma calcium measurement (mass/volume) 9.4 mg/dL 8.5-10.1 Serum or plasma total bilirubin measurement (mass/volu me) 0.3 mg/dL 0.1-1.0 Serum or plasma alkaline phosphatase karyna surement (enzymatic activity/volume) 69 U/L 40-136 Serum or plasma aspartate aminotransfera se measurement (enzymatic activity/volume) 15 U/L 5-34 Serum or plasma alanine aminotransferase measurement (enzymatic activity/volume) 20 U/L 0-55 Serum or plasma protein measurement (mass/volume) 7.4 g/dL 6.4-8.2 Serum or plasma albumin measurement (mass/volume) 4.2 g/dL 3.2-4.5 Serum or plasma amylase measurement (enz ymatic activity/volume) - 08/29/17 04:25 Serum or plasma amylase measurement (enzymatic activit y/volume) 43 U/L 25-125 Lipase - 08/29/17 04:25 Lipase 21 U/L 8-78 Complete urinalysis with reflex to cultu re - 08/29/17 06:35 Urine color determination YELLOW NRG Urine clarity determination CLEAR NR G Urine pH measurement by test strip 6 5-9 Specific gravity of urine by test strip 1.015 1.016-1.022 Urine protein assay by test strip, semi-quantitative 1+ NEGATIVE Urine glucose detection by automated test strip NE GATIVE NEGATIVE Erythrocytes detection in urine sediment by light micr oscopy 5+ NEGATIVE Urine ketones detection by automated test strip NE GATIVE NEGATIVE Urine nitrite detection by test strip NEGATIVE NEGATIVE Urine total bilirubin detection by test strip NEGA TIVE NEGATIVE Urine urobilinogen measurement by automated test strip (mass/volume) NORMAL NORMAL Urine leukocyte esterase detection by dipstick NEG ATIVE NEGATIVE Automated urine sediment erythrocyte cou nt by microscopy (number/high power field) [HPF] NRG Automated urine sediment leukocyte count by microscopy (number/high power field) [HPF] NRG Bacteria detection in urine sediment by light microsco py TRACE NRG Squamous epithelial cells detection in u rine sediment by light microscopy 2-5 NRG Crystals detection in urine sediment by light microsco py NONE NRG Casts detection in urine sediment by light microscopy NONE NRG Mucus detection in urine sediment by light microscopy NEGATIVE NRG Complete urinalysis with reflex to culture NO NRG Complete urinalysis with reflex to cultu re - 10/05/17 18:34 Urine color determination YELLOW NRG Urine clarity determination SLIGHTLY CLOUDY NRG Urine pH measurement by test strip 5 5-9 Specific gravity of urine by test strip 1.025 1.016-1.022 Urine protein assay by test strip, semi-quantitative 1+ NEGATIVE Urine glucose detection by automated test strip NE GATIVE NEGATIVE Erythrocytes detection in urine sediment by light micr oscopy 5+ NEGATIVE Urine ketones detection by automated test strip NE GATIVE NEGATIVE Urine nitrite detection by test strip NEGATIVE NEGATIVE Urine total bilirubin detection by test strip NEGA TIVE NEGATIVE Urine urobilinogen measurement by automated test strip (mass/volume) NORMAL NORMAL Urine leukocyte esterase detection by dipstick NEG ATIVE NEGATIVE Automated urine sediment erythrocyte cou nt by microscopy (number/high power field) RARE NRG Automated urine sediment leukocyte count by microscopy (number/high power field) NONE NRG Bacteria detection in urine sediment by light microsco py NEGATIVE NRG Squamous epithelial cells detection in u rine sediment by light microscopy 5-10 NRG Crystals detection in urine sediment by light microsco py NONE NRG Casts detection in urine sediment by light microscopy NONE NRG Mucus detection in urine sediment by light microscopy NEGATIVE NRG Complete urinalysis with reflex to culture YES NRG Yeast detection in urine sediment by light microscopy MODERATE NRG Bacterial urine culture - 10/05/17 18:34 Bacterial urine culture [id number] NRG COLONY COUNT . NRG FTX;REPORTABLE 30,000 CFU/ML NR FREE TEXT ENTRY 2 [facility] - 10/05/17 18:34 Gentamicin susceptibility test by minimum inhibitory c oncentration <= NRG Trimethoprim/sulfamethoxazole susceptibi lity test by minimum inhibitoryconcentration <= NRG Levofloxacin susceptibility test by minimum inhibitory concentration > NRG Ampicillin susceptibility test by minimum inhibitory c oncentration > NRG Cefazolin susceptibility test by minimum inhibitory co ncentration 2 NRG Ceftriaxone susceptibility test by minimum inhibitory concentration <= NRG Ciprofloxacin susceptibility test by minimum inhibitor y concentration > NRG Meropenem susceptibility test by minimum inhibitory co ncentration <= NRG Nitrofurantoin susceptibility test by mi nimum inhibitory concentration <= NRG Amoxicillin and clavulanate potassium susc RAGHAV = NRG L Sensitivity Panel - 10/05/17 18:34 Gentamicin susceptibility test by minimum inhibitory c oncentration <= NRG Trimethoprim/sulfamethoxazole susceptibi lity test by minimum inhibitoryconcentration > NRG Levofloxacin susceptibility test by minimum inhibitory concentration <= NRG Ampicillin susceptibility test by minimum inhibitory c oncentration > NRG Cefazolin susceptibility test by minimum inhibitory co ncentration <= NRG Ceftriaxone susceptibility test by minimum inhibitory concentration <= NRG Ciprofloxacin susceptibility test by minimum inhibitor y concentration <= NRG Meropenem susceptibility test by minimum inhibitory co ncentration <= NRG Nitrofurantoin susceptibility test by mi nimum inhibitory concentration <= NRG Amoxicillin and clavulanate potassium susc RAGHAV <= NRG Complete blood count (CBC) with automate d white blood cell (WBC) differential - 10/05/17 18:47 Blood leukocytes automated count (number/volume) 12.4 10*3/uL 4.3-11.0 Blood erythrocytes automated count (number/volume) 4.32 10*6/uL 4.35-5.85 Venous blood hemoglobin measurement (mass/volume) 11.5 g/dL 11.5-16.0 Blood hematocrit (volume fraction) 35 % 35-52 Automated erythrocyte mean corpuscular volume 81 [ foz_us] 80-99 Automated erythrocyte mean corpuscular h emoglobin (mass per erythrocyte) 27 pg 25-34 Automated erythrocyte mean corpuscular h emoglobin concentration measurement (mass/volume) 33 g/dL 32-36 Automated erythrocyte distribution width ratio 15. 6 % 10.0- 14.5 Automated blood platelet count (count/volume) 271 10*3/uL [...] 10*3 1.0-4.0 Blood monocytes automated count (number/volume) 0. 9 10*3 0.0-1.0 Automated eosinophil count 0.3 10*3/uL 0 .0-0.3 Automated blood basophil count (count/volume) 0.0 10*3/uL 0.0-0.1 Whole blood basic metabolic panel - 09/21 08/08 18:47 Serum or plasma sodium measurement (moles/volume) 136 mmol/L 135-145 Serum or plasma potassium measurement (moles/volume) 4.0 mmol/L 3.6-5.0 Serum or plasma chloride measurement (moles/volume) 109 mmol/L 98-107 Carbon dioxide 17 mmol/L 21-32 Serum or plasma anion gap determination (moles/volume) 10 mmol/L 5-14 Serum or plasma urea nitrogen measurement (mass/volume ) 17 mg/dL 7-18 Serum or plasma creatinine measurement (mass/volume) 0.99 mg/dL 0.60-1.30 Serum or plasma urea nitrogen/creatinine mass ratio 17 NRG Serum or plasma creatinine measurement w ith calculation of estimated glomerular filtration rate > NRG Serum or plasma glucose measurement (mass/volume) 88 mg/dL 70-105 Serum or plasma calcium measurement (mass/volume) 8.6 mg/dL 8.5-10.1 Complete blood count (CBC) with automate d white blood cell (WBC) differential - 10/06/17 05:48 Blood leukocytes automated count (number/volume) 9.2 10*3/uL 4.3-11.0 Blood erythrocytes automated count (number/volume) 4.16 10*6/uL 4.35-5.85 Venous blood hemoglobin measurement (mass/volume) 11.1 g/dL 11.5-16.0 Blood hematocrit (volume fraction) 34 % 35-52 Automated erythrocyte mean corpuscular volume 81 [ foz_us] 80-99 Automated erythrocyte mean corpuscular h emoglobin (mass per erythrocyte) 27 pg 25-34 Automated erythrocyte mean corpuscular h emoglobin concentration measurement (mass/volume) 33 g/dL 32-36 Automated erythrocyte distribution width ratio 15. 2 % 10.0- 14.5 Automated blood platelet count (count/volume) 233 10*3/uL [...] 10*3 1.0-4.0 Blood monocytes automated count (number/volume) 0. 6 10*3 0.0-1.0 Automated eosinophil count 0.3 10*3/uL 0 .0-0.3 Automated blood basophil count (count/volume) 0.0 10*3/uL 0.0-0.1 Whole blood basic metabolic panel - 09/21 09/08 05:48 Serum or plasma sodium measurement (moles/volume) 137 mmol/L 135-145 Serum or plasma potassium measurement (moles/volume) 3.8 mmol/L 3.6-5.0 Serum or plasma chloride measurement (moles/volume) 110 mmol/L 98-107 Carbon dioxide 20 mmol/L 21-32 Serum or plasma anion gap determination (moles/volume) 7 mmol/L 5-14 Serum or plasma urea nitrogen measurement (mass/volume ) 14 mg/dL 7-18 Serum or plasma creatinine measurement (mass/volume) 0.83 mg/dL 0.60-1.30 Serum or plasma urea nitrogen/creatinine mass ratio 17 NRG Serum or plasma creatinine measurement w ith calculation of estimated glomerular filtration rate > NRG Serum or plasma glucose measurement (mass/volume) 95 mg/dL 70-105 Serum or plasma calcium measurement (mass/volume) 8.3 mg/dL 8.5-10.1 Urine beta human chorionic gonadotropin (hCG) measurement - 10/07/17 08:15 Urine beta human chorionic gonadotropin (hCG) measurem ent NEGATIVE NEGATIVE Measurement of weight of kidney [...] Sodium urate/total calculus mass ratio by infrared spe ctroscopy 69 % < 200 Sulfites [presence] in urine by test strip 9 < 30 Urine phosphate measurement (mass/volume) 675 % < 1100 Urine magnesium measurement (mass/volume) 55 % > 60 Urine calcium oxalate measurement 3.75 < 2.00 Urine calcium phosphate crystals detecti on by computer assisted method 1.75 < 2.00 24 hour urine sodium urate (saturation fraction) 5 .08 < 2.00 Triple phosphate crystals detection in u rine sediment by light microscopy 0.81 < 75.00 24 hour urine uric acid (saturation fraction) 4.07 < 2.00 Urine ammonium measurement 22 % 14- 62 Urine potassium measurement 41 % 19 -135 24 hour urine creatinine measurement (mass/time) 1 316 % 600- 1800 Clinical supervisor modern languages review of results Uric Acid Li thiasis [facility] Complete blood count (CBC) with automate d white blood cell (WBC) differential - 01/03/18 14:06 Blood leukocytes automated count (number/volume) 15.3 10*3/uL 4.3-11.0 Blood erythrocytes automated count (number/volume) 5.32 10*6/uL 4.35-5.85 Venous blood hemoglobin measurement (mass/volume) 14.1 g/dL 11.5-16.0 Blood hematocrit (volume fraction) 43 % 35-52 Automated erythrocyte mean corpuscular volume 80 [ foz_us] 80-99 Automated erythrocyte mean corpuscular h emoglobin (mass per erythrocyte) 27 pg 25-34 Automated erythrocyte mean corpuscular h emoglobin concentration measurement (mass/volume) 33 g/dL 32-36 Automated erythrocyte distribution width ratio 14. 9 % 10.0- 14.5 Automated blood platelet count (count/volume) 365 10*3/uL 130-400 Automated blood platelet mean volume measurement 10.3 [foz_us] 7.4-10.4 Automated blood neutrophils/100 leukocytes 76 % 42-75 Automated blood lymphocytes/100 leukocytes 16 % 12-44 Blood monocytes/100 leukocytes 6 % 0-12 Automated blood eosinophils/100 leukocytes 2 % 0-10 Automated blood basophils/100 leukocytes 0 % 0-10 Blood neutrophils automated count (number/volume) 11.5 10*3 1.8-7.8 Blood lymphocytes automated count (number/volume) 2.5 10*3 1.0-4.0 Blood monocytes automated count (number/volume) 1. 0 10*3 0.0-1.0 Automated eosinophil count 0.2 10*3/uL 0 .0-0.3 Automated blood basophil count (count/volume) 0.1 10*3/uL 0.0-0.1 Comprehensive metabolic panel - 01/03/18 14:06 Serum or plasma sodium measurement (moles/volume) 139 mmol/L 135-145 Serum or plasma potassium measurement (moles/volume) 4.1 mmol/L 3.6-5.0 Serum or plasma chloride measurement (moles/volume) 106 mmol/L 98-107 Carbon dioxide 19 mmol/L 21-32 Serum or plasma anion gap determination (moles/volume) 14 mmol/L 5-14 Serum or plasma urea nitrogen measurement (mass/volume ) 21 mg/dL 7-18 Serum or plasma creatinine measurement (mass/volume) 1.04 mg/dL 0.60-1.30 Serum or plasma urea nitrogen/creatinine mass ratio 20 NRG Serum or plasma creatinine measurement w ith calculation of estimated glomerular filtration rate 58 NRG Serum or plasma glucose measurement (mass/volume) 129 mg/dL 70-105 Serum or plasma calcium measurement (mass/volume) 10.5 mg/dL 8.5-10.1 Serum or plasma total bilirubin measurement (mass/volu me) 0.4 mg/dL 0.1-1.0 Serum or plasma alkaline phosphatase karyna surement (enzymatic activity/volume) 79 U/L 40-136 Serum or plasma aspartate aminotransfera se measurement (enzymatic activity/volume) 13 U/L 5-34 Serum or plasma alanine aminotransferase measurement (enzymatic activity/volume) 17 U/L 0-55 Serum or plasma protein measurement (mass/volume) 8.5 g/dL 6.4-8.2 Serum or plasma albumin measurement (mass/volume) 4.9 g/dL 3.2-4.5 Blood manual differential performed dete ction - 01/03/18 14:06 Blood monocytes/100 leukocytes 5 % NRG Manual blood segmented neutrophils/100 leukocytes 58 % NRG Manual blood lymphocytes/100 leukocytes 36 % NRG Manual eosinophils/100 leukocytes in nose 1 % NRG Complete urinalysis with reflex to cultu re - 01/03/18 14:34 Urine color determination YELLOW NRG Urine clarity determination SLIGHTLY CLOUDY NRG Urine pH measurement by test strip 5 5-9 Specific gravity of urine by test strip 1.025 1.016-1.022 Urine protein assay by test strip, semi-quantitative 2+ NEGATIVE Urine glucose detection by automated test strip NE GATIVE NEGATIVE Erythrocytes detection in urine sediment by light micr oscopy NEGATIVE NEGATIVE Urine ketones detection by automated test strip NE GATIVE NEGATIVE Urine nitrite detection by test strip NEGATIVE NEGATIVE Urine total bilirubin detection by test strip NEGA TIVE NEGATIVE Urine urobilinogen measurement by automated test strip (mass/volume) NORMAL NORMAL Urine leukocyte esterase detection by dipstick 1+ NEGATIVE Automated urine sediment erythrocyte cou nt by microscopy (number/high power field) NONE NRG Automated urine sediment leukocyte count by microscopy (number/high power field) [HPF] NRG Bacteria detection in urine sediment by light microsco py TRACE NRG Squamous epithelial cells detection in u rine sediment by light microscopy 25-50 NRG Crystals detection in urine sediment by light microsco py PRESENT NRG Casts detection in urine sediment by light microscopy NONE NRG Mucus detection in urine sediment by light microscopy MODERATE NRG Complete urinalysis with reflex to culture NO NRG Amorphous sediment detection in urine sediment by ligh t microscopy FEW GUS URATES NRG Stool bacteria identification by culture - 01/03/18 14:34 Stool bacteria identification by culture N2 NRG Hemoglobin A1c measurement - 02/05/19 09 :03 Blood hemoglobin A1C measurement (mass/volume) 5.4 % 4.0-5.6 MEAN BLOOD GLUCOSE 108 % <=126 Comprehensive metabolic panel - 02/05/19 09:05 Serum or plasma sodium measurement (moles/volume) 138 mmol/L 135-145 Serum or plasma potassium measurement (moles/volume) 5.9 mmol/L 3.6-5.0 Serum or plasma chloride measurement (moles/volume) 106 mmol/L 98-107 Carbon dioxide 19 mmol/L 21-32 Serum or plasma anion gap determination (moles/volume) 13 mmol/L 5-14 Serum or plasma urea nitrogen measurement (mass/volume ) 11 mg/dL 7-18 Serum or plasma creatinine measurement (mass/volume) 0.89 mg/dL 0.60-1.30 Serum or plasma urea nitrogen/creatinine mass ratio 12 NRG Serum or plasma creatinine measurement w ith calculation of estimated glomerular filtration rate > NRG Serum or plasma glucose measurement (mass/volume) 89 mg/dL 70-105 Serum or plasma calcium measurement (mass/volume) 9.3 mg/dL 8.5-10.1 Serum or plasma total bilirubin measurement (mass/volu me) 0.2 mg/dL 0.1-1.0 Serum or plasma alkaline phosphatase karyna surement (enzymatic activity/volume) 60 U/L 40-136 Serum or plasma aspartate aminotransfera se measurement (enzymatic activity/volume) 51 U/L 5-34 Serum or plasma alanine aminotransferase measurement (enzymatic activity/volume) 13 U/L 0-55 Serum or plasma protein measurement (mass/volume) 8.7 g/dL 6.4-8.2 Serum or plasma albumin measurement (mass/volume) 4.4 g/dL 3.2-4.5 CALCIUM CORRECTED 9.0 mg/dL 8.5-10.1 Lipid 1996 panel - 02/05/19 09:05 Serum or plasma triglyceride measurement (mass/volume) 83 mg/dL <150 Serum or plasma cholesterol measurement (mass/volume) 197 mg/dL < 200 Serum or plasma cholesterol in HDL measurement (mass/v olume) 58 mg/dL 40-60 Cholesterol in LDL [mass/volume] in serum or plasma by direct assay 130 mg/dL 1-129 Serum or plasma cholesterol in VLDL measurement (mass/ volume) 17 mg/dL 5-40 THYROID STIMULATING HORMONE - 02/05/19 0 9:05 THYROID STIMULATING HORMONE 0.21 u[iU]/mL 0.35-4.94 CD3+CD4+ (T4 helper) cells/100 cells in blood - 02/08/19 08:05 Timed urine calcium measurement (mass/volume) 154 % < 250 Urine oxalate detection 23 < 45 Urine uric acid measurement (mass/volume) 466 % < 700 Urine citrate measurement (mass/volume) 642 % > 320 Urine pH measurement 6.5 5.5-7.0 24 hour urine specimen volume measurement 0.90 % > 2.00 Sodium urate/total calculus mass ratio by infrared spe ctroscopy 141 % < 200 Sulfites [presence] in urine by test strip 10 < 30 Urine phosphate measurement (mass/volume) 1354 % < 1100 Urine magnesium measurement (mass/volume) 106 % > 60 Urine calcium oxalate measurement 1.67 < 2.00 Urine calcium phosphate crystals detecti on by computer assisted method 6.18 < 2.00 24 hour urine sodium urate (saturation fraction) 5 .96 < 2.00 Triple phosphate crystals detection in u rine sediment by light microscopy 10.78 < 75.00 24 hour urine uric acid (saturation fraction) 0.75 < 2.00 Urine ammonium measurement 21 % 14- 62 24 hour urine creatinine measurement (mass/time) 1 449 % 600- 1800 Clinical supervisor modern languages review of results See Below NRG STONE RISK POTASSIUM 62 % 19-135 Serum or plasma potassium measurement (m oles/volume) - 02/11/19 09:14 Serum or plasma potassium measurement (moles/volume) 3.6 mmol/L 3.6-5.0 Serum or plasma thyroxine (T4) free ck urement (mass/volume) - 02/11/19 09:14 Serum or plasma thyroxine (T4) free measurement (mass/ volume) 0.99 ng/dL 0.70-1.48 TRIIODOTHYRONINE TOTAL T3 - 02/11/19 09: 14 TRIIODOTHYRONINE T3 TOTAL 1.03 % 0.60 -1.80 Complete blood count (CBC) with automate d white blood cell (WBC) differential - 09/10/19 13:50 Blood leukocytes automated count (number/volume) 9.9 10*3/uL 4.3-11.0 Blood erythrocytes automated count (number/volume) 4.59 10*6/uL 4.35-5.85 Venous blood hemoglobin measurement (mass/volume) 13.0 g/dL 11.5-16.0 Blood hematocrit (volume fraction) 39 % 35-52 Automated erythrocyte mean corpuscular volume 85 [ foz_us] 80-99 Automated erythrocyte mean corpuscular h emoglobin (mass per erythrocyte) 28 pg 25-34 Automated erythrocyte mean corpuscular h emoglobin concentration measurement (mass/volume) 33 g/dL 32-36 Automated erythrocyte distribution width ratio 14. 1 % 10.0- 14.5 Automated blood platelet count (count/volume) 282 10*3/uL 130-400 Automated blood platelet mean volume measurement 10.3 [foz_us] 7.4-10.4 Automated blood neutrophils/100 leukocytes 77 % 42-75 Automated blood lymphocytes/100 leukocytes 17 % 12-44 Blood monocytes/100 leukocytes 5 % 0-12 Automated blood eosinophils/100 leukocytes 1 % 0-10 Automated blood basophils/100 leukocytes 0 % 0-10 Blood neutrophils automated count (number/volume) 7.6 10*3 1.8-7.8 Blood lymphocytes automated count (number/volume) 1.7 10*3 1.0-4.0 Blood monocytes automated count (number/volume) 0. 5 10*3 0.0-1.0 Automated eosinophil count 0.1 10*3/uL 0 .0-0.3 Automated blood basophil count (count/volume) 0.0 10*3/uL 0.0-0.1 Comprehensive metabolic panel - 09/10/19 13:50 Serum or plasma sodium measurement (moles/volume) 137 mmol/L 135-145 Serum or plasma potassium measurement (moles/volume) 3.6 mmol/L 3.6-5.0 Serum or plasma chloride measurement (moles/volume) 101 mmol/L 98-107 Carbon dioxide 25 mmol/L 21-32 Serum or plasma anion gap determination (moles/volume) 11 mmol/L 5-14 Serum or plasma urea nitrogen measurement (mass/volume ) 12 mg/dL 7-18 Serum or plasma creatinine measurement (mass/volume) 0.95 mg/dL 0.60-1.30 Serum or plasma urea nitrogen/creatinine mass ratio 13 NRG Serum or plasma creatinine measurement w ith calculation of estimated glomerular filtration rate > NRG Serum or plasma glucose measurement (mass/volume) 100 mg/dL 70-105 Serum or plasma calcium measurement (mass/volume) 9.5 mg/dL 8.5-10.1 Serum or plasma total bilirubin measurement (mass/volu me) 0.4 mg/dL 0.1-1.0 Serum or plasma alkaline phosphatase karyna surement (enzymatic activity/volume) 73 U/L 40-136 Serum or plasma aspartate aminotransfera se measurement (enzymatic activity/volume) 13 U/L 5-34 Serum or plasma alanine aminotransferase measurement (enzymatic activity/volume) 13 U/L 0-55 Serum or plasma protein measurement (mass/volume) 7.9 g/dL 6.4-8.2 Serum or plasma albumin measurement (mass/volume) 4.5 g/dL 3.2-4.5 CALCIUM CORRECTED 9.1 mg/dL 8.5-10.1 PT panel in platelet poor plasma by coag ulation assay - 09/10/19 13:50 Prothrombin time (PT) in platelet poor plasma by coagu lation assay 12.9 s 12.2-14.7 INR in platelet poor plasma or blood by coagulation as say 0.9 0.8-1.4 Activated partial thromboplastin time (a PTT) in platelet poor plasma bycoagulation assay - 09/10/19 13:50 Activated partial thromboplastin time (a PTT) in platelet poor plasma bycoagulation assay 28 s 24-35 Fibrin D-dimer FEU measurement in platel et poor plasma (mass/volume) - 09/10/19 13:50 Fibrin D-dimer FEU measurement in platelet poor plasma (mass/volume) < ug/mL 0.00-0.49 Magnesium - 09/10/19 13:50 Magnesium 1.9 mg/dL 1.6-2.4 Myoglobin, serum - 09/10/19 13:50 Myoglobin, serum 25.1 ng/mL 10.0-92.0 Lipase - 09/10/19 13:50 Lipase 26 U/L 8-78 Serum or plasma troponin i.cardiac measu rement (mass/volume) - 09/10/19 13:50 Serum or plasma troponin i.cardiac measurement (mass/v olume) 0.039 ng/mL <0.028 Serum or plasma lithium measurement (mol es/volume) - 09/10/19 13:50 BNP PT < 10.0 <100.0 Radiology Report from [id number] on 11:53:00 Final ReportADMITTING DIAGNOSIS: ANKLE SUBTALAR ARHTIRITIS surgery-rt ankle repair/htnCHEST [facility] - 04/06/2012 [facility] RESULT: INDICATION: Preop.COMPARISON: 09/10/2010FINDINGS: Frontal and lateral views of the chest demonstrateclear lungs bilaterally. The heart size is normal. There is nopneumothorax. Bony structures are age-appropriate.IMPRESSION: Negative chest.Dictated on workstation # [id number] BY: SUBHA GRIMALDO M.D., RADIOLOGISTELECTRONICALLY SIGNED BY: SUBHA GRIMALDO M.D., RADIOLOGISTD Apr 06 2012 6:23AT ELI: Apr 06 2012 6:25AS Apr 07 2012 11:50A Radiology Report from [id number] on 01/14/2 013 15:27:00 Final ReportADMITTING DIAGNOSIS: ANKLE SUBTALAR ARHTIRITIS subtalar arthritisANKLE 2 VIEWS RT - 04/06/2012 [facility] RESULT: INDICATION: Subtalar arthritis.FINDINGS: Portable image intensifier was provided for . Several images show resection of the distal fibula.There is also resection of the posterior one-half of the taluswith performance of an ankle arthrodesis. There is also asubtalar fusion.IMPRESSION: Postop changes of ankle and subtalar arthrodesis andpartial talar resection, as described.Dictated on workstation # [id number] BY: EKNAN RUEDA M.D., RADIOLOGISTELECTRONICALLY SIGNED BY: KENAN RUEDA M.D., RADIOLOGISTD Apr 06 2012 1:35PT IMS: Apr 06 2012 3:24PS Apr 06 2012 3:24P Radiology Report from [id number] on 013 14:41:00 Final ReportADMITTING DIAGNOSIS: ANKLE SUBTALAR ARHTIRITIS subtalar arthritisPORT IMAGE INTEN >1HR - 04/06/2012 [facility] RESULT: INDICATION: Subtalar arthritis.IMPRESSION: Portable image intensifier was utilized 4 hours 20 minutes insurgery.In: 0900Out: 1320Actual fluoro time: 3 minutes 13 secondsKv: 61Ma: 1.5Dictated on workstation # [id number] BY: RADIOLOGY PROCESSOR, ELECTRONICALLY SIGNED BY: RADIOLOGY PROCESSORSada Apr 07 2012 6:06PT PH : Apr 07 2012 6:07PS Apr 08 2012 2:39P Encounters ACCT No. Visit Date/Time Discharge Status Pt. Type Provider Facility Loc./Unit Complaint [id number] 04/06/2012 06:07:00 04/08/19 13 13:14:00 DIS Inpatient Domenic MUNIZ, Mehran Plummer [facility] F5SE [id number] 02/05/2019 08:46:00 020 00:01:00 DIS Outpatient JULEE YOUNG MD [facility] RAD KIDNEY STONE [id number] 02/11/2019 08:58:00 019 23:59:59 CLS Outpatient MAYITO REEVES DO [facility] LAB [id number] 02/05/2019 08:42:00 23:59:59 CLS Outpatient MAYITO REEVES DO [facility] LAB 10-I10,10-R73.03,10-G47.33,10-M19.071,10-E66.9 [id number] 09/10/2018 07:57:00 23:59:59 CLS Outpatient LEANDRO WELCH MD [facility] RAD RT UPPER OUTER BREAST D ENSITY [id number] 08/31/2018 14:58:00 23:59:59 CLS Outpatient LEANDRO WELCH MD [facility] RAD SCREENING [id number] 01/03/2018 13:52:00 16:13:00 DIS Emergency SHAILESH BROCK [facility] ER VOMITING [id number] 12/22/2017 00:52:00 23:59:59 CLS Preadmit JULEE YOUNG MD, V ia [facility] LAB N20.0 [id number] 11/14/2017 13:46:00 00:01:00 DIS Outpatient JULEE YOUNG MD [facility] LAB N20.0 [id number] 10/05/2017 18:25:00 14:35:00 DIS Inpatient LEANDRO WELCH MD [facility] 4TH L URETERAL STONE,HYDRON EPHROSIS [id number] 09/15/2017 12:36:00 23:59:59 CLS Outpatient JULEE YOUNG MD [facility] RAD STONES [id number] 09/01/2017 13:33:00 23:59:59 CLS Outpatient JULEE YOUNG MD [facility] RAD STONES [id number] 08/29/2017 04:19:00 07:06:00 DIS Emergency JACINTO SARAI BERRIOS [facility] ER POSS KIDNEY STONE [id number] 06/25/2017 10:39:00 23:59:59 CLS Outpatient MAYITO REEVES DO [facility] RAD RLQ PAIN [id number] 03/18/2017 09:32:00 017 23:59:59 CLS Outpatient LEANDRO WELCH MD [facility] RAD SCREENING MAMMO [id number] 06/06/2016 09:22:00 017 23:59:59 CLS Outpatient MAYITO REEVES DO [facility] LAB PRE-DIABETES [id number] 04/08/2016 09:09:00 017 23:59:59 CLS Outpatient LEANDRO WELCH MD [facility] RAD LT BREAST LUMP [id number] 04/01/2016 07:50:00 017 23:59:59 CLS Outpatient LEANDRO WELCH MD [facility] RAD LUMP LEFT UPPER OUTER B REAST [id number] 03/22/2016 11:15:00 016 23:59:59 CLS Outpatient LEANDRO WELCH MD [facility] RAD SCREENING [id number] 12/27/2015 20:00:00 016 22:47:00 DIS Emergency JACINTO DO, SARAI jones [facility] ER STREP THROAT [id number] 12/12/2014 08:08:00 015 11:07:00 DIS Outpatient JOSE G BALLARD MD [facility] SDC REFLUX; FAMILY HX COLO N CANCER; BLOOD IN STOOLS [id number] 12/08/2014 06:03:00 015 23:59:59 CLS Outpatient JOSE G BALLARD MD [facility] PREOP REFLUX; FAMILY HX COLO N CANCER;BLOOD IN STOOLS [id number] 08/19/2014 08:00:00 015 23:59:59 CLS Preadmit REEVES DO, MAYITO J [facility] CARD TACHYCARDIA,HYPOTENSIO N [id number] 05/20/2014 07:46:00 015 00:01:00 DIS Outpatient MAYITO REEVES DO [facility] CARD TACHYCARDIA,HYP OTENSION [id number] 07/27/2014 06:48:00 015 14:20:00 DIS Outpatient SCOT BRITO MD [facility] CATH ABNORMAL STRESS, CP,SOB,PALPITATIONS,TACHYCARDIA [id number] 07/20/2014 08:16:00 015 23:59:59 CLS Outpatient SCOT BRITO MD [facility] CARD CP,PALPITATIONS,KENYA [id number] 07/14/2014 06:45:00 015 23:59:59 CLS Outpatient MAYITO REEVES DO [facility] CARD SEE ORDER-CP/78 6.50 [id number] 03/04/2014 20:30:00 014 06:45:00 DIS Outpatient MAYITO REEVES DO [facility] SLEEP KENYA [id number] 03/02/2014 14:21:00 014 23:59:59 CLS Outpatient LEANDRO WELCH MD [facility] RAD LEFT BREAST DIMPLING [id number] 09/10/2019 13:33:[address] Emergency SUSANA JONES MD [facility] ER CHEST PAIN [id number] 05/07/2019 00:00:00 Document Registration [id number] 05/25/2014 14:27:00 Document Registration [id number] 06/08/2012 07:31:00 Document Registration [id number] 06/03/2012 07:47:00 Document Registration [id number] 02/24/2012 07:45:00 Document Registration [id number] 09/13/2011 09:41:00 Document Registration [id number] 08/23/2011 08:20:00 Document Registration [id number] 07/23/2011 15:13:00 Document Registration [id number] 06/17/2011 11:55:00 Document Registration [id number] 03/26/2011 16:31:00 Document Registration [id number] 03/06/2011 17:00:00 Document Registration [id number] 01/25/2011 08:42:00 Document Registration [id number] 12/20/2010 05:36:00 Document Registration [id number] 12/18/2010 09:09:00 Document Registration [id number] 12/13/2010 08:45:00 Document Registration [id number] 07/16/2016 00:00:00 Document Registration
--- OUTSIDE RECORDS SUMMARY | 2019-09-10 15:07 | XMS REPORT | Clinical Summary ---
Author Author [facility] Organization [facility] Address Unknown Phone Unavailable Care Team Providers Care Specialist Wound Care Name Role Phone Unverified, Unverified Md PCP Unavailable Source Comments Some departments are not documenting in the electronic medical record. If you d o not see the information that you expected, contact Release of Information in [facility] [employer] Information Management department at [phone] for further assistan ce in locating additional records.[facility] Allergies Not on File Medications Not on file Active Problems Not on file Social History Date Tobacco Use Types Packs/Day Years Used Never Assessed Sex Assigned at Date Recorded Not on file Industry Job Start Date Occupation Not on file Not on file Not on file Travel End Travel History Travel Start No recent travel history available. Last Filed Vital Signs Not on file Plan of Treatment Health Maintenance Due Date Last Done Comments HIV SCREENING 08/23/1991 DTAP/TDAP VACCINES (1 - 1994 Tdap) HEPATITIS C SCREENING 1994 PHYSICAL (COMPREHENSIVE) 1994 EXAM INFLUENZA VACCINE 12/23/2019 Results Not on filefrom Last 3 Months
--- NOTE | 2019-09-10 15:36 | NUR ---
CALLED TO PT ROOM WHERE PT WAS FOUND TO BE FLUSHED ET DIAPHORETIC. PT STATES, "I HAD ANOTHER EPISODE." PT REPORTS CHEST DISCOMFORT LAST 2-3 MINUTES. PROVIDER NOTIFIED
[2019-09-10] MEDS ORDERED: NITROGLYCERIN 0.4 MG SL TABS BTL 25'S SL ONE (15:40)
[2019-09-10] MEDS ORDERED: meTOprolol 5 MG/5 ML (LOPRESSOR) VIAL ONE (16:08)
[2019-09-10] MEDS ORDERED: meTOprolol 5 MG/5 ML (LOPRESSOR) VIAL IV ONE (16:15)
[2019-09-10] MEDS ORDERED: fentaNYL INJECTION 100 MCG/2 ML AMP IVP PRN (16:30)
[2019-09-10] MEDS ORDERED: HYDROcodone/APAP 7.5 MG/325 MG (LORTAB, LORCET PLUS) TABLET PO PRN (16:30)
[2019-09-10] MEDS ORDERED: NITROGLYCERIN 0.4 MG SL TABS BTL 25'S SL PRN (16:30)
[2019-09-10] MEDS ORDERED: CYCLOBENZAPRINE 10 MG (FLEXERIL) TAB PO PRN (16:30)
[2019-09-10] MEDS ORDERED: ACETAMINOPHEN 500 MG TAB (TYLENOL) PO PRN (16:30)
--- OUTSIDE RECORDS SUMMARY | 2019-09-10 16:56 | XMS REPORT ---
Author Author ADOR lettuce cutter ZOCKO [facility] [employer] [facility] [employer] Address [address] [place] [address] Care Team Providers Care Network Systems Administrator Name Role Phone REBEKAH MUNIZ, LEANDRO Thurman [...] information Mehran Sheth , Not Available sources.) (61785) Drug Allergy DOPamine metoclopramide 02-23-2006 - no [...] source.) iron complex iron complex [employer] (96895) Drug Allergy SITagliptin SITagliptin no information Kevon Sparks (1 source.) [employer] (83382) Medications No Information Problems Active Problems Problem Normalized Date Last Normalized Normalized Provider Fa cility Classification Problem(s) Recorded Problem Problem Sta tus Duration Abdominal pain Abdominal Episodic Active KOFI RODRIGUEZ Via (6 sources.) pain, MD [place] unspecified Hospital - site [place] Translations: (94836) [ UNSPECIFIED ABDOMINAL PAIN] NEGATED Acquired Episodic Active no name no informatio n no absence of information other (10 sources.) specified parts of digestive tract Translations: [ ACQUIRED ABSENCE OF OTHER ORGANS, FAMILY HX-GI MALIGNANCY, FAMILY HX OF ISCHEM HEART DIS AND OTH DI] Other upper Acute Episodic Active SARAI CASEY , DO Not Av ailable respiratory pharyngitis, (52495) infections (4 unspecified sources.) NEGATED Allergy status Episodic Active no name no info rmation no to other information (7 drugs, sources.) medicaments and biological substances status Translations: [ ALLERGY STATUS TO NARCOTIC AGENT STATUS, LATEX ALLERGY STATUS, ALLERGY STATUS TO OTH DRUG/MEDS/BIOL SUB] Other and Benign Episodic Active LEANDRO ALVAREZEHN , Not Avai lable unspecified neoplasm of MD (89218) benign left breast neoplasm (5 sources.) Gastrointestin Blood in stool Episodic Active no name no information al hemorrhage (3 sources.) Other Body mass Chronic Active [facility] Via nutritional; index (BMI) DO Tiffanie REEVES endocrine; and 33.0-33.9, Hospital - metabolic adult [place] disorders (1 (33644) source.) Calculus of Calculus of Episodic Active [...] atherosclerosi atherosclerosi s and other s of [place] heart disease coronary (3 sources.) artery Abdominal Diaphragmatic Episodic Active no name no infor mation hernia (3 hernia without sources.) mention of obstruction or gangrene Other Diarrhea, Episodic Active SHAILESH DELMY Not Availabl e gastrointestin unspecified (67807) al disorders (2 sources.) Other Encounter for Episodic Active LEANDRO SHOOKN , Not Available screening for screening (74252) suspected mammogram for conditions malignant (not mental [...] sources.) hemorrhoids without mention of complication Other alf Episodic Active SHAILESH BROCK Not Availabl e aftercare (2 (current) use (19162) sources.) of inhaled steroids Other alf Episodic Active no name no informati on aftercare (5 (current) use sources.) of systemic steroids Other Long-term Episodic Active no name no informati on aftercare (3 (current) use sources.) of other medications NEGATED Nausea Episodic Active no name no informatio n no Translations: information (7 [ NAUSEA WITH sources.) VOMITING, UNSPECIFIED] Other Obesity, Chronic Active MAYITO [facility] Via nutritional; unspecified DO Tiffanie REEVES endocrine; and Hospital - metabolic [place] disorders (1 (97352) source.) Residual Obstructive Chronic Active MAYITO [facility] Via codes; sleep apnea DO Tiffanie REEVES unclassified (adult) Hospital - (1 source.) (pediatric) [place] (49503) NEGATED Obstructive Chronic Active no name no informa tion no sleep apnea information (adult)(pediat (13 sources.) shanthi) Other bone Osteonecrosis Chronic Active Mehran Sheth , No t Available disease and due to MD (61991) musculoskeleta previous l deformities trauma, right (2 sources.) ankle Other female Other Episodic Active no name no informa tion genital noninflammator disorders (4 y disorders of sources.) ovary, fallopian tube and broad ligament Nonmalignant Other signs Episodic Active LEANDRO WELCH , No t Available breast and symptoms (01310) conditions (10 in breast sources.) Translations: [ UNSPECIFIED LUMP IN BREAST, SOLITARY CYST OF RIGHT BREAST] NEGATED Other no information Active MAYITO Not Avai lable no specified DO LEANDRO (37140) information (7 cardiac sources.) dysrhythmias Translations: [ [...] sources.) system Diabetes Prediabetes Episodic Active [facility]O [facility] Via mellitus DO Tiffanie REEVES without Hospital - complication [place] (1 source.) (78786) Esophageal Reflux Chronic Active no name no informati on disorders (3 esophagitis sources.) Osteoarthritis Secondary Chronic Active Mehran Sheth No t Available (3 sources.) osteoarthritis (09123) , right ankle and foot Translations: [ PRIMARY OSTEOARTHRITIS , RIGHT ANKLE AND ] Syncope (2 Syncope and Episodic Active SHAILESH DELMY Not Avail able sources.) collapse (92012) NEGATED Unspecified Chronic Active no name no informa tion no asthma, information (7 uncomplicated sources.) Essential Unspecified Chronic Active MAYITO [facility] Via hypertension essential DO Tiffanie REEVES (4 sources.) hypertension Hospital - Translations: [place] [ ESSENTIAL (81411) (PRIMARY) HYPERTENSION] NEGATED Unspecified Episodic Active no name no informa tion no gastritis and information (6 gastroduodenit sources.) is, without mention of hemorrhage Past or Other Problems Problem Normalized Date Last Normalized Normalized Provider Fa henok Classification Problem(s) Recorded Problem Problem Sta tus Duration Other Care involving Episodic Completed YOGI WARREN , No t Available aftercare (2 other physical (68337) sources.) therapy Other Enthesopathy Episodic Completed YOGI WARREN , Not Available connective of hip region (86311) tissue disease (2 sources.) Residual Other no information no information LEANDRO WELCH [facility] Via codes; specified MD [place] unclassified postprocedural Hospital - (1 source.) states [place] (72981) Other Pain in right Episodic Completed Mehran Sheth , Not Available non-traumatic ankle and (15928) joint joints of disorders (1 right foot source.) Diabetes Prediabetes no information no information MAYITO Not Available mellitus DO LEANDRO (05443) without complication (5 sources.) Procedures Procedure Normalized Procedure Procedure Result Performer Facility Date NEGATED EXTIRPATION OF MATTER no information no name n o information FROM LEFT URETER, [facility] ankle complete no information no name Not Avail able (69270) minimum 3 views Immunizations No Information Results Test Name Value Interpretation Reference Range Date Time Fa cility (Normalized) (Normalized) (Medline Reference) metabolic panel on null Protein no information (no code) Not Available [Mass/Vol] (78551) Vital Signs No Information Interventions No Information [...] no [facility] Via Tiffanie - procedure phone) [facility] 05-05-2019 (no phone) 09-10-2018 Patient encounter no [...] This clinical document has been generated using [employer] software that has been certified by the Office of the National Coordinator for Health Information Technology (ONC 15.99.04.3023.Diam.31.00.0.389205) and the National Committee for Speeder Worker (NCQA, as an eMeasure certified technology). FOR [...] BASED ON T HE PRIMARY CLINICAL RECORDS. [facility] [employer], [facility]. provides no warranty or guara ntee of the accuracy or completeness of information in this document.The followi ng information is based on time limited clinical information
--- OUTSIDE RECORDS SUMMARY | 2019-09-10 16:57 | XMS REPORT | Clinical Summary ---
Author Author [facility] Organization [facility] Address Unknown Phone Unavailable Care Team Providers Care Mechanical Field Engineer Name Role Phone Unverified, Unverified Md PCP Unavailable Source Comments Some departments are not documenting in the electronic medical record. If you d o not see the information that you expected, contact Release of Information in [facility] [employer] Information Management department at [phone] for further assistan ce in locating additional records.[facility] Allergies Not on File Medications Not [...]
--- OUTSIDE RECORDS SUMMARY | 2019-09-10 16:57 | XMS REPORT | Continuity of Care Document ---
Author Organization Unknown Address Unknown Phone Unavailable Allergies Active Description Code Type Severity Reaction Onset Reported/Identified Relationship to Patient Clinical Status Yes LATEX LATEX Drug Allergy null N/A Yes METAL METAL Drug Allergy null N/A Yes MORPHINE MORPHINE Drug Allergy [id number] N/A Yes REGLAN REGLAN Drug Allergy [id number] N/A Yes JANUVIA JANUVIA Drug Allergy N/A N/A Yes LATEX LATEX Drug Allergy N/A N/A Yes METAL METAL Drug Allergy N/A N/A Yes NIFEREX NIFEREX Drug Allergy N/A N/A Yes iron [id number] Drug Allergy Unknown N/A 02/23/[address] [id number] Dr ug Allergy Unknown N/A 02/23/2006 Yes ondansetron [id number] Drug Aller gy Mild Rash at IV site 02/25/2006 Yes morphine [id number] Drug Allergy Severe VOMITING 12/13/2010 Yes latex [id number] Drug Allergy Mild RASH 12/13/2010 Yes MORPHINE [...] MD Ot 414. 01 CORONARY ATHEROSCLEROSIS OF [place] CORON 07/27/2014 SCOT BRITO MD Ot 785. 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 2 HYDRONEPHROSIS [...] 23 OBSTRUCTIVE SLEEP APNEA (ADULT) (PEDIATR 01/03/2018 LAISHA MUNIZ, SCOT Thurman Ot 427. 89 CARDIAC DYSRHYTHMIAS NEC 01/03/2018 SCOT BRITO MD Ot 785. 1 PALPITATIONS 01/03/2018 SCOT BRITO MD Ot 786. 59 CHEST PAIN NEC 01/03/2018 MAYITO REEVES DO Ot 327.23 OBSTRUCTIVE SLEEP APNEA (ADULT) (PEDIATR 01/03/2018 LEANDRO BERROIS, MAYITO Thurman Ot 427.89 CARDIAC DYSRHYTHMIAS NEC 01/03/2018 MAYITO REEVES DO Ot 785.1 PALPITATIONS 01/03/2018 MAIYTO REEVES DO Ot 786.50 CHEST PAIN NOS [...] N20.0 CALCULUS OF KIDNEY 01/03/2018 DELMY SHAILESH PARAKEET RAISER Ot J45.909 UNSPECIFIED ASTHMA, UNCOMPLICATED 01/03/2018 DELMY, SHAILESH PARAKEET RAISER Ot R11.2 NAUSEA WITH VOMITING, UNSPECIFIED 01/03/2018 DELMY, SHAILESH PARAKEET RAISER Ot R19.7 DIARRHEA, UNSPECIFIED 01/03/2018 DELMY, SHAILESH PARAKEET RAISER Ot R55 SYNCOPE AND COLLAPSE 01/03/2018 DELMY, SHAILESH PARAKEET RAISER Ot Z79.51 SENIOR LIVING (CURRENT) USE OF INHALED STERO 01/03/2018 DELMY, SHAILESH PARAKEET RAISER Ot Z82.49 FAMILY HX OF ISCHEM HEART DIS AND OTH DI 01/03/2018 DELMY SHAILESH PARAKEET RAISER Ot Z87.19 PERSONAL HISTORY OF OTHER DISEASES OF TH 01/03/2018 DELMY SHAILESH PARAKEET RAISER Ot Z87.442 PERSONAL HISTORY OF URINARY CALCULI 01/03/2018 DELMY SHAILESH PARAKEET RAISER Ot Z88.5 ALLERGY STATUS TO NARCOTIC AGENT STATUS 01/03/2018 DELMY, SHAILESH PARAKEET RAISER Ot Z88.8 ALLERGY STATUS TO OT DRUG/MEDS/BIOL SUB 01/03/2018 DELMY SHAILESH PARAKEET RAISER Ot Z90.49 ACQUIRED ABSENCE OF OTHER SPECIFIED PART 01/03/2018 DELMY, SHAILESH PARAKEET RAISER Ot Z90.89 ACQUIRED ABSENCE OF OTHER ORGANS 01/03/2018 DELMY SHAILESH PARAKEET RAISER Ot Z91.040 LATEX ALLERGY STATUS 01/05/2018 DELMY, SHAILESH PARAKEET RAISER Ot J45.909 UNSPECIFIED ASTHMA, UNCOMPLICATED 01/05/2018 DELMY, SHAILESH PARAKEET RAISER Ot R11.2 NAUSEA WITH VOMITING, UNSPECIFIED 01/05/2018 DELMY, SHAILESH PARAKEET RAISER Ot R19.7 DIARRHEA, UNSPECIFIED 01/05/2018 DELMY, SHAILESH PARAKEET RAISER Ot R55 SYNCOPE AND COLLAPSE 01/05/2018 DELMY SHAILESH PARAKEET RAISER Ot Z79.51 SOLAR PV INSTALLER (CURRENT) USE OF INHALED STERO 01/05/2018 DELMY, SHAILESH PARAKEET RAISER Ot Z82.49 FAMILY HX OF ISCHEM HEART DIS AND OTH DI 01/05/2018 SHAILESH BROCKP Ot Z87.19 PERSONAL HISTORY OF OTHER DISEASES OF TH 01/05/2018 SHAILESH BROCK JOSE DE JESUS Ot Z87.442 PERSONAL HISTORY OF URINARY CALCULI 01/05/2018 SHAILESH BROCKP Ot Z88.5 ALLERGY STATUS TO NARCOTIC AGENT STATUS 01/05/2018 DELMY SHAILESH DELA CRUZ Ot Z88.8 ALLERGY STATUS TO OTH DRUG/MEDS/BIOL SUB 01/05/2018 DELMY SHAILESH DELA CRUZ Ot Z90.49 ACQUIRED ABSENCE OF OTHER SPECIFIED PART 01/05/2018 DELMY SHAILESH PARAKEET RAISER Ot Z90.89 ACQUIRED ABSENCE OF OTHER ORGANS [...] DANETTE Gonzalez FUSION Domenic MUNIZ, Mehran 04/06/2012 06205 Danette gonzalez 3V WB AP/Mort/Lat Fanfrancis, [facility] 07/16/2016 [id number] EX TIRPATION OF MATTER FROM LEFT URETER, 10/07/2017 50483 Danette gonzalez 3V WB AP/Mort/Lat Fanfrancis, [facility] 07/23/2018 Results Test Result Range Complete blood [...] NRG Blood erythrocyte morphology finding identification NORMAL [facility] Comprehensive metabolic panel - 12/27/15 [...] - 12/27/15 20:5 0 Bacterial throat culture [id number] NR FREE TEXT EXTERNAL PLUS NORMAL KATIE [...] culture - 10/05/17 18:34 Bacterial urine culture [id number] NRG COLONY COUNT . NRG FTX;REPORTABLE 30,000 CFU/ML NR FREE TEXT ENTRY 2 [facility] Sensitivity Panel - 10/05/17 18:34 Gentamicin [...] (mass/time) 1 316 % 600- 1800 Clinical environmental services project manager review of results Uric Acid Li thiasis [facility] Complete blood count (CBC) with [...] (mass/time) 1 449 % 600- 1800 Clinical environmental services project manager review of results See Below NRG STONE [...] PT < 10.0 <100.0 Radiology Report from [id number] on 11:53:00 Final ReportADMITTING DIAGNOSIS: ANKLE SUBTALAR ARHTIRITIS surgery-rt ankle repair/htnCHEST [facility] - 04/06/2012 [facility] RESULT: INDICATION: Preop.COMPARISON: 09/10/2010FINDINGS: Frontal and lateral views of the chest demonstrateclear lungs bilaterally. The heart size is normal. There is nopneumothorax. Bony structures are age-appropriate.IMPRESSION: Negative chest.Dictated on workstation # [id number] BY: SUBHA GRIMALDO M.D., RADIOLOGISTELECTRONICALLY SIGNED BY: SUBHA GRIMALDO M.D., RADIOLOGISTD Apr 06 2012 6:23AT ELI: Apr 06 2012 6:25AS Apr 07 2012 11:50A Radiology Report from [id number] on 01/14/2 013 15:27:00 Final ReportADMITTING DIAGNOSIS: ANKLE SUBTALAR ARHTIRITIS subtalar arthritisANKLE 2 VIEWS RT - 04/06/2012 [facility] RESULT: INDICATION: Subtalar arthritis.FINDINGS: Portable image intensifier was provided for . Several images show resection of the distal fibula.There is also resection of the posterior one-half of the taluswith performance of an ankle arthrodesis. There is also asubtalar fusion.IMPRESSION: Postop changes of ankle and subtalar arthrodesis andpartial talar resection, as described.Dictated on workstation # [id number] BY: KENAN RUEDA M.D., RADIOLOGISTELECTRONICALLY SIGNED BY: KENAN RUEDA M.D., RADIOLOGISTD Apr 06 2012 1:35PT IMS: Apr 06 2012 3:24PS Apr 06 2012 3:24P Radiology Report from [id number] on 013 14:41:00 Final ReportADMITTING DIAGNOSIS: ANKLE SUBTALAR ARHTIRITIS subtalar arthritisPORT IMAGE INTEN >1HR - 04/06/2012 [facility] RESULT: INDICATION: Subtalar arthritis.IMPRESSION: Portable image intensifier was utilized 4 hours 20 minutes insurgery.In: 0900Out: 1320Actual fluoro time: 3 minutes 13 secondsKv: 61Ma: 1.5Dictated on workstation # [id number] BY: RADIOLOGY PROCESSOR, ELECTRONICALLY SIGNED BY: RADIOLOGY PROCESSORSada Apr 07 2012 6:06PT PH : Apr 07 2012 6:07PS Apr 08 2012 2:39P Encounters ACCT No. Visit Date/Time Discharge Status Pt. Type Provider Facility Loc./Unit Complaint [id number] 04/06/2012 06:07:00 04/08/19 13 13:14:00 DIS Inpatient Domenic MUNIZ, Mehran [facility] F5SE [id number] 02/05/2019 08:46:00 020 00:01:00 DIS Outpatient JULEE YOUNG MD [facility] RAD KIDNEY STONE [id number] 02/11/2019 08:58:00 019 23:59:59 CLS Outpatient MAYITO REEVES DO [facility] LAB [id number] 02/05/2019 08:42:00 23:59:59 CLS Outpatient MAYITO REEVES DO [facility] LAB 10-I10,10-R73.03,10-G47.33,10-M19.071,10-E66.9 [id number] 09/10/2018 07:57:00 23:59:59 CLS Outpatient LEANDRO WELCH MD [facility] RAD RT UPPER OUTER BREAST D ENSITY [id number] 08/31/2018 14:58:00 23:59:59 CLS Outpatient LEANDRO WELCH MD [facility] RAD SCREENING [id number] 01/03/2018 13:52:00 16:13:00 DIS Emergency SHAILESH BROCK [facility] ER VOMITING [id number] 12/22/2017 00:52:00 23:59:59 CLS Preadmit JULEE YOUNG MD, [facility] LAB N20.0 [id number] 11/14/2017 13:46:00 00:01:00 DIS Outpatient JULEE YOUNG MD [facility] LAB N20.0 [id number] 10/05/2017 18:25:00 14:35:00 DIS Inpatient LEANDRO WELCH MD [facility] 4TH L URETERAL STONE,HYDRON EPHROSIS [id number] 09/15/2017 12:36:00 23:59:59 CLS Outpatient JULEE YOUNG MD [facility] RAD STONES [id number] 09/01/2017 13:33:00 23:59:59 CLS Outpatient JULEE YOUNG MD [facility] RAD STONES [id number] 08/29/2017 04:19:00 07:06:00 DIS Emergency JACINTO SARAI BERRIOS [facility] ER POSS KIDNEY STONE [id number] 06/25/2017 10:39:00 23:59:59 CLS Outpatient MAYITO REEVES DO [facility] RAD RLQ PAIN [id number] 03/18/2017 09:32:00 017 23:59:59 CLS Outpatient LEANDRO WELCH MD [facility] RAD SCREENING MAMMO [id number] 06/06/2016 09:22:00 017 23:59:59 CLS Outpatient MAYITO REEVES DO [facility] LAB PRE-DIABETES [id number] 04/08/2016 09:09:00 017 23:59:59 CLS Outpatient LEANDRO WELCH MD [facility] RAD LT BREAST LUMP [id number] 04/01/2016 07:50:00 017 23:59:59 CLS Outpatient LEANDRO WELCH MD [facility] RAD LUMP LEFT UPPER OUTER B REAST [id number] 03/22/2016 11:15:00 016 23:59:59 CLS Outpatient LEANDRO WELCH MD [facility] RAD SCREENING [id number] 12/27/2015 20:00:00 016 22:47:00 DIS Emergency JACINTO DO, SARAI jones [facility] ER STREP THROAT [id number] 12/12/2014 08:08:00 015 11:07:00 DIS Outpatient JOSE G BALLARD MD [facility] SDC REFLUX; FAMILY HX COLO N CANCER; BLOOD IN STOOLS [id number] 12/08/2014 06:03:00 015 23:59:59 CLS Outpatient JOSE G BALLARD MD [facility] PREOP REFLUX; FAMILY HX COLO N CANCER;BLOOD IN STOOLS [id number] 08/19/2014 08:00:00 015 23:59:59 CLS Preadmit REEVES DO, MAYITO J [facility] CARD TACHYCARDIA,HYPOTENSIO N [id number] 05/20/2014 07:46:00 015 00:01:00 DIS Outpatient MAYITO REEVES DO [facility] CARD TACHYCARDIA,HYP OTENSION [id number] 07/27/2014 06:48:00 015 14:20:00 DIS Outpatient SCOT BRITO MD [facility] CATH ABNORMAL STRESS, CP,SOB,PALPITATIONS,TACHYCARDIA [id number] 07/20/2014 08:16:00 015 23:59:59 CLS Outpatient SCOT BRITO MD [facility] CARD CP,PALPITATIONS,KENYA [id number] 07/14/2014 06:45:00 015 23:59:59 CLS Outpatient MAYITO REEVES DO [facility] CARD SEE ORDER-CP/78 6.50 [id number] 03/04/2014 20:30:00 014 06:45:00 DIS Outpatient MAYITO REEVES DO [facility] SLEEP KENYA [id number] 03/02/2014 14:21:00 014 23:59:59 CLS Outpatient LEANDRO WELCH MD [facility] RAD LEFT BREAST DIMPLING [id number] 09/10/2019 15:20:[address] Inpatient ADILENE SHETTY MD [facility] 4TH ACS WITH ELEVATED TROPONIN [id number] 05/07/2019 00:00:00 Document Registration [id number] 05/25/2014 14:27:00 Document Registration [id number] 06/08/2012 07:31:00 Document Registration [id number] 06/03/2012 07:47:00 Document Registration [id number] 02/24/2012 07:45:00 Document Registration [id number] 09/13/2011 09:41:00 Document Registration [id number] 08/23/2011 08:20:00 Document Registration [id number] 07/23/2011 15:13:00 Document Registration [id number] 06/17/2011 11:55:00 Document Registration [id number] 03/26/2011 16:31:00 Document Registration [id number] 03/06/2011 17:00:00 Document Registration [id number] 01/25/2011 08:42:00 Document Registration [id number] 12/20/2010 05:36:00 Document Registration [id number] 12/18/2010 09:09:00 Document Registration [id number] 12/13/2010 08:45:00 Document Registration [id number] 07/16/2016 00:00:00 Document Registration
--- NOTE | 2019-09-10 17:07 | NUR ---
ELEANOR LINARES Dell admitted to room 423-1, with an admitting diagnosis of Chest pain, on 09/10/19 from [place] ED via wheelchair, accompanied by staff. ELEANOR LINARES introduced to surroundings, call light, bed controls, phone, TV, temperature control, lights, meal times, smoking policy, visitor policy, side rail policy, bathrooms and showers. Patient Rights given to patient in the handbook. ELEANOR LINARES verbalizes understanding that [facility] is not responsible for the loss or damage to any personal effects or valuables that are kept in the patients possession during their hospitalization. The following Patient Care Plans were discussed with the patient: Discharge Planning, pain management, dehydration, and medications. ELEANOR LINARES verbalizes understanding of Interdisciplinary Patient Education. Patient and/or family were informed about the Rapid Response Team and its purpose.
--- NOTE | 2019-09-10 17:27 | History & Physical-Hospitalist ---
History of Present Illness HPI/Chief Complaint Pt is a 44yoCF with a PMH of HTN who presented to the ER due to chest pain. 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 She states she was nauseated, diaphoretic and had pain down her left arm. She immediately turned her car around and drove back to the hospital for evaluation. She had another episode in the ER and noticed her heart rate went up to the 130s but resolved very quickly. She is currently feeling well since getting Nitro and Lopressor in the ER. She did have a slight troponin elevation at 0.039 and is being admitted for observation. She is being swabbed for COVID19 due to chest pain and occupational exposure. Source: patient Exam Limitations: no limitations Date Seen 09/10/19 Time Seen by a Provider: 17:27 Attending Physician Adilene Basurto MD PCP Yuriy Davis MD Referring Physician Date of Admission Sep 10, 2019 at 15:20 Home Medications & Allergies Home Medications Reviewed patient Home Medication Reconciliation performed by pharmacy medication reconciliations electrical and instrument technician and/or nursing. Patients Allergies have been reviewed. Allergies Allergies Coded Allergies morphine (Unverified Allergy, Severe, VOMITING, 12/13/10) latex (Unverified Allergy, Mild, RASH, 12/13/10) ondansetron (Unverified Allergy, Mild, Rash at IV site, 02/25/06) iron (Verified Allergy, Unknown, 02/23/06) metoclopramide (Verified Allergy, Unknown, 02/23/06) Past Vgiaxbw-Zhynbm-Cgjrfk Hx Past Med/Social Hx: Reviewed Nursing Past Med/Soc Hx Patient Social History Marrital Status: Employed/Student: employed Alcohol Use: Denies Use Recreational Drug Use: No Smoking Status: Never a Smoker 2nd Hand Smoke Exposure: No Recent Foreign Travel: No Contact w/other who traveled: No Recent Hopitalizations: No Recent Infectious Disease Expo: No Immunizations Up To Date Date of Influenza Vaccine: Jan 02, 2012 Seasonal Allergies Seasonal Allergies: Yes Past Medical History Surgeries: Appendectomy, Gallbladder, Orthopedic, Renal Cardiac: Hypertension Reproductive: Yes Sexually Transmitted Disease: No Female Reproductive Disorders: Ovarian Cyst Genitourinary: Kidney Stones Gastrointestinal: Colitis, Esophagitis, Gall Bladder Disease Musculoskeletal: Fractures History of Blood Disorders: No Adverse Reaction to Blood Banuelos: No Family History Reviewed Nursing Family Hx AORTIC VALVE REPLACEMENT 19 FATHER G8 SISTER FH: congestive heart failure G8 SISTER Bicuspid aortic valve in two siblings Review of Systems Constitutional: No chills; diaphoresis; No fever EENTM: no symptoms reported Respiratory: No cough, No short of breath Cardiovascular: chest pain; No edema; palpitations Gastrointestinal: No abdominal pain; nausea; No vomiting Genitourinary: no symptoms reported Musculoskeletal: no symptoms reported Skin: no symptoms reported Psychiatric/Neurological: No Symptoms Reported Physical Exam Physical Exam Vital Signs Vital Signs - First Documented 09/10/19 13:25 Temp 36.8 Pulse 106 Resp 20 B/P (MAP) 140/85 (103) Pulse Ox 100 O2 Delivery Room Air Capillary Refill : Less Than 3 Seconds Height, Weight, BMI Height: 5'3.00" Weight: 206lbs. 0.0oz. 93.251254wi; 34.00 BMI Method:Stated General Appearance: No Apparent Distress, WD/WN HEENT: Moist Mucous Membranes; No Scleral Icterus (L), No Scleral Icterus (R) Neck: Full Range of Motion, Supple; No Thyromegaly Respiratory: Lungs Clear, No Accessory Muscle Use, No Respiratory Distress Cardiovascular: Regular Rate, Rhythm, No JVD, No Murmur Gastrointestinal: Normal Bowel Sounds, Non Tender, Soft Extremity: No Calf Tenderness, No Pedal Edema Neurologic/Psychiatric: Alert, Oriented x3, Normal Mood/Affect; No Aphasia, No Facial Droop Results Results/Procedures Labs Laboratory Tests 09/10/19 13:50 Patient resulted labs reviewed. Imaging [facility] [place] [place] NAME: ELEANOR LINARES [facility] REC#: [id number] PT STATUS: ADM Salima : 1975 PHYSICIAN: SUSANA JONES MD ADMIT DATE: 09/10/19 Signed Date of Exam:09/10/19 CHEST 1 VIEW, AP/PA ONLY PATIENT HISTORY: Chest pain. TECHNIQUE: Single frontal view of the chest. COMPARISON: 08/29/2017 FINDINGS: The lung volumes are normal. No focal consolidation is seen. No large pleural effusion or pneumothorax is seen. The cardiomediastinal silhouette is normal in size and contour. No acute osseous abnormality is seen. IMPRESSION: No acute pulmonary abnormality seen. Dictated by: Dictated on workstation # [id number] Dict: 09/10/19 1429 Trans: 09/10/19 1649 [facility] [id number] Interpreted by: KRISHNA FELICIANO MD Electronically signed by: KRISHNA FELICIANO MD 09/10/19 1072 Assessment/Plan Admission Diagnosis Chest Pain Admission Status: Observation Assessment and Plan Chest Pain Elevated troponin Troponin 0.039 in ER Will trend EKG with no acute changes history of cardiac cath in 2014 with no significant obstructive disease I'm concerned for a tachyarrhythmia cause symptoms and troponin leak, will monitor on tele Appears to have worn a holter monitor in 2018 without any findings Cardiology consulted, appreciate recs COVID19 pending HTN Normally takes HCTZ BP well controlled with Lopressor and Nitro in the ER- will monitor Clinical Quality Measures DVT/VTE Risk/Contraindication: Risk Factor Score Per Nursin RFS Level Per Nursing on Admit: 2=Moderate ADILENE BASURTO MD Sep 10, 2019 17:27
[2019-09-10] MEDS ORDERED: ANTACID SUSP 30 ML UDC (MYLANTA) PO PRN (21:15)
[2019-09-10] MEDS ORDERED: MELATONIN 3 MG TABLET PO PRN (21:15)
[2019-09-10] MEDS ORDERED: MILK OF MAGNESIA 400 MG/5 ML 30 ML UDC PO PRN (21:15)
[2019-09-10] MEDS ORDERED: BENZONATATE 100 MG (TESSALON) CAPSULE PO PRN (21:15)
[2019-09-11] VITALS: BP 123/69
[2019-09-11 02:46] LABS: BASOPHILS % (AUTO) 0 % (0-10); EOSINOPHILS # (AUTO) 0.1 10^3/uL (0.0-0.3); EOSINOPHILS % (AUTO) 2 % (0-10); HEMATOCRIT 36 % (35-52); HEMOGLOBIN 11.9 G/DL (11.5-16.0); LYMPHOCYTES # (AUTO) 2.1 X 10^3 (1.0-4.0); LYMPHOCYTES % (AUTO) 25 % (12-44); MEAN CORPUSCULAR HEMOGLOBIN 29 PG (25-34); MEAN CORPUSCULAR HGB CONC 33 G/DL (32-36); MEAN CORPUSCULAR VOLUME 86 FL (80-99); MEAN PLATELET VOLUME 9.9 FL (7.4-10.4); MONOCYTES # (AUTO) 0.8 X 10^3 (0.0-1.0); MONOCYTES % (AUTO) 10 % (0-12); NEUTROPHILS # (AUTO) 5.2 X 10^3 (1.8-7.8); NEUTROPHILS % (AUTO) 63 % (42-75); PLATELET COUNT 240 10^3/uL (130-400); RED CELL DISTRIBUTION WIDTH 13.9 % (10.0-14.5); WHITE BLOOD COUNT 8.2 10^3/uL (4.3-11.0)
[2019-09-11] MEDS: PROMETHAZINE 25 MG (PHENERGAN) TAB PO PRN ×2 (02:50→08:05)
[2019-09-11 03:12] VITALS: BP 114/58
[2019-09-11 03:17] LABS: ALBUMIN 3.7 GM/DL (3.2-4.5); CHLORIDE 104 MMOL/L (98-107); POTASSIUM 3.7 MMOL/L (3.6-5.0); SODIUM 139 MMOL/L (135-145)
[2019-09-11 03:19] LABS: TRIGLYCERIDES 116 MG/DL (<150); VLDL CHOLESTEROL 23 MG/DL (5-40)
[2019-09-11 03:20] LABS: GLUCOSE 108 MG/DL (70-105); TOTAL PROTEIN 6.5 GM/DL (6.4-8.2)
[2019-09-11 03:21] LABS: BILIRUBIN,TOTAL 0.3 MG/DL (0.1-1.0); CARBON DIOXIDE 26 MMOL/L (21-32)
[2019-09-11 03:23] LABS: ALKALINE PHOSPHATASE 61 U/L (40-136); GFR ESTIMATED > 60
[2019-09-11 03:24] LABS: BUN/CREATININE RATIO 18; CHOLESTEROL 165 MG/DL (< 200)
[2019-09-11 03:25] LABS: HDL CHOLESTEROL 41 MG/DL (40-60)
[2019-09-11 03:26] LABS: ALANINE AMINOTRANSFERASE 10 U/L (0-55)
[2019-09-11 07:58] VITALS: BP 129/69
[2019-09-11] MEDS ORDERED: ASPIRIN E.C. 81 MG (ECOTRIN) TAB PO SCH (09:00)
--- NOTE | 2019-09-11 11:07 | Consultation-Cardiology ---
HPI-Cardiology Cardiology Consultation Date of Consultation 09/11/19 Date of Admission Time Seen by Provider: 17:27 Indication: chest pain HPI 44-year-old lady with history of palpitation the past. Had an episode of chest pain described as dull achiness on the left side radiating to the left neck and jaw and left shoulder and arm. Associated with diaphoresis and feeling lighth eaded came into the emergency room and evaluated. Initial set of troponin was elevated the second 2 sets were normal. While she was in the ER she had an episode of supraventricular tachycardia with a heart rate 130. Patient was given 5 mg of IV Lopressor and reported feeling better. Since the injection of Lopressor she has been feeling well. No further episodes were reported. Reporting occasional episode of palpitation and feeling anxious. Blood pressure is borderline elevated Home Medications & Allergies Allergies: Coded Allergies: morphine (Unverified Allergy, Severe, VOMITING, 12/13/10) latex (Unverified Allergy, Mild, RASH, 12/13/10) ondansetron (Unverified Allergy, Mild, Rash at IV site, 02/25/06) iron (Verified Allergy, Unknown, 02/23/06) metoclopramide (Verified Allergy, Unknown, 02/23/06) Home Medication List Reviewed: Yes [id number] Hx Patient Social History Marital Status: Employed/Student: employed Alcohol Use: Denies Use Recreational Drug Use: No Smoking Status: Never a Smoker 2nd Hand Smoke Exposure: No Recent Foreign Travel: No Recent Infectious Disease Expo: No Recent Hopitalizations: No Immunizations Up To Date Date of Influenza Vaccine: Jan 02, 2012 Past Medical History Discussed below Family Medical History Family History: AORTIC VALVE REPLACEMENT 19 FATHER G8 SISTER FH: congestive heart failure G8 SISTER Review of Systems-General Review of Systems Constitutional: No no symptoms reported; see HPI; No chills; diaphoresis; No dizziness, No fever, No malaise, No weakness, No weight gain, No weight loss, No other EENTM: see HPI, no symptoms reported Respiratory: see HPI; No cough, No short of breath Cardiovascular: see HPI, chest pain; No edema; palpitations Gastrointestinal: see HPI; No abdominal pain; nausea; No vomiting Genitourinary: no symptoms reported, see HPI Musculoskeletal: no symptoms reported, see HPI Skin: no symptoms reported, see HPI Psychiatric/Neurological: No Symptoms Reported, See HPI All Other Systems Reviewed Negative Unless Noted: Yes Reviewed Test Results Reviewed Test Results Lab Laboratory Tests Test 09/10/19 13:50 09/10/19 14:20 09/10/19 20:00 09/11/19 02:20 Range/Units White Blood Count 9.9 8.2 4.3-11.0 10^3/uL Red Blood Count 4.59 4.15 L 4.35-5.85 10^6/uL Hemoglobin 13.0 11.9 11.5-16.0 G/DL Hematocrit 39 36 35-52 % Mean Corpuscular Volume 85 86 80-99 FL Mean Corpuscular Hemoglobin 28 29 25-34 PG Mean Corpuscular Hemoglobin Concent 33 33 32-36 G/DL Red Cell Distribution Width 14.1 13.9 10.0-14.5 % Platelet Count 282 240 130-400 10^3/uL Mean Platelet Volume 10.3 9.9 7.4-10.4 FL Neutrophils (%) (Auto) 77 H 63 42-75 % Lymphocytes (%) (Auto) 17 25 12-44 % Monocytes (%) (Auto) 5 10 0-12 % Eosinophils (%) (Auto) 1 2 0-10 % Basophils (%) (Auto) 0 0 0-10 % Neutrophils # (Auto) 7.6 5.2 1.8-7.8 X 10^3 Lymphocytes # (Auto) 1.7 2.1 1.0-4.0 X 10^3 Monocytes # (Auto) 0.5 0.8 0.0-1.0 X 10^3 Eosinophils # (Auto) 0.1 0.1 0.0-0.3 10^3/uL Basophils # (Auto) 0.0 0.0 0.0-0.1 10^3/uL Prothrombin Time 12.9 12.2-14.7 SEC INR Comment 0.9 0.8-1.4 Activated Partial Thromboplast Time 28 24-35 SEC D-Dimer < 0.27 0.00-0.49 UG/ML Sodium Level 137 139 135-145 MMOL/L Potassium Level 3.6 3.7 3.6-5.0 MMOL/L Chloride Level 101 104 98-107 MMOL/L Carbon Dioxide Level 25 26 21-32 MMOL/L Anion Gap 11 9 5-14 MMOL/L Blood Urea Nitrogen 12 14 7-18 MG/DL Creatinine 0.95 0.80 0.60-1.30 MG/DL Estimat Glomerular Filtration Rate > 60 > 60 BUN/Creatinine Ratio 13 18 Glucose Level 100 108 H 70-105 MG/DL Calcium Level 9.5 9.0 8.5-10.1 MG/DL Corrected Calcium 9.1 9.2 8.5-10.1 MG/DL Magnesium Level 1.9 1.6-2.4 MG/DL Total Bilirubin 0.4 0.3 0.1-1.0 MG/DL Aspartate Amino Transf (AST/SGOT) 13 11 5-34 U/L Alanine Aminotransferase (ALT/SGPT) 13 10 0-55 U/L Alkaline Phosphatase 73 61 40-136 U/L Myoglobin 25.1 10.0-92.0 NG/ML Troponin I 0.039 H < 0.028 < 0.028 <0.028 NG/ML B-Type Natriuretic Peptide < 10.0 <100.0 PG/ML Total Protein 7.9 6.5 6.4-8.2 GM/DL Albumin 4.5 3.7 3.2-4.5 GM/DL Lipase 26 8-78 U/L Thyroid Stimulating Hormone (TSH) 1.05 0.35-4.94 UIU/ML Triglycerides Level 116 <150 MG/DL Cholesterol Level 165 < 200 MG/DL LDL Cholesterol Direct 115 1-129 MG/DL VLDL Cholesterol 23 5-40 MG/DL HDL Cholesterol 41 40-60 MG/DL Physical Exam Physical Exam Vital Signs Vital Signs - First Documented 09/10/19 13:25 Temp 36.8 Pulse 106 Resp 20 B/P (MAP) 140/85 (103) Pulse Ox 100 O2 Delivery Room Air Capillary Refill : Less Than 3 Seconds Height, Weight, BMI Height: 5'3.00" Weight: 206lbs. 0.0oz. 93.496457zt; 34.00 BMI Method:Stated General Appearance: No Apparent Distress, WD/WN Eyes: Bilateral Eye Normal Inspection, Bilateral Eye PERRL, Bilateral Eye EOMI HEENT: Moist Mucous Membranes; No Scleral Icterus (L), No Scleral Icterus (R) Neck: Full Range of Motion, Supple; No Thyromegaly Respiratory: Lungs Clear, No Accessory Muscle Use, No Respiratory Distress Cardiovascular: Regular Rate, Rhythm, No JVD, No Murmur Gastrointestinal: Normal Bowel Sounds, Non Tender, Soft Back: Normal Inspection, No CVA Tenderness, No Vertebral Tenderness Extremity: No Calf Tenderness, No Pedal Edema Neurologic/Psychiatric: Alert, Oriented x3, Normal Mood/Affect; No Aphasia, No Facial Droop Skin: Normal Color, Warm/Dry Lymphatic: No Adenopathy A/P-Cardiology Admission Diagnosis Chest pain Palpitation Dizziness Supraventricular tachycardia Assessment/Plan Chest pain nonspecific etiology, resembling angina, chronic enzymes were negative, first set was mildly elevated the second 2 sets were normal. EKG did not show any changes. I recommend monitoring, we can consider doing stress test as an outpatient. Palpitation, supraventricular tachycardia, had an episode of SVT in the emergency room. Responded to IV Lopressor. I recommend starting Toprol-XL 25 mg daily, we had long discussion about limiting caffeine intake. Hypertension, maintained on hydrochlorothiazide. Adding Toprol and monitoring blood pressure History of kidney stones COVID testing pending Clinical Quality Measures DVT/VTE Risk/Contraindication: Risk Factor Score Per Nursin RFS Level Per Nursing on Admit: 2=Moderate SCOT BRITO MD Sep 11, 2019 11:07 am
[2019-09-11] MEDS ORDERED: METO-351 PO (11:09)
--- NOTE | 2019-09-11 12:21 | Discharge Summary ---
Diagnosis/Chief Complaint Date of Admission Sep 10, 2019 at 15:20 Date of Discharge Discharge Date: Sep 11, 2019 Admission Diagnosis Chest Pain Primary Care Yuriy Davis MD Discharge Diagnosis SVT Discharge Summary Procedures/Consulations Dr Ramirez- Cardiology Discharge Physical Exam Allergies: Coded Allergies: morphine (Unverified Allergy, Severe, VOMITING, 12/13/10) latex (Unverified Allergy, Mild, RASH, 12/13/10) ondansetron (Unverified Allergy, Mild, Rash at IV site, 02/25/06) iron (Verified Allergy, Unknown, 02/23/06) metoclopramide (Verified Allergy, Unknown, 02/23/06) Vitals & I&Os Vital Signs Date Time Temp Pulse Resp B/P (MAP) Pulse Ox O2 Delivery O2 Flow Rate FiO2 09/11/19 07:58 36.8 96 129/69 (89) 96 Room Air 09/10/19 19:01 20 General Appearance: No Apparent Distress, WD/WN Cardiovascular: Regular Rate, Rhythm, No Murmur Gastrointestinal: Normal Bowel Sounds, Non Tender, Soft Neurologic/Psychiatric: Alert, Oriented x3 Hospital Course Pt was admitted due to tachycardia and elevated troponin. Tropinin was trended and was negative. Cardiology was consulted and felt symptoms to be related to SVT. She was started on metoprolol and felt much better. This will be continued as an outpatient. She is to follow up with Dr Ramirez in 2-4 week and with her PCP Dr Davis in the next 1-2 weeks. She is currently COVID pending so will remain in isolation upon discharge until results are available. She was discharged home in improved condition. Labs (last 24 hrs) Laboratory Tests 09/10/19 13:50: White Blood Count 9.9, Red Blood Count 4.59, Hemoglobin 13.0, Hematocrit 39, Mean Corpuscular Volume 85, Mean Corpuscular Hemoglobin 28, Mean Corpuscular Hemoglobin Concent 33, Red Cell Distribution Width 14.1, Platelet Count 282, Mean Platelet Volume 10.3, Neutrophils (%) (Auto) 77H, Lymphocytes (%) (Auto) 17, Monocytes (%) (Auto) 5, Eosinophils (%) (Auto) 1, Basophils (%) (Auto) 0, Neutrophils # (Auto) 7.6, Lymphocytes # (Auto) 1.7, Monocytes # (Auto) 0.5, Eosinophils # (Auto) 0.1, Basophils # (Auto) 0.0, Prothrombin Time 12.9, INR Comment 0.9, Activated Partial Thromboplast Time 28, D-Dimer < 0.27, Sodium L evel 137, Potassium Level 3.6, Chloride Level 101, Carbon Dioxide Level 25, Anion Gap 11, Blood Urea Nitrogen 12, Creatinine 0.95, Estimat Glomerular Filtration Rate > 60, BUN/Creatinine Ratio 13, Glucose Level 100, Calcium Level 9.5, Corrected Calcium 9.1, Magnesium Level 1.9, Total Bilirubin 0.4, Aspartate Amino Transf (AST/SGOT) 13, Alanine Aminotransferase (ALT/SGPT) 13, Alkaline Phosphatase 73, Myoglobin 25.1, Troponin I 0.039H, B-Type Natriuretic Peptide < 10.0, Total Protein 7.9, Albumin 4.5, Lipase 26, Thyroid Stimulating Hormone (TSH) 1.05 09/10/19 14:20: Coronavirus (COVID-19)(PCR) Negative 09/10/19 20:00: Troponin I < 0.028 09/11/19 02:20: White Blood Count 8.2, Red Blood Count 4.15L, Hemoglobin 11.9, Hematocrit 36, Mean Corpuscular Volume 86, Mean Corpuscular Hemoglobin 29, Mean Corpuscular Hemoglobin Concent 33, Red Cell Distribution Width 13.9, Platelet Count 240, Mean Platelet Volume 9.9, Neutrophils (%) (Auto) 63, Lymphocytes (%) (Auto) 25, Monocytes (%) (Auto) 10, Eosinophils (%) (Auto) 2, Basophils (%) (Auto) 0, Ally trophils # (Auto) 5.2, Lymphocytes # (Auto) 2.1, Monocytes # (Auto) 0.8, Eosinophils # (Auto) 0.1, Basophils # (Auto) 0.0, Sodium Level 139, Potassium Level 3.7, Chloride Level 104, Carbon Dioxide Level 26, Anion Gap 9, Blood Urea Nitrogen 14, Creatinine 0.80, Estimat Glomerular Filtration Rate > 60, BUN/Creatinine Ratio 18, Glucose Level 108H, Calcium Level 9.0, Corrected Calcium 9.2, Total Bilirubin 0.3, Aspartate Amino Transf (AST/SGOT) 11, Alanine Aminotransferase (ALT/SGPT) 10, Alkaline Phosphatase 61, Troponin I < 0.028, Total Protein 6.5, Albumin 3.7, Triglycerides Level 116, Cholesterol Level 165, LDL Cholesterol Direct 115, VLDL Cholesterol 23, HDL Cholesterol 41 Patient resulted labs reviewed. Discussion & Recommendations Discharge Planning: <30 minutes discharge planning Discharge Home Medications: Active Scripts Active Toprol Xl (Metoprolol Succinate) 25 Mg Tab.er.24h 25 Mg PO DAILY Lomotil 2.5-0.025 mg Tablet (Diphenoxylate HCl/Atropine) 1 Each Tablet 1 Each PO Q4H Promethazine Tablet (Promethazine HCl) 25 Mg Tablet 25 Mg PO Q6H PRN Reported Ibuprofen 600 Mg Tablet 600 Mg PO Q6H PRN Cyclobenzaprine HCl 10 Mg Tablet 10 Mg PO TID PRN Proair Hfa (Albuterol Sulfate) 1 Puff Puff 2 Puff IH Q4H PRN 1 PUFF = 90 MCG Instructions to patient/family Please see electronic discharge instructions given to patient. Clinical Quality Measures DVT/VTE Risk/Contraindication: Risk Factor Score Per Nursin RFS Level Per Nursing on Admit: 2=Moderate ADILENE SHETTY MD Sep 11, 2019 12:21
== END 2019-09-11 11:51 | disposition home or self-care (01) ==
LOC: EDUNIT# 13:32 → ER 13:33 → 4TH 15:20 → UNDOADMOB 15:20 → 4TH 15:34 → UNDODISOB 09-11 12:30
PROVIDERS: ADMIT Family Medicine; ATTEND Family Medicine
DX: R07.9 Chest pain, unspecified (principal); I47.1 Supraventricular tachycardia; Z88.5 Allergy status to narcotic agent; I10 Essential (primary) hypertension; K21.9 Gastro-esophageal reflux disease without esophagitis; Z91.040 Latex allergy status; Z88.8 Allergy status to other drugs, medicaments and biological substances; Z79.899 Other long term (current) drug therapy; Z79.891 Long term (current) use of opiate analgesic
CPT/HCPCS: 71045; 80053 ×2; 80061; 83690; 83735; 83874; 83880; 84443; 84484 ×2; 85025 ×2; 85379; 85610; 85730; 93005 ×2; 93041; 99284; G0378; U0002; 36415; 87635

== ENCOUNTER → 2019-09-22 | Outpatient (CLI) | payer OTHER ==
[~2019-09-22] VITALS: Ht 162 cm; Wt 89.0 kg
[~2019-09-22] MED LIST changes: +CATHETER FLUSH 10 ML SYR IV PRN; +METO-351 PO; +REGADENOSON 0.4 MG/5 ML SYR (LEXISCAN) IV ONE
[2019-09-22 09:04] VITALS: BP 118/79
[2019-09-22 09:05] VITALS: BP 114/80
--- NOTE | 2019-09-22 14:49 | Cardiology Stress Test Report ---
Stress Test Report Date of Procedure/Referring: Date of Procedure: Sep 22, 2019 PCP Scot Ramirez MD Admitting Physician Yuriy Davis MD Indications: Chest pain Baseline Heart Rate: 78 Baseline Blood Pressure: Blood Pressure Systolic: 114 Blood Pressure Diastolic: 80 Baseline EKG: Baseline EKG: normal sinus rhythm Summary After explaining the procedure to the patient, she signed a consent and then brought to the stress nuclear laboratory. Patient received 0.4 mg Lexiscan for stress test, ECG, heart rate and blood pre ssure were monitored continuously. Resting and stress dose of radio tracer were injected, imaging was acquired and reviewed in short axis, horizontal long axis and vertical long axis views. TID 1.11 SSS: 7 SDS: 7 EF: 62 1. Patient tolerated Lexiscan well 2. Breast attenuation with mild decreased uptake involving the mid to apical anterior wall and anterolateral wall with mild reversibility 3. Normal left ventricular size, EF 62 percent SCOT RAMIREZ MD Sep 22, 2019 14:48
== END ==
LOC: CARD 07:02
PROVIDERS: ATTEND Internal Medicine Cardiovascular Disease
DX: I10 Essential (primary) hypertension (principal); R07.89 Other chest pain; R00.2 Palpitations
CPT/HCPCS: 78452; 93017; A9502

== ENCOUNTER → 2019-09-27 | Outpatient (CLI) | payer OTHER ==
[~2019-09-27] MED LIST changes: -CATHETER FLUSH 10 ML SYR IV PRN; +CHOL2000 PO; +HYDR-4342 PO; +HYDR25TA4 PO; +MTP25TSR PO; +MULT-1136 PO; +POTA10TA17 PO; -REGADENOSON 0.4 MG/5 ML SYR (LEXISCAN) IV ONE
== END ==
LOC: LABNPT 06:46
PROVIDERS: ATTEND Internal Medicine Cardiovascular Disease
DX: Z01.818 Encounter for other preprocedural examination (principal); Z20.828 Contact with and (suspected) exposure to other viral communicable diseases
CPT/HCPCS: 87635

== ENCOUNTER 2019-09-29 07:58 | Day surgery (SDC) | payer OTHER ==
[2019-09-29] VITALS (12 sets, daily range): BP systolic 136–170; BP diastolic 77–96
[~2019-09-29] VITALS: Ht 64 cm; Wt 89.0 kg
[~2019-09-29 07:58] MED LIST changes: -CHOL2000 PO; -HYDR-4342 PO; -HYDR25TA4 PO; -MTP25TSR PO; -MULT-1136 PO; -POTA10TA17 PO
[2019-09-29] MEDS ORDERED: NS IV 1000 ML 1,000 ML IV SCH ×2 (08:00→09:59)
[2019-09-29] MEDS ORDERED: NS IV 1000 ML 1,000 ML ONE (08:01)
[2019-09-29] MEDS ORDERED: LIDOCAINE 1% INJ 20 ML 20 ML VIAL ONE (08:01)
[2019-09-29] MEDS ORDERED: HEParin (CATH LAB) 2,000 ML IV ONE (08:01)
--- OUTSIDE RECORDS SUMMARY | 2019-09-29 08:15 | XMS REPORT | Clinical Summary ---
Author Author [facility] Organization [facility] Address Unknown Phone Unavailable Care Team Providers Care Field Software Engineer Name Role Phone Unverified, Unverified Md PCP Unavailable Source Comments Some departments are not documenting in the electronic medical record. If you d o not see the information that you expected, contact Release of Information in [facility] [employer] Information Management department at [phone] for further assistan ce in locating additional records.[facility] Allergies Not on File Medications [...]
--- OUTSIDE RECORDS SUMMARY | 2019-09-29 08:16 | XMS REPORT | Continuity of Care Document ---
Author Organization Unknown Address Unknown Phone Unavailable Allergies Active Description Code Type Severity Reaction Onset Reported/Identified Relationship to Patient Clinical Status Yes LATEX LATEX Drug Allergy null N/A Yes METAL METAL Drug Allergy null N/A Yes MORPHINE MORPHINE Drug Allergy [id number] N/A Yes REGLAN REGLAN Drug Allergy [id number] N/A Yes JANUVIA JANUVIA Drug Allergy N/A N/A Yes LATEX LATEX Drug Allergy N/A N/A Yes METAL METAL Drug Allergy N/A N/A Yes NIFEREX NIFEREX Drug Allergy N/A N/A Yes iron [id number] Drug Allergy Unknown N/A 02/23/[address] [id number] Dr ug Allergy Unknown N/A 02/23/2006 Yes ondansetron [id number] Drug Aller gy Mild Rash at IV site 02/25/2006 Yes morphine [id number] Drug Allergy Severe VOMITING 12/13/2010 Yes latex [id number] Drug Allergy Mild RASH 12/13/2010 Yes MORPHINE [...] MD Ot 414. 01 CORONARY ATHEROSCLEROSIS OF [place] CORON 07/27/2014 SCOT BRITO MD Ot 785. [...] 251.1 HYPO GLYCEMIA NEC 11/21/2015 Ot 729.82 RECORD CENTER COORDINATOR MP IN LIMB 11/21/2015 Ot 719.47 QUINTIN [...] 251.1 HYPO GLYCEMIA NEC 11/26/2015 Ot 729.82 RECORD CENTER COORDINATOR MP IN LIMB 11/26/2015 Ot 719.47 QUINTIN [...] 251.1 HYPO GLYCEMIA NEC 12/01/2015 Ot 729.82 RECORD CENTER COORDINATOR MP IN LIMB 12/01/2015 Ot 719.47 QUINTIN [...] 251.1 HYPO GLYCEMIA NEC 12/27/2015 Ot 729.82 RECORD CENTER COORDINATOR MP IN LIMB 12/27/2015 Ot 719.47 QUINTIN [...] DO, Ot J45.909 UNSPECIFIED ASTHMA, UNCOMPLICATED 08/29/2017 ASRAI CASEY DO Ot N20.1 CALCULUS OF URETER 08/29/2017 SARAI CASEY DO, Ot R11.0 NAUSEA 08/29/2017 SARAI CASEY DO Ot Z79.52 ASSOCIATE PATHOLOGIST (CURRENT) USE OF SYSTEMIC STER 08/29/2017 SARAI [...] NAUSEA 09/01/2017 SARAI CASEY DO Ot Z79.52 ASSOCIATE PATHOLOGIST (CURRENT) USE OF SYSTEMIC STER 09/01/2017 SARAI [...] AND URETERAL C 11/21/2017 HECTOR MUNIZ, JULEE Vargas Ot N20.0 CALCULUS OF KIDNEY 11/24/2017 LEANDRO [...] OF OVARY, FAL 11/24/2017 HECTOR MUNIZ, JULEE Vargas Ot N20.1 CALCULUS OF URETER 11/24/2017 HECTOR MUNIZ, JULEE Vargas Ot N20.1 CALCULUS OF URETER 11/24/2017 HECTOR MUNIZ, JULEE Vargas Ot N20.0 CALCULUS OF KIDNEY 01/03/2018 LEANDRO [...] OF OVARY, FAL 01/03/2018 HECTOR MUNIZ, JULEE Vargas Ot N20.1 CALCULUS OF URETER 01/03/2018 HECTOR MUNIZ, JULEE Vargas Ot N20.1 CALCULUS OF URETER 01/03/2018 HECTOR MUNIZ, JULEE Vargas Ot N20.0 CALCULUS OF KIDNEY 01/03/2018 DELMY SHAILESH WEB SITE SPECIALIST Ot J45.909 UNSPECIFIED ASTHMA, UNCOMPLICATED 01/03/2018 DELMY, SHAILESH WEB SITE SPECIALIST Ot R11.2 NAUSEA WITH VOMITING, UNSPECIFIED 01/03/2018 DELMY, SHAILESH WEB SITE SPECIALIST Ot R19.7 DIARRHEA, UNSPECIFIED 01/03/2018 DELMY, SHAILESH WEB SITE SPECIALIST Ot R55 SYNCOPE AND COLLAPSE 01/03/2018 DELMY, SHAILESH WEB SITE SPECIALIST Ot Z79.51 LONG-TERM (CURRENT) USE OF INHALED STERO 01/03/2018 DELMY, SHAILESH WEB SITE SPECIALIST Ot Z82.49 FAMILY HX OF ISCHEM HEART DIS AND OTH DI 01/03/2018 DELMY SHAILESH WEB SITE SPECIALIST Ot Z87.19 PERSONAL HISTORY OF OTHER DISEASES OF TH 01/03/2018 DELMY SHAILESH WEB SITE SPECIALIST Ot Z87.442 PERSONAL HISTORY OF URINARY CALCULI 01/03/2018 DELMY SHAILESH WEB SITE SPECIALIST Ot Z88.5 ALLERGY STATUS TO NARCOTIC AGENT STATUS 01/03/2018 DELMY, SHAILESH WEB SITE SPECIALIST Ot Z88.8 ALLERGY STATUS TO OT DRUG/MEDS/BIOL SUB 01/03/2018 DELMY SHAILESH WEB SITE SPECIALIST Ot Z90.49 ACQUIRED ABSENCE OF OTHER SPECIFIED PART 01/03/2018 DELMY, SHAILESH WEB SITE SPECIALIST Ot Z90.89 ACQUIRED ABSENCE OF OTHER ORGANS 01/03/2018 DELMY SHAILESH WEB SITE SPECIALIST Ot Z91.040 LATEX ALLERGY STATUS 01/05/2018 DELMY, SHAILESH WEB SITE SPECIALIST Ot J45.909 UNSPECIFIED ASTHMA, UNCOMPLICATED 01/05/2018 DELMY, SHAILESH WEB SITE SPECIALIST Ot R11.2 NAUSEA WITH VOMITING, UNSPECIFIED 01/05/2018 DELMY, SHAILESH WEB SITE SPECIALIST Ot R19.7 DIARRHEA, UNSPECIFIED 01/05/2018 DELMY, SHAILESH WEB SITE SPECIALIST Ot R55 SYNCOPE AND COLLAPSE 01/05/2018 DELMY SHAILESH WEB SITE SPECIALIST Ot Z79.51 ASSOCIATE PATHOLOGIST (CURRENT) USE OF INHALED STERO 01/05/2018 DELMY, SHAILESH WEB SITE SPECIALIST Ot Z82.49 FAMILY HX OF ISCHEM HEART [...] OF OTHER SPECIFIED PART 01/05/2018 DELMY SHAILESH WEB SITE SPECIALIST Ot Z90.89 ACQUIRED ABSENCE OF OTHER ORGANS [...] OF URINARY CALCULI 05/07/2019 HECTOR MUNIZ, JULEE Vargas Ot Z87.4 42 PERSONAL HISTORY OF URINARY [...] OF OVARY, FAL 09/10/2019 HECTOR MUNIZ, JULEE Vargas Ot N20.1 CALCULUS OF URETER 09/10/2019 JULEE YOUNG MD Ot N20.1 CALCULUS OF URETER 09/10/2019 JULEE YOUNG MD Ot N20.0 CALCULUS OF KIDNEY 09/10/2019 LEANDRO WELCH MD, Ot Z12. 31 ENCNTR SCREEN MAMMOGRAM FOR MALIGNANT NE 09/10/2019 LEANDRO WELCH MD, Ot Z98.890 OTHER SPECIFIED POSTPROCEDURAL STATES 09/10/2019 LEANDRO WELCH MD, Ot N60. 01 SOLITARY CYST OF RIGHT BREAST 09/10/2019 REEVES DO, MAYITO Thurman Ot E66.9 OBESITY, UNSPECIFIED 09/10/2019 REEVES DO, MAYITO Thurman Ot G47.33 OBSTRUCTIVE SLEEP APNEA (ADULT) (PEDIATR 09/10/2019 REEVES DO, MAYITO Thurman Ot I10 ESSENTIAL (PRIMARY) HYPERTENSION 09/10/2019 REEVES DO, MAYITO Thurman Ot M19.071 PRIMARY OSTEOARTHRITIS, RIGHT ANKLE AND 09/10/2019 REEVES DOMAYITO Ot R73.03 PREDIABETES 09/10/2019 REEVES DO, MAYITO Thurman Ot Z68.33 BODY MASS INDEX (BMI) 33.0-33.9, ADULT 09/10/2019 REEVES DO, MAYITO Thurman Ot R94.6 ABNORMAL RESULTS OF THYROID FUNCTION SIDNEY 09/10/2019 Ot R10.9 UNSP ECIFIED ABDOMINAL PAIN 09/11/2019 ADILENE SHETTY MD, Ot I10 ESSENTIAL (PRIMARY) HYPERTENSION 09/11/2019 ADILENE SHETTY MD Ot I47. 1 SUPRAVENTRICULAR TACHYCARDIA 09/11/2019 ADILENE SHETTY MD, Ot K21. 9 GASTRO-ESOPHAGEAL REFLUX DISEASE WITHOUT 09/11/2019 ADILENE SHETTY MD Ot R07. 9 CHEST PAIN, UNSPECIFIED 09/11/2019 ADILENE SHETTY MD Ot Z79.891 LONG-TERM (CURRENT) USE OF OPIATE ANALGE 09/11/2019 ADILENE SHETTY MD, Ot Z79.899 OTHER ASSOCIATE PATHOLOGIST (CURRENT) DRUG THERAPY 09/11/2019 ADILENE SHETTY MD Ot Z88. 5 ALLERGY STATUS TO NARCOTIC AGENT STATUS 09/11/2019 ADILENE SHETTY MD, Ot Z88. 8 ALLERGY STATUS TO OTH DRUG/MEDS/BIOL SUB 09/11/2019 ADILENE SHETTY MD Ot Z91.040 LATEX ALLERGY STATUS 09/11/2019 ADILENE SHETTY MD, Ot I10 ESSENTIAL (PRIMARY) HYPERTENSION 09/11/2019 ADILENE SHETTY MD, Ot I47. 1 SUPRAVENTRICULAR TACHYCARDIA 09/11/2019 ADILENE SHETTY MD Ot K21. 9 GASTRO-ESOPHAGEAL REFLUX DISEASE WITHOUT 09/11/2019 AIDLENE SHETTY MD Ot R07. 9 CHEST PAIN, UNSPECIFIED 09/11/2019 ADILENE SHETTY MD, Ot Z79.891 LONG-TERM (CURRENT) USE OF OPIATE ANALGE 09/11/2019 ADILENE SHETTY MD, Ot Z79.899 OTHER LONG-TERM (CURRENT) DRUG THERAPY 09/11/2019 ADILENE SHETTY MD, Ot Z88. 5 ALLERGY STATUS TO NARCOTIC AGENT STATUS 09/11/2019 ADILENE SHETTY MD, Ot Z88. 8 ALLERGY STATUS TO OTH DRUG/MEDS/BIOL SUB 09/11/2019 ADILENE SHETTY MD, Ot Z91.040 LATEX ALLERGY STATUS 09/27/2019 SCOT BRITO MD Ot I10 ESSENTIAL (PRIMARY) HYPERTENSION 09/27/2019 SCOT BRITO MD Ot R00. 2 PALPITATIONS 09/27/2019 SCOT BRITO MD Ot R07. 89 OTHER CHEST PAIN Procedures Code Description Performed By Per formed On . ANES INJECT PERIPH NERVE Mehran Sheth MD 04/06/2012 77.77 EXC TIB/FIB FOR GRAFT Mehran Sheth MD 04/06/2012 81.11 ANKBetina Gonzalez FUSION Domenic MUNIZ, Mehran 04/06/2012 [id number] Danette gonzalez 3V WB AP/Mort/Lat Fanfrancis, [facility] 07/16/2016 [id number] EX TIRPATION OF MATTER FROM LEFT URETER, 10/07/2017 [id number] Danette gonzalez 3V WB AP/Mort/Lat Fanfrancis, [facility] 07/23/2018 Results Test Result Range Complete blood [...] NRG Blood erythrocyte morphology finding identification NORMAL [facility] Comprehensive metabolic panel - 12/27/15 20:45 [...] - 12/27/15 20:5 0 Bacterial throat culture [id number] NRG FREE TEXT EXTERNAL PLUS NORMAL KATIE NR [...] culture - 10/05/17 18:34 Bacterial urine culture [id number] NRG COLONY COUNT . NRG FTX;REPORTABLE 30,000 CFU/ML NR FREE TEXT ENTRY 2 [facility] PRINT[facility] [address] [facility] Sensitivity Panel - 10/05/17 18:34 Gentamicin [...] (mass/time) 1 316 % 600- 1800 Clinical vmware systems administrator review of results Uric Acid Li thiasis [facility] Complete blood count (CBC) with automate [...] (mass/time) 1 449 % 600- 1800 Clinical vmware systems administrator review of results See Below NRG STONE [...] 09/10/19 13:50 BNP PT < 10.0 <100.0 THYROID STIMULATING HORMONE - 09/10/19 1 3:50 THYROID STIMULATING HORMONE 1.05 u[iU]/mL 0.35-4.94 Coronavirus SARS-CoV-2 SO 2019 - 0 14:20 Coronavirus Ab [Units/volume] in Serum Negative Negative Serum or plasma troponin i.cardiac measu rement (mass/volume) - 09/10/19 20:00 Serum or plasma troponin i.cardiac measurement (mass/v olume) < ng/mL <0.028 Complete blood count (CBC) with automate d white blood cell (WBC) differential - 09/11/19 02:20 Blood leukocytes automated count (number/volume) 8.2 10*3/uL 4.3-11.0 Blood erythrocytes automated count (number/volume) 4.15 10*6/uL 4.35-5.85 Venous blood hemoglobin measurement (mass/volume) 11.9 g/dL 11.5-16.0 Blood hematocrit (volume fraction) 36 % 35-52 Automated erythrocyte mean corpuscular volume 86 [ foz_us] 80-99 Automated erythrocyte mean corpuscular h emoglobin (mass per erythrocyte) 29 pg 25-34 Automated erythrocyte mean corpuscular h emoglobin concentration measurement (mass/volume) 33 g/dL 32-36 Automated erythrocyte distribution width ratio 13. 9 % 10.0- 14.5 Automated blood platelet count (count/volume) 240 10*3/uL 130-400 Automated blood platelet mean volume measurement 9.9 [foz_us] 7.4-10.4 Automated blood neutrophils/100 leukocytes 63 % 42-75 Automated blood lymphocytes/100 leukocytes 25 % 12-44 Blood monocytes/100 leukocytes 10 % 0-12 Automated blood eosinophils/100 leukocytes 2 % 0-10 Automated blood basophils/100 leukocytes 0 % 0-10 Blood neutrophils automated count (number/volume) 5.2 10*3 1.8-7.8 Blood lymphocytes automated count (number/volume) 2.1 10*3 1.0-4.0 Blood monocytes automated count (number/volume) 0. 8 10*3 0.0-1.0 Automated eosinophil count 0.1 10*3/uL 0 .0-0.3 Automated blood basophil count (count/volume) 0.0 10*3/uL 0.0-0.1 Comprehensive metabolic panel - 09/11/19 02:20 Serum or plasma sodium measurement (moles/volume) 139 mmol/L 135-145 Serum or plasma potassium measurement (moles/volume) 3.7 mmol/L 3.6-5.0 Serum or plasma chloride measurement (moles/volume) 104 mmol/L 98-107 Carbon dioxide 26 mmol/L 21-32 Serum or plasma anion gap determination (moles/volume) 9 mmol/L 5-14 Serum or plasma urea nitrogen measurement (mass/volume ) 14 mg/dL 7-18 Serum or plasma creatinine measurement (mass/volume) 0.80 mg/dL 0.60-1.30 Serum or plasma urea nitrogen/creatinine mass ratio 18 NRG Serum or plasma creatinine measurement w ith calculation of estimated glomerular filtration rate > NRG Serum or plasma glucose measurement (mass/volume) 108 mg/dL 70-105 Serum or plasma calcium measurement (mass/volume) 9.0 mg/dL 8.5-10.1 Serum or plasma total bilirubin measurement (mass/volu me) 0.3 mg/dL 0.1-1.0 Serum or plasma alkaline phosphatase karyna surement (enzymatic activity/volume) 61 U/L 40-136 Serum or plasma aspartate aminotransfera se measurement (enzymatic activity/volume) 11 U/L 5-34 Serum or plasma alanine aminotransferase measurement (enzymatic activity/volume) 10 U/L 0-55 Serum or plasma protein measurement (mass/volume) 6.5 g/dL 6.4-8.2 Serum or plasma albumin measurement (mass/volume) 3.7 g/dL 3.2-4.5 CALCIUM CORRECTED 9.2 mg/dL 8.5-10.1 Serum or plasma troponin i.cardiac measu rement (mass/volume) - 09/11/19 02:20 Serum or plasma troponin i.cardiac measurement (mass/v olume) < ng/mL <0.028 Lipid 1996 panel - 09/11/19 02:20 Serum or plasma triglyceride measurement (mass/volume) 116 mg/dL <150 Serum or plasma cholesterol measurement (mass/volume) 165 mg/dL < 200 Serum or plasma cholesterol in HDL measurement (mass/v olume) 41 mg/dL 40-60 Cholesterol in LDL [mass/volume] in serum or plasma by direct assay 115 mg/dL 1-129 Serum or plasma cholesterol in VLDL measurement (mass/ volume) 23 mg/dL 5-40 Coronavirus SARS-CoV-2 SO 2019 - 0 08:00 Coronavirus Ab [Units/volume] in Serum Negative Negative Radiology Report from [id number] on 013 11:53:00 Final ReportADMITTING DIAGNOSIS: ANKLE SUBTALAR ARHTIRITIS surgery-rt ankle repair/htnCHEST PA LAT - 04/06/2012 [facility] RESULT: INDICATION: Preop.COMPARISON: 09/10/2010FINDINGS: Frontal and lateral views of the chest demonstrateclear lungs bilaterally. The heart size is normal. There is nopneumothorax. Bony structures are age-appropriate.IMPRESSION: Negative chest.Dictated on workstation # [id number] BY: SUBHA GRIMALDO M.D., RADIOLOGISTELECTRONICALLY SIGNED BY: SUBHA GRIMALDO M.D., RADIOLOGISTD Apr 06 2012 6:23AT ELI: Apr 06 2012 6:25AS Apr 07 2012 11:50A Radiology Report from [id number] on 013 15:27:00 Final ReportADMITTING DIAGNOSIS: ANKLE SUBTALAR ARHTIRITIS subtalar arthritisANKLE 2 VIEWS RT - 04/06/2012 [facility] RESULT: INDICATION: Subtalar arthritis.FINDINGS: Portable image intensifier was provided for . Several images show resection of the distal fibula.There is also resection of the posterior one-half of the taluswith performance of an ankle arthrodesis. There is also asubtalar fusion.IMPRESSION: Postop changes of ankle and subtalar arthrodesis andpartial talar resection, as described.Dictated on workstation # [id number] BY: KENAN RUEDA M.D., RADIOLOGISTELECTRONICALLY SIGNED BY: KENAN RUEDA M.D., RADIOLOGISTD Apr 06 2012 1:35PT IMS: Apr 06 2012 3:24PS Apr 06 2012 3:24P Radiology Report from [id number] on 013 14:41:00 Final ReportADMITTING DIAGNOSIS: ANKLE SUBTALAR ARHTIRITIS subtalar arthritisPORT IMAGE INTEN >1HR - 04/06/2012 [facility] RESULT: INDICATION: Subtalar arthritis.IMPRESSION: Portable image intensifier was utilized 4 hours 20 minutes insurgery.In: 0900Out: 1320Actual fluoro time: 3 minutes 13 secondsKv: 61Ma: 1.5Dictated on workstation # [id number] BY: RADIOLOGY PROCESSOR, ELECTRONICALLY SIGNED BY: RADIOLOGY PROCESSORSada Apr 07 2012 6:06PT PH : Apr 07 2012 6:07PS Apr 08 2012 2:39P Encounters ACCT No. Visit Date/Time Discharge Status Pt. Type Provider Facility Loc./Unit Complaint [id number] 04/06/2012 06:07:00 04/08/19 13 13:14:00 DIS Inpatient Domenic MUNIZ, Mehran [facility] F5 [id number] 09/22/2019 07:02:00 020 23:59:59 CLS Outpatient SCOT BRITO MD Via [facility] CARD CHEST PAIN,HEART PALPITATIONS,ESSENTIAL HYPERTENSI [id number] 09/10/2019 15:20:00 12:30:00 DIS Inpatient DIOGENES MUNIZ, ADILENE [place] Via [facility] 4TH ACS WITH ELEVATED TROPO ALEXANDRA [id number] 02/05/2019 08:46:00 00:01:00 DIS Outpatient JULEE YOUNG MD Via [facility] RAD KIDNEY STONE [id number] 02/11/2019 08:58:00 23:59:59 CLS Outpatient MAYITO REEVES DO Via [facility] LAB [id number] 02/05/2019 08:42:00 23:59:59 CLS Outpatient MAYITO REEVES DO Via [facility] LAB 10-I10,10-R73.03,10-G47.33,10-M19.071,10-E66.9 [id number] 09/10/2018 07:57:00 23:59:59 CLS Outpatient LEANDRO WELCH MD Via [facility] RAD RT UPPER OUTER BREAST D ENSITY [id number] 08/31/2018 14:58:00 23:59:59 CLS Outpatient LEANDRO WELCH MD Via [facility] RAD SCREENING [id number] 01/03/2018 13:52:00 16:13:00 DIS Emergency DELMY, SHAILESH WEB SITE SPECIALIST Via [facility] ER VOMITING [id number] 12/22/2017 00:52:00 23:59:59 CLS Preadmit JULEE YOUNG MD, V ia [facility] LAB N20.0 [id number] 11/14/2017 13:46:00 00:01:00 DIS Outpatient JULEE YOUNG MD Via [facility] LAB N20.0 [id number] 10/05/2017 18:25:00 14:35:00 DIS Inpatient LEANDRO WELCH MD Via [facility] 4TH L URETERAL STONE,HYDRON EPHROSIS [id number] 09/15/2017 12:36:00 018 23:59:59 CLS Outpatient JULEE YOUNG MD Via [facility] RAD STONES [id number] 09/01/2017 13:33:00 23:59:59 CLS Outpatient JULEE YOUNG MD Via [facility] RAD STONES [id number] 08/29/2017 04:19:00 07:06:00 DIS Emergency JACINTO DOSARAI [facility] ER POSS KIDNEY STONE [id number] 06/25/2017 10:39:00 23:59:59 CLS Outpatient MAYITO REEVES DO Via [facility] RAD RLQ PAIN [id number] 03/18/2017 09:32:00 017 23:59:59 CLS Outpatient LEANDRO WELCH MD Via [facility] RAD SCREENING MAMMO [id number] 06/06/2016 09:22:00 017 23:59:59 CLS Outpatient MAYITO REEVES DO Via [facility] LAB PRE-DIABETES [id number] 04/08/2016 09:09:00 017 23:59:59 CLS Outpatient LEANDRO WELCH MD Via [facility] RAD LT BREAST LUMP [id number] 04/01/2016 07:50:00 017 23:59:59 CLS Outpatient LEANDRO WELCH MD Via [facility] RAD LUMP LEFT UPPER OUTER B REAST [id number] 03/22/2016 11:15:00 016 23:59:59 CLS Outpatient LEANDRO WELCH MD Via [facility] RAD SCREENING [id number] 12/27/2015 20:00:00 016 22:47:00 DIS Emergency JACINTO SARAI BERRIOS [facility] ER STREP THROAT [id number] 12/12/2014 08:08:00 015 11:07:00 DIS Outpatient JOSE G BALLARD MD Via [facility] SDC REFLUX; FAMILY HX COLO N CANCER; BLOOD IN STOOLS [id number] 12/08/2014 06:03:00 015 23:59:59 CLS Outpatient JOSE G BALLARD MD Via [facility] PREOP REFLUX; FAMILY HX COLO N CANCER;BLOOD IN STOOLS [id number] 08/19/2014 08:00:00 015 23:59:59 CLS Preadmit MAYITO REEVES DO Via [facility] CARD TACHYCARDIA,HYPOTENSIO N [id number] 05/20/2014 07:46:00 015 00:01:00 DIS Outpatient MAYITO REEVES DO Via [facility] CARD TACHYCARDIA,HYP OTENSION [id number] 07/27/2014 06:48:00 015 14:20:00 DIS Outpatient SCOT BRITO MD Via [facility] CATH ABNORMAL STRESS, CP,SOB,PALPITATIONS,TACHYCARDIA [id number] 07/20/2014 08:16:00 015 23:59:59 CLS Outpatient SCOT BRITO MD Via [facility] CARD CP,PALPITATIONS,KENYA [id number] 07/14/2014 06:45:00 015 23:59:59 CLS Outpatient MAYITO REEVES DO Via [facility] CARD SEE ORDER-CP/78 6.50 [id number] 03/04/2014 20:30:00 014 06:45:00 DIS Outpatient MAYITO REEVES DO Via [facility] SLEEP KENYA [id number] 03/02/2014 14:21:00 014 23:59:59 CLS Outpatient LEANDRO WELCH MD Via [facility] RAD LEFT BREAST DIMPLING [id number] 09/29/2019 10:00:00 P EN Preadmit SCOT BRITO MD Via [facility] CATH ABNORMAL STRESS TEST,CP,HTN, GERD,HLP [id number] 09/27/2019 06:46:[address] Outpatient SCOT BRITO MD Via [facility] LABNPT [id number] 05/07/2019 00:00:00 Document Registration [id number] 05/25/2014 14:27:00 Document Registration [id number] 06/08/2012 07:31:00 Document Registration [id number] 06/03/2012 07:47:00 Document Registration [id number] 02/24/2012 07:45:00 Document Registration [id number] 09/13/2011 09:41:00 Document Registration [id number] 08/23/2011 08:20:00 Document Registration [id number] 07/23/2011 15:13:00 Document Registration [id number] 06/17/2011 11:55:00 Document Registration [id number] 03/26/2011 16:31:00 Document Registration [id number] 03/06/2011 17:00:00 Document Registration [id number] 01/25/2011 08:42:00 Document Registration [id number] 12/20/2010 05:36:00 Document Registration [id number] 12/18/2010 09:09:00 Document Registration [id number] 12/13/2010 08:45:00 Document Registration [id number] 07/16/2016 00:00:00 Document Registration
[2019-09-29 09:00] LABS: HEMOGLOBIN 12.7 G/DL (11.5-16.0); RED CELL DISTRIBUTION WIDTH 13.8 % (10.0-14.5)
[2019-09-29 09:02] LABS: BILIRUBIN,URINE NEGATIVE (NEGATIVE); CLARITY,URINE CLEAR; COLOR,URINE YELLOW; GLUCOSE, URINE (UA) NEGATIVE (NEGATIVE); KETONES,URINE NEGATIVE (NEGATIVE); LEUKOCYTE ESTERASE ,URINE NEGATIVE (NEGATIVE); NITRITE,URINE NEGATIVE (NEGATIVE); PROTEIN,URINE NEGATIVE (NEGATIVE)
[2019-09-29 09:13] LABS: BACTERIA,URINE MODERATE /HPF; SQUAMOUS EPITHELIAL CELL,UR 25-50 /HPF; WBC,URINE 0-2 /HPF
[2019-09-29 09:14] LABS: INR 0.9 (0.8-1.4)
[2019-09-29] MEDS ORDERED: fentaNYL INJECTION 100 MCG/2 ML AMP ONE ×2 (09:18→09:42)
[2019-09-29] MEDS ORDERED: MIDAZOLAM 5 MG/5 ML (VERSED) VIAL ONE (09:18)
[2019-09-29] MEDS ORDERED: HEParin 1000 UNIT/ML (10ML VIAL) FOR BOLUS ONE (09:20)
[2019-09-29] MEDS ORDERED: NITRO DRIP 25000 MCG/D5W 250 ML IV ONE (09:20)
[2019-09-29] MEDS ORDERED: VERAPAMIL 5 MG/2 ML (CALAN) VIAL IV ONE (09:20)
[2019-09-29] MEDS ORDERED: MTP25TSR PO (09:21)
[2019-09-29] MEDS ORDERED: POTA10TA17 PO (09:21)
[2019-09-29] MEDS ORDERED: MULT-1136 PO (09:21)
[2019-09-29] MEDS ORDERED: CHOL2000 PO (09:21)
[2019-09-29] MEDS ORDERED: HYDR25TA4 PO (09:21)
[2019-09-29] MEDS ORDERED: CYCL10TA9 PO (09:21)
[2019-09-29] MEDS ORDERED: HYDR-4342 PO (09:21)
[2019-09-29 09:23] LABS: ALANINE AMINOTRANSFERASE 17 U/L (0-55); ALBUMIN 4.2 GM/DL (3.2-4.5); ALKALINE PHOSPHATASE 61 U/L (40-136); BILIRUBIN,TOTAL 0.2 MG/DL (0.1-1.0); BUN/CREATININE RATIO 12; CALCIUM 9.1 MG/DL (8.5-10.1); CARBON DIOXIDE 24 MMOL/L (21-32); CHLORIDE 102 MMOL/L (98-107); CHOLESTEROL 198 MG/DL (< 200); CREATININE SERUM 0.91 MG/DL (0.60-1.30); GFR ESTIMATED > 60; GLUCOSE 102 MG/DL (70-105); HDL CHOLESTEROL 54 MG/DL (40-60); SODIUM 137 MMOL/L (135-145); TOTAL PROTEIN 7.2 GM/DL (6.4-8.2); TRIGLYCERIDES 159 MG/DL (<150); VLDL CHOLESTEROL 32 MG/DL (5-40)
--- NOTE | 2019-09-29 09:26 | Diagnostic Imaging Report ---
EXAMINATION: Single frontal upright view of the chest. INDICATION: Cough. Patient scheduled for heart catheter, with possible coronary angioplasty/stent placement. COMPARISON: Multiple priors, most recent performed on 09/10/2019. FINDINGS: The lungs are clear and the pulmonary vasculature is normal. No pneumothorax or large pleural effusion. Heart size and mediastinal contours are normal and unchanged. No acute osseous abnormality is appreciated. IMPRESSION: No radiographic evidence of acute chest disease. No significant change from prior. Dictated by: Dictated on workstation # [id number]
--- NOTE | 2019-09-29 09:29 | Cardiac Procedure Note-CS/ASA ---
Pre-Procedure Note Pre-Op Procedure Note H&P Reviewed The H&P was reviewed, patient examined and no changes noted. Date H&P Reviewed: Sep 29, 2019 Time H&P Reviewed: 09:28 Conscious Sedation Pre-Proced Time 09:28 ASA Score 3 For ASA 3 and 4: Consider anesthesia and medical clearance. Also, for patients with a history of failed moderate sedation consider anesthesia. Airway Lungs Heart ASA score ASA 1: a normal healthy patient ASA 2: a patient with a mild systemic disease (mid diabetes, controlled hypertension, obesity x ASA 3: a patient with a severe systemic disease that limits activity (angina, COPD, prior Myocardial infarction) ASA 4: a patient with an incapacitating disease that is a constant threat to life (CHF, renal failure) ASA 5: a moribund patient not expected to survive 24 hrs. (ruptured aneurysm) ASA 6: a declared brain- patient whose organs are being harvested. For emergent operations, add the letter E after the classification Mallampati Classification Grade 3 Sedation Plan Analgesia, Amnesia, Plan communicated to team members, Discussed options with patient/fam, Discussed risks with patient/fam The patient is an appropriate candidate to undergo the planned procedure, sedation, and anesthesia. The patient immediately re-assessed prior to indication. SCTO BRITO MD Sep 29, 2019 09:29
--- NOTE | 2019-09-29 10:01 | Discharge Inst-Post CATH ---
Discharge Inst-CATH/EP Problems Reviewed?: Yes Post Cardiac Cath/EP D/C Inst Follow Up/Plan Appointment with Dr. Ramirez's office in 4 weeks <b>CARDIAC CATH/EP PROCEDURE DISCHARGE INSTRUCTIONS</b> ACTIVITY * Go Home directly and rest. * Limit activity of the leg (or wrist if it was used) for 7 days including aerobics, swimming, jogging, bicycling, etc. * Restrict stair-climbing for 7 days if possible, if not, climb up with your non-cath leg, then bring together on the same step. * Avoid lifting, pushing, pulling or excessive movement of the affected extremity for 7 days. * Customary sexual activity may be resumed after 2 days-use caution not to use a position that strains or causes pain to the affected extremity. * No driving for 24 hours. * NO SMOKING. * Avoid straining for bowel movements for 7 days. * Gentle walking on level ground is allowed. * Returning to work will depend on the type of procedure and the results. Your doctor will discuss this with you. CALL YOUR DOCTOR FOR ANY OF THE FOLLOWING: *If bleeding from the puncture site occurs- Apply gentle pressure to site with clean cloth and call your doctor or EMS. * If a knot or lump forms under the skin, increases in size, or causes pain. * If bruising appears to be worsening or moving further down your leg instead of disappearing. * Temperature above 101 F. CARE OF YOUR GROIN INCISION; * Bruising or purple discoloration of the skin near the puncture site is common. * You may shower only, no bathtub bathing for 5 days. Be careful to avoid slipping as your leg may feel stiff. * If a closure device was used on your femoral artery, please see the attached guide regarding care of the device and your leg. * Leave dressing on FOR 24 hours. CARE OF YOUR WRIST INCISION; * Bruising or purple discoloration of the skin near the puncture site is common. * You may shower. * DO NOT submerge wrist. * Leave dressing on FOR 24 hours. SCOT RAMIREZ MD Sep 29, 2019 10:01
--- NOTE | 2019-09-29 10:04 | NUR ---
SPOKE WITH THE PATIENT AND WENT THROUGH THE EXTERNAL MED HISTORY TO COMPLETE THE MED REC. ALL MEDICATIONS LISTED ARE ON THE EXTERNAL MED HISTORY. OTC: MULTIVITAMIN VITAMIN D
--- NOTE | 2019-09-29 10:05 | Cardiac Cath Report ---
Cardiac Cath Report Physician (s)/Supervisor Line Department (s) Physician SCOT BRITO MD Pre-Procedure Diagnosis Pre-Procedure Diagnosis: Chest pain, coronary artery disease Post-Procedure Note Procedure Start Date: Sep 29, 2019 Name of Procedure: Left heart catheterization Findings/Procedure Note PROCEDURE NOTE: 44-year-old lady admitted with chest pain and palpitation, had a stress test which was abnormal. Discussed the management plan recommended cardiac cath eterization possible PTCA. After explaining the procedure to the patient, all pros and cons were explained, all questions were answered. The patient signed the consent and then she was placed on the cardiac catheterization laboratory. Groin was prepped SL fashion local anesthesia was used. Sheath placed in the right radial artery, [place] catheter was used advanced to the left ventricular cavity, pressure was measured no left ventriculogram was done, pulled back to the right coronary artery and angiogram was then turned to the left system and angiogram was done. At the end of the procedure the sheath was removed. Vascular bed was used FINDINGS: Hemodynamics LV 102 / 3, end-diastolic pressure of 3 Aorta 100/74 mean of 59 ANATOMY: Left Main Is free of obstructive disease Left Anterior Descending Has minimal irregularity no significant obstructive disease Left Circumflex Is free of obstructive disease Right Coronory Artery Is free of obstructive disease LV Gram Was not done, pressure was measured CONCLUSION: 1. No significant obstructive coronary artery disease minimal irregularity was noted, 2. Normal left ventricular end-diastolic pressure DISCUSSION AND RECOMMENDATION: Abnormal stress test is probably due to extracardiac attenuation, no significant obstructive coronary artery disease was noted Anesthesia Type: Conscious Sedation Estimated blood loss (mL): 5 ml Contrast Amount: 24 ml Total Radiation Dose: 220 mGy Post-Procedure Diagnosis Post-operative diagnosis: Chest pain Palpitation Paroxysmal atrial tachycardia Hypertension SCOT BRITO MD Sep 29, 2019 10:05
--- NOTE | 2019-09-29 11:13 | NUR ---
1113 2ML AIR REMOVED FROM WRIST DEVICE AND WILL CONT TO REMOVE 2ML EVERY 15 MIN [id number] AIR REMOVED FROM WRIST DEVICE 1143 2ML AIR REMOVED. 1144 PT SAYS SITE IS OOZING, 2ML AIR INSERTED PER Raoul RASMUSSEN RN. PAIN DOWN TO 1-2 1210 PT UP TO BR, 2 ML AIR REMOVED 1230 2ML AIR REMOVED 1250 2ML AIR REMOVED AND WRIST DEVICE REMOVED. PRESSURE DRSG APPLIED USING STERILE TECHNIQUE
== END 2019-09-29 13:00 | disposition home or self-care (01) ==
LOC: CATH 07:58 → SDC 10:15 → CATH 13:00
PROVIDERS: ATTEND Internal Medicine Cardiovascular Disease
DX: R07.2 Precordial pain (principal); R00.2 Palpitations; I47.1 Supraventricular tachycardia; R94.39 Abnormal result of other cardiovascular function study; G47.33 Obstructive sleep apnea (adult) (pediatric); R73.9 Hyperglycemia, unspecified; I25.10 Atherosclerotic heart disease of native coronary artery without angina pectoris; E66.01 Morbid (severe) obesity due to excess calories; Z68.45 Body mass index [BMI] 70 or greater, adult; Z79.899 Other long term (current) drug therapy; Z91.040 Latex allergy status; Z88.8 Allergy status to other drugs, medicaments and biological substances; Z88.5 Allergy status to narcotic agent; Z90.49 Acquired absence of other specified parts of digestive tract; Z83.3 Family history of diabetes mellitus; Z82.49 Family history of ischemic heart disease and other diseases of the circulatory system
CPT/HCPCS: 71045; 80053; 80061; 81000; 84703; 85027; 85610; 85730; 87081; 93458; C1894; 36415

== ENCOUNTER → 2019-11-07 | Outpatient (CLI) | payer OTHER ==
[~2019-11-07] MED LIST changes: +CHOL200074 PO; +HYDR-3817 PO; +HYDR25TA4 PO; +MTP25TSR PO; +MULT-1136 PO; +POTA10TA17 PO
== END ==
LOC: LAB 08:25
PROVIDERS: ATTEND Family Medicine
DX: R50.9 Fever, unspecified (principal); M79.10 Myalgia, unspecified site; R10.9 Unspecified abdominal pain; R51 Headache; Z20.828 Contact with and (suspected) exposure to other viral communicable diseases

== ENCOUNTER 2019-12-23 12:19 | Outpatient (RCR) | payer OTHER | END 2020-03-22 | disposition home or self-care (01) | LOC: LAB 12:19 | PROVIDERS: ATTEND Internal Medicine Gastroenterology | DX: Z11.59 Encounter for screening for other viral diseases (principal); K52.9 Noninfective gastroenteritis and colitis, unspecified | CPT/HCPCS: 87324; 87328; 87329; 87449 ==

== ENCOUNTER → 2019-12-27 | Outpatient (CLI) | payer OTHER | LOC: LABNPT 06:00 | DX: Z11.59 Encounter for screening for other viral diseases (principal) | CPT/HCPCS: 87635 ==

== ENCOUNTER → 2020-04-28 | Outpatient (CLI) | payer OTHER | LOC: LABNPT 16:39 | PROVIDERS: ATTEND Obstetrics & Gynecology | DX: Z01.89 Encounter for other specified special examinations (principal) | CPT/HCPCS: 87088 ==

== ENCOUNTER → 2020-06-21 | Outpatient (CLI) | payer OTHER ==
[2020-06-21 08:17] LABS: BASOPHILS # (AUTO) 0.1 10^3/uL (0.0-0.1); BASOPHILS % (AUTO) 1 % (0-10); EOSINOPHILS # (AUTO) 0.2 10^3/uL (0.0-0.3); EOSINOPHILS % (AUTO) 3 % (0-10); HEMATOCRIT 42 % (35-52); LYMPHOCYTES # (AUTO) 1.7 10^3/uL (1.0-4.0); LYMPHOCYTES % (AUTO) 29 % (12-44); MEAN CORPUSCULAR HEMOGLOBIN 27 pg (25-34); MEAN CORPUSCULAR HGB CONC 31 g/dL (32-36); MEAN CORPUSCULAR VOLUME 88 fL (80-99); MEAN PLATELET VOLUME 10.1 fL (9.0-12.2); MONOCYTES # (AUTO) 0.6 10^3/uL (0.0-1.0); MONOCYTES % (AUTO) 10 % (0-12); NEUTROPHILS # (AUTO) 3.3 10^3/uL (1.8-7.8); NEUTROPHILS % (AUTO) 57 % (42-75); PLATELET COUNT 271 10^3/uL (130-400); WHITE BLOOD COUNT 5.8 10^3/uL (4.3-11.0)
[2020-06-21 08:36] LABS: ALBUMIN 4.2 GM/DL (3.2-4.5); BILIRUBIN,TOTAL 0.4 MG/DL (0.1-1.0); CALCIUM 9.1 MG/DL (8.5-10.1); CREATININE SERUM 1.04 MG/DL (0.60-1.30); POTASSIUM 3.6 MMOL/L (3.6-5.0); TOTAL PROTEIN 7.3 GM/DL (6.4-8.2)
--- NOTE | 2020-06-22 14:44 | Diagnostic Imaging Report ---
INDICATION: Routine screening. COMPARISON: 08/31/2018 and 03/18/2017. TECHNIQUE: 2D and 3D bilateral screening mammography was performed with CAD. FINDINGS: Both breasts are heterogeneously dense, limiting the sensitivity of mammography. A biopsy marker clip in the left breast is again noted. Benign nodular densities in the outer left breast appear stable. Benign calcifications in the right breast are stable. No spiculated mass or malignant appearing microcalcifications are seen. The axillae are unremarkable. IMPRESSION: No mammographic features suspicious for malignancy are identified. ACR BI-RADS Category 2: Benign findings. Result letter will be mailed to the patient. Note: At least 10% of breast cancer is not imaged by mammography. Dictated by: Dictated on workstation # [id number]
== END ==
LOC: RAD 07:48
PROVIDERS: ATTEND Family Medicine
DX: Z12.31 Encounter for screening mammogram for malignant neoplasm of breast (principal); Z00.00 Encounter for general adult medical examination without abnormal findings
CPT/HCPCS: 36415; 77063; 77067; 80053; 80061; 83036; 84443; 85025

== ENCOUNTER → 2020-10-13 | Outpatient (CLI) | payer OTHER ==
--- NOTE | 2020-10-13 11:28 | Diagnostic Imaging Report ---
PROCEDURE: US Non-ob pelvis comp/trans. TECHNIQUE: Multiple realtime grayscale images were obtained of the pelvis in various projections endovaginally. Transabdominal imaging was also performed. INDICATION: Abnormal uterine bleeding. COMPARISON: CT abdomen pelvis from 10/05/2017 FINDINGS: The uterus measures 7.1 x 4.5 x 5.8 cm and is retroverted. The myometrium is normal in echogenicity without discrete mass. The endometrium measures up to 0.8 cm where visualized, and is normal in echogenicity. The right ovary is nonvisualized due to surrounding bowel gas. In the left adnexa there is a anechoic cyst with a thin internal septation measuring 3.2 x 2.3 x 2.9 cm. This is likely within the left ovary and the ovarian tissue is compressed peripherally by this cyst. Blood flow is able be detected within the compressed tissue. IMPRESSION: 1. Normal ultrasound appearance of the uterus and endometrium. 2. Left ovarian cyst/follicle measures up to 3.2 cm. Dictated by: Dictated on workstation # [id number]
== END ==
LOC: RAD 08:49
PROVIDERS: ATTEND Family Medicine
DX: N83.02 Follicular cyst of left ovary (principal)
CPT/HCPCS: 76830; 76856

== ENCOUNTER 2021-07-21 21:42 | Emergency (ER) | payer OTHER ==
[~2021-07-21] VITALS: Ht 160 cm; Wt 89.0 kg
[~2021-07-21 21:42] MED LIST changes: +CYCL10TA25 PO
[2021-07-21] MEDS ORDERED: PROMETHAZINE INJ 25 MG/ML (PHENERGAN) AMP IVP ONE (22:00)
[2021-07-21] MEDS ORDERED: ASPIRIN 81 MG CHEW (CHILDREN'S ASA) PO ONE (22:00)
[2021-07-21] MEDS ORDERED: NS IV 1000 ML 1,000 ML IV SCH (22:00)
[2021-07-21 22:06] LABS: BASOPHILS % (AUTO) 0 % (0-10); EOSINOPHILS # (AUTO) 0.1 10^3/uL (0.0-0.3); EOSINOPHILS % (AUTO) 1 % (0-10); HEMATOCRIT 38 % (35-52); HEMOGLOBIN 12.5 g/dL (11.5-16.0); LYMPHOCYTES # (AUTO) 2.3 10^3/uL (1.0-4.0); LYMPHOCYTES % (AUTO) 29 % (12-44); MEAN CORPUSCULAR HEMOGLOBIN 29 pg (25-34); MEAN CORPUSCULAR HGB CONC 33 g/dL (32-36); MEAN CORPUSCULAR VOLUME 88 fL (80-99); MEAN PLATELET VOLUME 10.2 fL (9.0-12.2); MONOCYTES # (AUTO) 0.6 10^3/uL (0.0-1.0); MONOCYTES % (AUTO) 7 % (0-12); NEUTROPHILS # (AUTO) 5.1 10^3/uL (1.8-7.8); NEUTROPHILS % (AUTO) 63 % (42-75); PLATELET COUNT 252 10^3/uL (130-400); WHITE BLOOD COUNT 8.1 10^3/uL (4.3-11.0)
--- NOTE | 2021-07-21 22:07 | ED Chest Pain ---
General Stated Complaint: CP, N/V, WEAKNESS Source: patient Exam Limitations: no limitations History of Present Illness Date Seen by Provider: Jul 21, 2021 Time Seen by Provider: 21:50 Initial Comments Patient to the ER by EMS with chief complaint that just prior to arrival she was at home and thought that she was going into her SVT episode with a heart rate around 180. She says she vasovagal out and collapsed to the floor. She is having some heaviness in her chest. She says she had a heart catheterization about 1 to [address] Ramirez which was clean. She is not on blood thinners. She is not having a cough, fever diarrhea or vomiting but she does have some nausea and some chills after the episode. EMS gave her 4 of Zofran which made her itch so they gave her 25 mg of Benadryl on route. Cardiac catheterization by Dr. Ramirez 2019 demonstrates no CAD with minimal irregularities noted. Allergies and Home Medications Allergies Coded Allergies: morphine (Unverified Allergy, Severe, VOMITING, 12/13/10) latex (Unverified Allergy, Mild, RASH, 12/13/10) ondansetron (Unverified Allergy, Mild, Rash at IV site, 02/25/06) iron (Verified Allergy, Unknown, 02/23/06) metoclopramide (Verified Allergy, Unknown, 02/23/06) Patient Home Medication List Home Medication List Reviewed: Yes Cholecalciferol (Vitamin D3) (Vitamin D3) 50 Mcg Capsule, 100 MCG PO DAILY, (Reported) Entered as Reported by: MODESTA RUBIN on 09/29/19920 Hydrochlorothiazide (Hydrochlorothiazide) 25 Mg Tablet, 25 MG PO DAILY, (Reported) Entered as Reported by: MODESTA RUBIN on 09/29/19920 Hydrocodone/Acetaminophen (Hydrocodone-Acetamin 7.5-325) 1 Each Tablet, 2 EA PO HS, (Reported) Entered as Reported by: MODESTA RUBIN on 09/29/19920 Metoprolol Succinate (Metoprolol Succinate) 25 Mg Tab.er.24h, 25 MG PO HS, (Reported) Entered as Reported by: MODESTA RUBIN on 09/29/19920 Multivitamin (Multivitamin) 1 Each Tablet, 1 EACH PO DAILY, (Reported) Entered as Reported by: MODESTA RUBIN on 09/29/19920 Potassium Citrate (Potassium Citrate ER) 10 Meq Tablet.er, 10 MEQ PO DAILY, (Reported) Entered as Reported by: MODESTA RUBIN on 09/29/19920 Discontinued Medications Cyclobenzaprine HCl (Cyclobenzaprine HCl) 10 Mg Tablet, 10 MG PO HS, (Reported) Discontinued Reason: No Longer Taking Entered as Reported by: MODESTA RUBIN on 09/29/19920 Last Action: Discontinued Review of Systems Review of Systems Constitutional: No chills, No diaphoresis EENTM: No Blurred Vision, No Double Vision Respiratory: Denies Cough, Denies Shortness of Air Cardiovascular: Chest Pain; Denies Lightheadedness Gastrointestinal: Denies Constipated, Denies Diarrhea; Nausea Genitourinary: Denies Burning, Denies Discharge Musculoskeletal: No back pain, No joint pain Skin: No pruritus, No rash Psychiatric/Neurological: Denies Anxiety, Denies Depressed All Other Systems Reviewed Negative Unless Noted: Yes Past Gdzcuje-Fxksnl-Rqjvwg Hx Patient Social History Tobacco Use?: No Use of E-Cig and/or Vaping dev: No Substance use?: No Immunizations Up To Date Tetanus Booster (TDap): More than 5yrs Seasonal Allergies Seasonal Allergies: Yes Past Medical History Surgeries: Yes Appendectomy, Gallbladder, Orthopedic, Renal Respiratory: Yes Asthma Cardiac: No (ABNORMAL STRESS TEST AND CARDIAC CATH 2014--NO INTERVENTION/MILD DISEASE) Coronary Artery Disease, Hypertension Neurological: No Reproductive Disorders: Yes Female Reproductive Disorders: Ovarian Cyst Sexually Transmitted Disease: No Genitourinary: Yes Kidney Stones Gastrointestinal: Yes ( GABI AND APPY) Colitis, Esophagitis, Gall Bladder Disease Musculoskeletal: Yes Fractures Endocrine: Yes (HYPERGLYCEMIA IN PAST) HEENT: No Cancer: No Psychosocial: No Integumentary: No Blood Disorders: No Adverse Reaction/Blood Tranf: No Family Medical History AORTIC VALVE REPLACEMENT 19 FATHER G8 SISTER FH: congestive heart failure G8 SISTER Bicuspid aortic valve in two siblings Physical Exam Vital Signs Vital Signs - First Documented 07/21/21 21:47 Temp 36.6 Pulse 75 Resp 18 B/P (MAP) 140/73 (95) Pulse Ox 100 O2 Delivery Room Air Capillary Refill : Height, Weight, BMI Height: 5'3.00" Weight: 206lbs. 0.0oz. 93.527190jv; 217.28 BMI Method:Stated General Appearance: WD/WN, Mild Distress HEENT: PERRL/EOMI, Pharynx Normal, Moist Mucous Membranes Neck: Full Range of Motion, Normal Inspection Respiratory: Lungs Clear, Normal Breath Sounds, No Accessory Muscle Use, No Respiratory Distress Cardiovascular: Regular Rate, Rhythm, No Edema, Normal Peripheral Pulses Extremity: Normal Capillary Refill, Normal Inspection, No Pedal Edema Neurologic/Psychiatric: Alert, Oriented x3, No Motor/Sensory Deficits Skin: Normal Color, Warm/Dry Progress/Results/Core Measures Results/Orders Lab Results Laboratory Tests Test 07/21/21 21:55 Range/Units White Blood Count 8.1 4.3-11.0 10^3/uL Red Blood Count 4.34 3.80-5.11 10^6/uL Hemoglobin 12.5 11.5-16.0 g/dL Hematocrit 38 35-52 % Mean Corpuscular Volume 88 80-99 fL Mean Corpuscular Hemoglobin 29 25-34 pg Mean Corpuscular Hemoglobin Concent 33 32-36 g/dL Red Cell Distribution Width 13.2 10.0-14.5 % Platelet Count 252 130-400 10^3/uL Mean Platelet Volume 10.2 9.0-12.2 fL Immature Granulocyte % (Auto) 0 % Neutrophils (%) (Auto) 63 42-75 % Lymphocytes (%) (Auto) 29 12-44 % Monocytes (%) (Auto) 7 0-12 % Eosinophils (%) (Auto) 1 0-10 % Basophils (%) (Auto) 0 0-10 % Neutrophils # (Auto) 5.1 1.8-7.8 10^3/uL Lymphocytes # (Auto) 2.3 1.0-4.0 10^3/uL Monocytes # (Auto) 0.6 0.0-1.0 10^3/uL Eosinophils # (Auto) 0.1 0.0-0.3 10^3/uL Basophils # (Auto) 0.0 0.0-0.1 10^3/uL Immature Granulocyte # (Auto) 0.0 0.0-0.1 10^3/uL Sodium Level 141 135-145 MMOL/L Potassium Level 3.5 L 3.6-5.0 MMOL/L Chloride Level 107 98-107 MMOL/L Carbon Dioxide Level 17 L 21-32 MMOL/L Anion Gap 17 H 5-14 MMOL/L Blood Urea Nitrogen 10 7-18 MG/DL Creatinine 0.90 0.60-1.30 MG/DL Estimat Glomerular Filtration Rate 81 BUN/Creatinine Ratio 11 Glucose Level 128 H 70-105 MG/DL Calcium Level 9.3 8.5-10.1 MG/DL Corrected Calcium 9.1 8.5-10.1 MG/DL Magnesium Level 2.2 1.6-2.4 MG/DL Total Bilirubin 0.3 0.1-1.0 MG/DL Aspartate Amino Transf (AST/SGOT) 13 5-34 U/L Alanine Aminotransferase (ALT/SGPT) 12 0-55 U/L Alkaline Phosphatase 59 40-136 U/L Myoglobin 31.8 10.0-92.0 NG/ML Troponin I < 0.028 <0.028 NG/ML Total Protein 6.8 6.4-8.2 GM/DL Albumin 4.2 3.2-4.5 GM/DL My Orders Orders - SUSANA JONES Continuous Ekg Monitoring (07/21/21 21:45) Ekg Tracing (07/21/21 21:45) Cbc With Automated Diff (07/21/21 22:00) Magnesium (07/21/21 22:00) Chest 1 View, Ap/Pa Only (07/21/21 22:00) Comprehensive Metabolic Panel (07/21/21 22:00) Myoglobin Serum (07/21/21 22:00) O2 (07/21/21 22:00) Lipid Panel (07/22/21 06:00) Ed Iv/Invasive Line Start (07/21/21 22:00) Troponin I [place] (07/21/21 22:00) Aspirin Chewable Tablet (Baby Aspirin Ch (07/21/21 22:00) Promethazine Injection (Phenergan Injec (07/21/21 22:00) Ed Iv/Invasive Line Start (07/21/21 22:00) Ns Iv 1000 Ml (Sodium Chloride 0.9%) (07/21/21 22:00) Medications Given in ED Current Medications Medications Dose Ordered Sig/Abiola Route Start Time Stop Time Status Last Admin Dose Admin Aspirin 324 mg ONCE ONCE PO 07/21/21 22:00 07/21/21 22:02 DC 4/30/22 22:08 324 MG Promethazine HCl 25 mg ONCE ONCE IVP 07/21/21 22:00 07/21/21 22:02 DC 07/21/21 22:08 25 MG Vital Signs/I&O 07/21/21 21:47 Temp 36.6 Pulse 75 Resp 18 B/P (MAP) 140/73 (95) Pulse Ox 100 O2 Delivery Room Air Progress Progress Note #1: Time: 22:06 Progress Note Phenergan for her nausea, she has no rash or other evidence of anaphylaxis. We will give her a liter of fluids. Give her some time. 324 mg of aspirin. Check labs including a troponin. Progress Note #2: Time: 22:57 Progress Note The patient's nausea has subsided. She is feeling more rested. She says she wu s been having an exciting day running all over and thinks maybe that contributed to her SVT episode today. She is going to take another 50 mg tablet of her own metoprolol. We have discussed doing a delta troponin since she was having some chest pressure/heaviness and she has declined. This is reasonable since she had a clean heart cath couple years ago is not having any pain now. Initial ECG Impression Date: Jul 21, 2021 Initial ECG Impression Time: 21:51 Initial ECG Rate: 78 Initial ECG Rhythm: Normal Sinus Initial ECG Intervals: Normal Initial ECG Impression: Normal Initial ECG Comparisson: Unchanged Comment Normal sinus rhythm with no clinically relevant ST changes. Normal indices. Diagnostic Imaging Diagonstic Imaging: Xray Plain Films/CT/US/NM/MRI: chest Comments NAME: [facility] REC#: [id number] PT STATUS: REG ER : 1975 PHYSICIAN: SUSANA JONES MD ADMIT DATE: 07/21/21/ER Signed Date of Exam:07/21/21 CHEST 1 VIEW, AP/PA ONLY EXAMINATION: Chest 1 view. HISTORY: Chest pain. COMPARISON: 09/29/2019. FINDINGS: The lung volumes are normal. No focal consolidation is seen. No large pleural effusion or pneumothorax is seen. The cardiomediastinal silhouette is normal in size and contour. No acute osseous abnormality is seen. IMPRESSION: No acute pleuroparenchymal process. Dictated by: Dictated on workstation # [id number] Dict: 07/21/212225 Trans: 07/21/212227 [facility] [id number] Interpreted by: CROW CAMACHO DO Electronically signed by: CROW CAMACHO DO 07/21/212227 Reviewed: Reviewed by Me Departure Impression Primary Impression: Paroxysmal SVT (supraventricular tachycardia) Disposition: 01 HOME, SELF-CARE Condition: Stable Departure-Patient Inst. Decision time for Depature: 23:00 Referrals: LEANDRO WELCH MD (PCP/Family) Primary Care Physician SCOT RAMIREZ MD Patient Instructions: Supraventricular Tachycardia (SVT) Add. Discharge Instructions: If you notice a pattern of recurrent SVT then you need to follow-up with Dr. Ramirez. Return to the ER for having chest pain, shortness of air or other worrisome symptoms. Phenergan 1 tablet every 6 hours as needed for nausea or vomiting. Scripts Promethazine HCl (Promethazine Tablet) 25 Mg Tablet 25 MG PO Q6H PRN for NAUSEA/VOMITING, #8 TAB 0 Refills Prov: SUSANA JONES 07/21/21 Copy Copies To 1: SCOT RAMIREZ MD, TITUS J Jul 21, 2021 22:07
[2021-07-21 22:13] LABS: ALBUMIN 4.2 GM/DL (3.2-4.5); POTASSIUM 3.5 MMOL/L (3.6-5.0)
[2021-07-21 22:15] LABS: CALCIUM 9.3 MG/DL (8.5-10.1)
[2021-07-21 22:16] LABS: TOTAL PROTEIN 6.8 GM/DL (6.4-8.2)
[2021-07-21 22:18] LABS: BILIRUBIN,TOTAL 0.3 MG/DL (0.1-1.0)
[2021-07-21 22:20] LABS: CREATININE SERUM 0.9 MG/DL (0.60-1.30)
[2021-07-21 22:22] LABS: MAGNESIUM 2.2 MG/DL (1.6-2.4)
--- NOTE | 2021-07-21 22:27 | Diagnostic Imaging Report ---
EXAMINATION: Chest 1 view. HISTORY: Chest pain. COMPARISON: 09/29/2019. FINDINGS: The lung volumes are normal. No focal consolidation is seen. No large pleural effusion or pneumothorax is seen. The cardiomediastinal silhouette is normal in size and contour. No acute osseous abnormality is seen. IMPRESSION: No acute pleuroparenchymal process. Dictated by: Dictated on workstation # [id number]
[2021-07-21] MEDS ORDERED: PROM25TA14 PO (23:01)
[2021-07-21 23:03] VITALS: BP 127/67
== END 2021-07-21 23:06 | disposition home or self-care (01) ==
LOC: EDUNIT# 21:42 → ER 21:43
DX: I47.1 Supraventricular tachycardia (principal)
CPT/HCPCS: 36415; 71045; 80053; 83735; 83874; 84484; 85025; 93005

== ENCOUNTER → 2021-08-22 | Outpatient (CLI) | payer OTHER ==
[~2021-08-22] MED LIST changes: +HYDR-4085 PO; -HYDR-87 PO
--- NOTE | 2021-08-22 18:32 | Diagnostic Imaging Report ---
INDICATION: Routine screening. COMPARISON: Prior mammograms from 06/21/2020 and 08/31/2018. EXAMINATION: 2D and 3D bilateral screening mammography was performed with CAD. The current study was also evaluated with a Computer Aided Detection (CAD) system. FINDINGS: Both breasts are heterogeneously dense, limiting the sensitivity of mammography. There are circumscribed nodules in both breasts which appear stable. A biopsy marker clip in left breast is again noted. No spiculated mass or malignant-appearing microcalcifications are identified. Axillae are unremarkable. IMPRESSION: No mammographic features suspicious for malignancy are identified. ACR BI-RADS Category 2: Benign findings. Result letter will be mailed to the patient. Note: At least 10% of breast cancer is not imaged by mammography. Dictated by: Dictated on workstation # [id number]
== END ==
LOC: RAD 14:30
PROVIDERS: ATTEND Family Medicine
DX: Z12.31 Encounter for screening mammogram for malignant neoplasm of breast (principal)
CPT/HCPCS: 77063; 77067

== ENCOUNTER → 2021-10-19 | Outpatient (CLI) | payer OTHER ==
--- NOTE | 2021-10-19 12:02 | Diagnostic Imaging Report ---
INDICATION: Cough. COMPARISON: 07/21/2021. FINDINGS: Frontal and lateral views of the chest demonstrate normal heart size and pulmonary vascularity. The lungs are clear. There are no signs of infiltrate, pleural effusions or pneumothoraces. The visualized osseous structures show no acute abnormalities. IMPRESSION: 1. No acute process. No signs of infiltrates, effusions or pneumothoraces. Dictated by: Dictated on workstation # [id number]
== END ==
LOC: RAD 11:24
PROVIDERS: ATTEND Family Medicine
DX: R05.9 Cough, unspecified (principal); R07.89 Other chest pain
CPT/HCPCS: 71046

== ENCOUNTER 2021-11-03 22:50 | Emergency (ER) | payer OTHER ==
[2021-11-03] MEDS ORDERED: methylPREDNISolone 125 MG (Solu-MEDROL) VIAL IV STA (23:06)
--- NOTE | 2021-11-03 23:09 | ED Chest Pain ---
General Chief Complaint: Chest Pain Stated Complaint: ASTHMA,SVT,CP Source: patient Exam Limitations: no limitations History of Present Illness Date Seen by Provider: Nov 03, 2021 Time Seen by Provider: 23:00 Initial Comments Patient to ER by private conveyance from home with chief complaint she is having some shortness of air and chest pain substernal nonradiating. She does not have a history of heart disease but she does have a history of SVT and asthma. She took a albuterol inhaler at 9:00 and then 2 more rounds of 2 puffs of albuterol and a course of Atrovent by MDI just before coming in. She had a viral pneumonia and has had done 2 weeks of 2 different steroid tapers. She is just finishing up a round of steroids. She is not on antibiotics. She is not having any fevers nausea vomiting diarrhea. She had negative COVID swabs early on. Allergies and Home Medications Allergies Coded Allergies: morphine (Unverified Allergy, Severe, VOMITING, 12/13/10) latex (Unverified Allergy, Mild, RASH, 12/13/10) ondansetron (Unverified Allergy, Mild, Rash at IV site, 02/25/06) iron (Verified Allergy, Unknown, 02/23/06) metoclopramide (Verified Allergy, Unknown, 02/23/06) Patient Home Medication List Home Medication List Reviewed: Yes Cholecalciferol (Vitamin D3) (Vitamin D3) 50 Mcg Capsule, 100 MCG PO DAILY, (Reported) Entered as Reported by: MODESTA RUBIN on 09/29/19920 Hydrochlorothiazide (Hydrochlorothiazide) 25 Mg Tablet, 25 MG PO DAILY, (Reported) Entered as Reported by: MODESTA RUBIN on 09/29/19920 Hydrocodone/Acetaminophen (Hydrocodone-Acetamin 7.5-325) 1 Each Tablet, 2 EA PO HS, (Reported) Entered as Reported by: MODESTA RUBIN on 09/29/19920 Lorazepam (Ativan) 0.5 Mg Tablet, 0.5-1 MG PO TID PRN for ANXIETY Prescribed by: SUSANA JONES on 11/04/21 010 Metoprolol Succinate (Metoprolol Succinate) 25 Mg Tab.er.24h, 25 MG PO HS, (Reported) Entered as Reported by: MODESTA RUBIN on 09/29/19920 Multivitamin (Multivitamin) 1 Each Tablet, 1 EACH PO DAILY, (Reported) Entered as Reported by: MODESTA RUBIN on 09/29/19920 Potassium Citrate (Potassium Citrate ER) 10 Meq Tablet.er, 10 MEQ PO DAILY, (Reported) Entered as Reported by: MODESTA RUBIN on 09/29/19920 Promethazine HCl (Promethazine Tablet) 25 Mg Tablet, 25 MG PO Q6H PRN for NAUSEA/VOMITING Prescribed by: SUSANA JONES on 07/21/21 2301 Review of Systems Review of Systems Constitutional: No chills, No diaphoresis EENTM: No Blurred Vision, No Double Vision Respiratory: Denies Cough, Denies Orthopnea Cardiovascular: Denies Chest Pain, Denies Edema Gastrointestinal: Denies Abdomen Distended, Denies Abdominal Pain Genitourinary: Denies Burning, Denies Discharge Musculoskeletal: No back pain, No joint pain Skin: No pruritus, No rash Psychiatric/Neurological: Denies Headache, Denies Numbness All Other Systems Reviewed Negative Unless Noted: Yes Past Fpfhaxq-[id number]-Utfyaa Hx Patient Social History Tobacco Use?: No Use of E-Cig and/or Vaping dev: No Immunizations Up To Date Tetanus Booster (TDap): More than 5yrs Seasonal Allergies Seasonal Allergies: Yes Past Medical History Surgery/Hospitalization HX: appy, gabi, ortho, renal, cardiac cath, svt, asthma, ov. cyst, renal stone, colitis, esophogitis, htn Surgeries: Yes Appendectomy, Gallbladder, Orthopedic, Renal Respiratory: Yes Asthma Cardiac: No (ABNORMAL STRESS TEST AND CARDIAC CATH 2014--NO INTERVENTION/MILD DISEASE) Coronary Artery Disease, Hypertension Neurological: No Reproductive Disorders: Yes Female Reproductive Disorders: Ovarian Cyst Sexually Transmitted Disease: No Genitourinary: Yes Kidney Stones Gastrointestinal: Yes ( GABI AND APPY) Colitis, Esophagitis, Gall Bladder Disease Musculoskeletal: Yes Fractures Endocrine: Yes (HYPERGLYCEMIA IN PAST) HEENT: No Cancer: No Psychosocial: No Integumentary: No Blood Disorders: No Adverse Reaction/Blood Tranf: No Family Medical History AORTIC VALVE REPLACEMENT 19 FATHER G8 SISTER FH: congestive heart failure G8 SISTER Bicuspid aortic valve in two siblings Physical Exam Vital Signs Vital Signs - First Documented 11/03/21 23:05 Temp 36.8 Pulse 98 Resp 20 B/P (MAP) 154/97 (116) Pulse Ox 94 O2 Delivery Room Air Capillary Refill : Height, Weight, BMI Height: 5'3.00" Weight: 206lbs. 0.0oz. 93.034335ml; 34.00 BMI Method:Stated General Appearance: WD/WN, Anxious, Mild Distress HEENT: PERRL/EOMI, Pharynx Normal; No Moist Mucous Membranes (mildly dry mm) Neck: Full Range of Motion, Normal Inspection Respiratory: Lungs Clear, Normal Breath Sounds, Accessory Muscle Use, Respiratory Distress Cardiovascular: Regular Rate, Rhythm, No Edema, Normal Peripheral Pulses, Tachycardia (101) Gastrointestinal: Non Tender, Soft Extremity: Normal Inspection, Normal Range of Motion, No Pedal Edema Neurologic/Psychiatric: Alert, Oriented x3 Skin: Normal Color, Warm/Dry Progress/Results/Core Measures Results/Orders Lab Results Laboratory Tests Test 11/03/21 00:17 11/03/21 23:15 11/03/21 23:20 11/03/21 23:57 Range/Units White Blood Count 18.2 H 4.3-11.0 10^3/uL Red Blood Count 4.61 3.80-5.11 10^6/uL Hemoglobin 13.2 11.5-16.0 g/dL Hematocrit 40 35-52 % Mean Corpuscular Volume 87 80-99 fL Mean Corpuscular Hemoglobin 29 25-34 pg Mean Corpuscular Hemoglobin Concent 33 32-36 g/dL Red Cell Distribution Width 14.4 10.0-14.5 % Platelet Count 283 130-400 10^3/uL Mean Platelet Volume 9.8 9.0-12.2 fL Immature Granulocyte % (Auto) 1 % Neutrophils (%) (Auto) 82 H 42-75 % Lymphocytes (%) (Auto) 11 L 12-44 % Monocytes (%) (Auto) 6 0-12 % Eosinophils (%) (Auto) 0 0-10 % Basophils (%) (Auto) 0 0-10 % Neutrophils # (Auto) 14.8 H 1.8-7.8 10^3/uL Lymphocytes # (Auto) 2.1 1.0-4.0 10^3/uL Monocytes # (Auto) 1.1 H 0.0-1.0 10^3/uL Eosinophils # (Auto) 0.0 0.0-0.3 10^3/uL Basophils # (Auto) 0.0 0.0-0.1 10^3/uL Immature Granulocyte # (Auto) 0.1 0.0-0.1 10^3/uL Neutrophils % (Manual) 83 % Lymphocytes % (Manual) 12 % Monocytes % (Manual) 2 % Eosinophils % (Manual) 1 % Atypical Lymphocytes 2 % Platelet Estimate NORMAL Poikilocytosis SLIGHT Anisocytosis SLIGHT Prothrombin Time 12.2 12.2-14.7 SEC INR Comment 0.9 0.8-1.4 Activated Partial Thromboplast Time 23 L 24-35 SEC D-Dimer <= 0.27 0.00-0.49 UG/ML Sodium Level 137 135-145 MMOL/L Potassium Level 3.9 3.6-5.0 MMOL/L Chloride Level 100 98-107 MMOL/L Carbon Dioxide Level 21 21-32 MMOL/L Anion Gap 16 H 5-14 MMOL/L Blood Urea Nitrogen 16 7-18 MG/DL Creatinine 0.92 0.60-1.30 MG/DL Estimat Glomerular Filtration Rate 78 BUN/Creatinine Ratio 17 Glucose Level 162 H 70-105 MG/DL Calcium Level 9.5 8.5-10.1 MG/DL Corrected Calcium 9.5 8.5-10.1 MG/DL Magnesium Level 2.0 1.6-2.4 MG/DL Total Bilirubin 0.2 0.1-1.0 MG/DL Aspartate Amino Transf (AST/SGOT) 9 5-34 U/L Alanine Aminotransferase (ALT/SGPT) 22 0-55 U/L Alkaline Phosphatase 59 40-136 U/L Myoglobin 13.6 10.0-92.0 NG/ML Troponin I < 0.028 <0.028 NG/ML B-Type Natriuretic Peptide < 10.0 <100.0 PG/ML Total Protein 7.2 6.4-8.2 GM/DL Albumin 4.0 3.2-4.5 GM/DL Lipase 33 8-78 U/L Influenza Type A (RT-PCR) Not Detected Not Detecte Influenza Type B (RT-PCR) Not Detected Not Detecte SARS-CoV-2 RNA (RT-PCR) Not Detected Not Detecte Bedside Blood Gas pH (LAB) 7.555 H 7.310-7.410 Bedside Blood Gas pCO2 (LAB) 27.1 L 41.0-51.0 mmHg Bedside Blood Gas pO2 (LAB) 107 H 80-105 mmHg Bedside Blood Gas HCO3 (LAB) 24.0 23.0-28.0 mmol/L POC Blood Gas Total CO2 Calc 25 24-29 mmol/L Bedside Bl Gas O2 Saturation (Calc) 99 H 95-98 % Bedside Arterial Blood Base Excess 2 -2-3 mmol/L My Orders Orders - SUSANA JONES Ekg Tracing (11/03/21 23:) Cbc With Automated Diff (11/03/21:) Magnesium (11/03/21:) Chest 1 View, Ap/Pa Only (11/03/21 23:) Comprehensive Metabolic Panel (11/03/21:) Myoglobin Serum (11/03/21:) Protime With Inr (11/03/21:) Partial Thromboplastin Time (11/03/21 23:06) O2 (11/03/21:) Monitor-Rhythm Ecg Trace Only (11/03/21:) Ed Iv/Invasive Line Start (11/03/21 23:06) Lipase (11/03/21 23:06) Bnp Blake (11/03/21 23:06) Fibrin Degradation Products (11/03/21 23:06) Troponin I Blake (11/03/21 23:06) Aspirin Chewable Tablet (Baby Aspirin Ch (11/03/21 23:15) Albuterol/Ipra Inhalation Soln (Duoneb I (11/03/21 23:15) Methylprednisolone Sod Succ (Solu-Medrol (11/03/21 23:06) Svn Small Volume Nebulizer (11/03/21 23:06) Ed Iv/Invasive Line Start (11/03/21 23:09) Ns Iv 1000 Ml (Sodium Chloride 0.9%) (11/03/21 23:15) Covid 19 Inhouse Test (11/03/21 23:09) Influenza A And B By Pcr (11/03/21 23:09) Mycoplasma Antibodies (11/03/21 23:09) Respiratory Virus Panel By Pcr (11/03/21 23:20) Arterial Blood Draw - Obtain (11/03/21 ) Manual Differential (11/03/21 00:17) Lorazepam Injection (Ativan Injection) (11/04/21 01:15) Medications Given in ED Vital Signs/I&O 11/03/21 11/03/21 11/04/21 23:05 23:30 01:28 Temp 36.8 36.8 Pulse 98 86 Resp 20 18 B/P (MAP) 154/97 (116) 163/75 Pulse Ox 94 98 97 O2 Delivery Room Air Room Air Room Air Progress Progress Note #1: Time: 23:33 Progress Note DuoNeb, viral respiratory panel, COVID swab, chest x-ray, labs. We will give her 125 mg Solu-Medrol. She does not have any audible wheezing on auscultation but it is possible she has significant closed airways that we are not able to hear the small airway wheezing. She is tachypneic and tachycardic around 105 heart rate. ABG. Concerned that perhaps she has become alkalotic. Progress Note #2: Time: 01:04 Progress Note Moderate leukocytosis likely due to the steroids. She appears to be experiencing respiratory alkalosis probably contributing to her symptoms of near panic, shortness of air etc. We will have a rebreather but we can give her an Ativan. We did offer her a stay in the hospital versus going home and she would prefer to go home. We sent off for a respiratory viral panel as well as mycoplasma. She can finish her steroids tomorrow and follow-up with primary care. Initial ECG Impression Date: Nov 03, 2021 Initial ECG Impression Time: 23:15 Initial ECG Rate: 94 Initial ECG Rhythm: Normal Sinus Initial ECG Intervals: Normal Initial ECG Impression: Normal Initial ECG Comparisson: No Previous ECG Available Comment Normal sinus rhythm, no clinically relevant ST elevation or depression. Diagnostic Imaging Diagonstic Imaging: Xray Plain Films/CT/US/NM/MRI: chest Comments [facility] [place], [place] NAME: ELEANOR LINARES MED REC#: [id number] PT STATUS: DEP ER : 1975 PHYSICIAN: SUSANA JONES MD ADMIT DATE: 11/03/21/ER Signed Date of Exam:11/03/21 CHEST 1 VIEW, AP/PA ONLY EXAMINATION: Chest 1 view HISTORY: Chest pain COMPARISON: 07/21/2021 FINDINGS: The lungs are clear without edema or pneumonia. No pleural effusion or pneumothorax. Heart size is normal. IMPRESSION: 1. Clear lungs. Dictated by: Dictated on workstation # [id number] Dict: 11/04/21705 Trans: 11/04/21902 [facility] [id number] Interpreted by: MARSHALL MOCTEZUMA MD Electronically signed by: MARSHALL MOCTEZUMA MD 11/04/21902 Reviewed: Reviewed by Me Departure Impression Primary Impression: Acute respiratory alkalosis Disposition: HOME, SELF-CARE Condition: Stable Departure-Patient Inst. Decision time for Depature: 01:06 Referrals: LEANDRO WELCH MD (PCP/Family) Primary Care Physician Patient Instructions: Chest Pain That Is Not Caused by the Heart (DC) Add. Discharge Instructions: Acute respiratory alkalosis will present similar to panic attack. I suggest you take the Ativan 1 mg every 8 hours if you have repeat symptoms. As well to slow down your breathing. Finish out your steroids today. Return to the ER promptly if you are having significantly worsening symptoms. We did send out some tests for mycoplasma as well as a respiratory viral panel that you can review with your primary care doctor in follow-up. All discharge instructions reviewed with patient and/or family. Voiced understanding. Scripts Lorazepam (Ativan) 0.5 Mg Tablet 0.5-1 MG PO TID PRN for ANXIETY for 7 Days, #20 TAB 0 Refills Prov: SUSANA JONES 11/04/21 Work/School Note: Work Release Form Date Seen in the Emergency Department: Nov 04, 2021 Return to Work: Nov 06, 2021 Restrictions: No Restrictions SUSANA JONES Nov 03, 2021 23:09
[2021-11-03] MEDS ORDERED: NS IV 1000 ML 1,000 ML IV SCH (23:15)
[2021-11-03] MEDS ORDERED: RT-ALBUTEROL/IPRATROPIUM 3 ML (DUONEB) VIAL INH ONE (23:15)
[2021-11-03] MEDS ORDERED: ASPIRIN 81 MG CHEW (CHILDREN'S ASA) PO ONE (23:15)
[2021-11-04 00:26] LABS: BASOPHILS % (AUTO) 0 % (0-10); EOSINOPHILS % (AUTO) 0 % (0-10); HEMATOCRIT 40 % (35-52); HEMOGLOBIN 13.2 g/dL (11.5-16.0); LYMPHOCYTES # (AUTO) 2.1 10^3/uL (1.0-4.0); LYMPHOCYTES % (AUTO) 11 % (12-44); MEAN CORPUSCULAR HEMOGLOBIN 29 pg (25-34); MEAN CORPUSCULAR HGB CONC 33 g/dL (32-36); MEAN CORPUSCULAR VOLUME 87 fL (80-99); MEAN PLATELET VOLUME 9.8 fL (9.0-12.2); MONOCYTES # (AUTO) 1.1 10^3/uL (0.0-1.0); MONOCYTES % (AUTO) 6 % (0-12); NEUTROPHILS # (AUTO) 14.8 10^3/uL (1.8-7.8); NEUTROPHILS % (AUTO) 82 % (42-75); PLATELET COUNT 283 10^3/uL (130-400); WHITE BLOOD COUNT 18.2 10^3/uL (4.3-11.0)
[2021-11-04 00:45] LABS: INR 0.9 (0.8-1.4); PROTHROMBIN TIME PATIENT 12.2 SEC (12.2-14.7)
[2021-11-04 00:55] LABS: BILIRUBIN,TOTAL 0.2 MG/DL (0.1-1.0); CALCIUM 9.5 MG/DL (8.5-10.1); CREATININE SERUM 0.92 MG/DL (0.60-1.30); POTASSIUM 3.9 MMOL/L (3.6-5.0); TOTAL PROTEIN 7.2 GM/DL (6.4-8.2)
[2021-11-04] MEDS ORDERED: LORazepam 0.5 MG (ATIVAN) TABLET PO STA (01:03)
[2021-11-04] MEDS ORDERED: LORA-404 PO (01:08)
[2021-11-04 01:14] LABS: ATYPICAL LYMPHOCYTES 2 %; EOSINOPHILS % (MANUAL) 1 %; LYMPHOCYTES % (MANUAL) 12 %; MONOCYTES % (MANUAL) 2 %; NEUTROPHILS % (MANUAL) 83 %
[2021-11-04 01:15] LABS: ANISOCYTOSIS SLIGHT; PLATELET ESTIMATE NORMAL; POIKILOCYTOSIS SLIGHT
[2021-11-04] MEDS ORDERED: LORazepam INJ 2 MG/ML (ATIVAN) VIAL IVP ONE (01:15)
[2021-11-04 01:28] VITALS: BP 163/75
--- NOTE | 2021-11-04 07:07 | Diagnostic Imaging Report ---
EXAMINATION: Chest 1 view HISTORY: Chest pain COMPARISON: 07/21/2021 FINDINGS: The lungs are clear without edema or pneumonia. No pleural effusion or pneumothorax. Heart size is normal. IMPRESSION: 1. Clear lungs. Dictated by: Dictated on workstation # [id number]
[2021-11-06 11:48] LABS: PARAINFLU 1 PCR Not Detected (Not Detected); PARAINFLU 2 PCR Not Detected (Not Detected); RSV PCR TEST Not Detected (Not Detected)
== END 2021-11-04 01:28 | disposition home or self-care (01) ==
LOC: EDUNIT# 22:50 → ER 22:52
DX: E87.3 Alkalosis (principal); Z91.040 Latex allergy status; Z20.822 Contact with and (suspected) exposure to COVID-19
CPT/HCPCS: 36415; 36600; 71045; 80053; 82805; 83690; 83735; 83874; 83880; 84484; 85007; 85027; 85379; 85610; 85730; 86738; 87632; 87636; 93005; 93041; 94640; 94664

== ENCOUNTER → 2021-11-09 | Outpatient (CLI) | payer OTHER ==
[~2021-11-09] MED LIST changes: +LORA-404 PO
--- NOTE | 2021-11-09 17:14 | Diagnostic Imaging Report ---
PROCEDURE: Pelvic comp/transvaginal sonogram. TECHNIQUE: Complete transabdominal and transvaginal pelvic ultrasound was performed. In addition, limited pelvic Doppler was performed. INDICATION: Abnormal uterine bleeding. FINDINGS: Uterus is anteverted measuring 7.9 x 5.3 x 6.0 cm. Endometrium is 9 mm in thickness. There is an area of myometrial heterogeneity in the anterior right uterus measuring 2.2 x 1.7 x 2.6 cm, suggestive of a fibroid. There is some mild internal vascularity. Right ovary was not visualized. Left ovary could not be visualized due to bowel gas. No adnexal mass or free fluid is seen. IMPRESSION: 1. Probable uterine fibroid. 2. Nonvisualized ovaries. Dictated by: Dictated on workstation # [id number]
== END ==
LOC: RAD 13:45
PROVIDERS: ATTEND Obstetrics & Gynecology
DX: N93.9 Abnormal uterine and vaginal bleeding, unspecified (principal)
CPT/HCPCS: 76830; 76856

== ENCOUNTER 2021-12-12 05:31 | Outpatient (CLI) | payer OTHER ==
[~2021-12-12] VITALS: Ht 162 cm; Wt 89.0 kg
[2021-12-12] MEDS ORDERED: FLUT1BLS12 IH (08:57)
[2021-12-12] MEDS ORDERED: DULO30CA49 PO (08:57)
[2021-12-12] MEDS ORDERED: ALB0.5V INH (08:57)
[2021-12-12] MEDS ORDERED: NORE-18 PO (08:57)
[2021-12-12] MEDS ORDERED: CEFP500T4 PO (08:57)
[2021-12-12] MEDS ORDERED: LEVA15HF5 IH (08:57)
[2021-12-12] MEDS ORDERED: SEMA0.25 SQ (10:09)
== END 2021-12-12 10:59 ==
LOC: PREOP 05:31
PROVIDERS: ATTEND Obstetrics & Gynecology
DX: Z01.818 Encounter for other preprocedural examination (principal)

== ENCOUNTER 2021-12-17 09:34 | Day surgery (SDC) | payer OTHER ==
[2021-12-17] VITALS (11 sets, daily range): BP systolic 90–128; BP diastolic 49–83
[~2021-12-17] VITALS: Ht 162 cm; Wt 89.0 kg
[~2021-12-17 09:34] MED LIST changes: +ALB0.5V INH; +CEFP500T4 PO; +DULO30CA49 PO; +FLUT1BLS12 IH; +LEVA15HF5 IH; +NORE-18 PO; +SEMA0.25 SQ
--- NOTE | 2021-12-17 10:07 | Progress Note-Pre Operative ---
Pre-Operative Progress Note Date of Available H&P: Dec 17, 2021 Date H&P Reviewed: Dec 17, 2021 Time H&P Reviewed: 10:00 History & Physical: H&P Reviewed, Patient Examed, No changes noted Pre-Operative Diagnosis: JOSELO STEINBERG DO Dec 17, 2021 10:07
--- NOTE | 2021-12-17 10:08 | Discharge Inst-Women's Service ---
Discharge Inst-Women's Serv Depart Medication/Instructions New, Converted or Re-Newed RX: Other (OTC NSAIDs) Problems Reviewed?: Yes Consults/Follow Up Additional Follow Up: Yes Activity Activity: Activity as Tolerated Driving Instructions: No Driving for 1 Week NO SMOKING: NO SMOKING Nothing Inside Vagina: No Douching, No [place], No Tampons Diet Discharge Diet: No Restrictions Symptoms to Report to : Bleeding Excessive, Pain Increased, Fever Over 101 Degrees F, Vaginal Bleeding Increase, Questions/Concerns For Any Problems or Questions: Contact Your Physician JOSELO LUIS DO Dec 17, 2021 10:08
[2021-12-17] MEDS ORDERED: KETOROLAC 30 MG/ML VIAL IVP ONE (10:15)
[2021-12-17] MEDS ORDERED: D5 LR IV SOLUTION 1,000 ML IV SCH (10:15)
[2021-12-17] MEDS ORDERED: BUPIVACAINE 0.25% 30 ML (SENSORCAINE) VIAL ONE (10:40)
[2021-12-17] MEDS ORDERED: BUPIVACAINE 0.25% 30 ML (SENSORCAINE) VIAL INJ ONE (10:41)
[2021-12-17 11:06] LABS: BASOPHILS % (AUTO) 1 % (0-10); EOSINOPHILS # (AUTO) 0.1 10^3/uL (0.0-0.3); EOSINOPHILS % (AUTO) 2 % (0-10); HEMATOCRIT 37 % (35-52); HEMOGLOBIN 12.4 g/dL (11.5-16.0); LYMPHOCYTES # (AUTO) 1.4 10^3/uL (1.0-4.0); LYMPHOCYTES % (AUTO) 20 % (12-44); MEAN CORPUSCULAR HEMOGLOBIN 28 pg (25-34); MEAN CORPUSCULAR HGB CONC 34 g/dL (32-36); MEAN CORPUSCULAR VOLUME 84 fL (80-99); MEAN PLATELET VOLUME 10.3 fL (9.0-12.2); MONOCYTES # (AUTO) 0.5 10^3/uL (0.0-1.0); MONOCYTES % (AUTO) 8 % (0-12); NEUTROPHILS # (AUTO) 4.7 10^3/uL (1.8-7.8); NEUTROPHILS % (AUTO) 70 % (42-75); PLATELET COUNT 201 10^3/uL (130-400); WHITE BLOOD COUNT 6.7 10^3/uL (4.3-11.0)
[2021-12-17] MEDS: LACTATED RINGERS 1,000 ML IV PRN ×2 (11:09→12:12)
[2021-12-17] MEDS ORDERED: MIDAZOLAM 2 MG/2 ML (VERSED) VIAL ONE (11:41)
[2021-12-17] MEDS ORDERED: LIDOCAINE PF 2% 5 ML (XYLOCAINE) VIAL ONE (11:41)
[2021-12-17] MEDS ORDERED: proPOfol 200 MG/20 ML (DIPRIVAN) VIAL IV ONE ×2 (11:41→11:54)
[2021-12-17] MEDS ORDERED: fentaNYL INJ 100 MCG/2 ML AMP ONE ×2 (11:41→12:45)
[2021-12-17] MEDS ORDERED: SEVOFLURANE (ULTANE) 15 ML INHAL SOLN ONE (12:13)
[2021-12-17] MEDS ORDERED: KETOROLAC 30 MG/ML VIAL ONE (12:24)
[2021-12-17] MEDS ORDERED: fentaNYL INJ 100 MCG/2 ML AMP IVP ONE (12:30)
--- NOTE | 2021-12-17 13:02 | Anesthesia-General Post-Op ---
General Patient Condition Mental Status/LOC: Same as Preop Cardiovascular: Satisfactory Nausea/Vomiting: Absent Respiratory: Satisfactory Pain: Controlled Complications: Absent Post Op Complications Complications None Follow Up Care/Instructions Patient Instructions None needed. Anesthesia/Patient Condition Patient Condition Patient is doing well in PACU with no complaints, stable vital signs, no apparent adverse anesthesia problems. No complications reported per nursing. FREDY FOSS DO Dec 17, 2021 13:02
[2021-12-17] MEDS ORDERED: HYDROcodone/APAP 5 MG/325 MG (LORTAB) TAB ONE (13:30)
[2021-12-17] MEDS ORDERED: HYDROcodone/APAP 5 MG/325 MG (LORTAB) TAB PO ONE (13:30)
--- NOTE | 2021-12-17 17:53 | OPERATIVE REPORT ---
DATE OF SERVICE: PREOPERATIVE DIAGNOSIS: A 46-year-old female with abnormal uterine bleeding. POSTOPERATIVE DIAGNOSIS: A 46-year-old female with abnormal uterine bleeding. PROCEDURE PERFORMED: D and C. SURGEON: Joselo Luis DO. ANESTHESIA: LMA general. ESTIMATED BLOOD LOSS: Minimal. URINE OUTPUT: 50 mL drained at the start of the procedure. FLUIDS: 800 mL of lactated Ringer's solution. FINDINGS: Grossly normal appearing external female genitalia with a moderate amount of endometrial tissue collected on D and C. SPECIMEN SENT: Endometrial curettings. INDICATIONS FOR PROCEDURE: This 46-year-old female is a patient, who sought care in my office for abnormal heavy bleeding. She had a diagnosis of a fibroid in the past and imaging studies had revealed this as well. However, she wished to proceed with more aggressive measures of managing this. I discussed with the patient need for endometrial sampling due to her history. The risks of procedure were discussed with the patient in detail. After all her questions were answered, she was agreeable to proceed with D and C versus endometrial biopsy in the office. A consent was obtained in the preoperative area and the patient was taken to the operating room. OPERATIVE REPORT IN DETAIL: Once in the operating room, anesthesia was found to be adequate, she was placed in the dorsal lithotomy position, and prepped and draped in a normal sterile fashion. A timeout was performed. A weighted speculum was inserted in the patient's vagina. Right angle retractor was utilized to visualize the cervix, which was grasped at 12 o'clock position using a long Allis clamp. I then performed a paracervical block at 3 and 9 o'clock positions on the cervix. Care was taken to aspirate before injecting, 5 mL of 0.25% Marcaine injected into each site. I then gently sounded the uterine cavity, depth was found to be 8 cm. I then gently dilated the cervix using Layton's dilators to maximum dilatation approximately 1 cm. At that point, I performed a gentle curettage of the endometrium using a medium size endometrial curette. All this tissue was collected and sent as endometrial curettings. I then removed all other instruments from the patient's vagina. The patient tolerated the procedure well and was sent to recovery area in stable condition. Lap and sponge counts were correct at the end of the procedure. Instrument counts correct as well. Job ID: [id number] DocumentID: [id number] Dictated Date: 12/17/2021 12:49:10 Business Coordinator Date: 12/17/2021 17:52:46 Dictated By: JOSELO LUIS DO
== END 2021-12-17 14:15 | disposition home or self-care (01) ==
LOC: SDC 09:34
PROVIDERS: ATTEND Obstetrics & Gynecology
DX: N93.8 Other specified abnormal uterine and vaginal bleeding (principal); E66.01 Morbid (severe) obesity due to excess calories; Z68.33 Body mass index [BMI] 33.0-33.9, adult; D25.9 Leiomyoma of uterus, unspecified
CPT/HCPCS: 36415; 84703; 85025; 86850; 86900; 86901; 87081

== ENCOUNTER 2022-01-22 05:28 | Outpatient (CLI) | payer OTHER ==
[~2022-01-22] VITALS: Ht 162 cm; Wt 89.0 kg
[~2022-01-22 05:28] MED LIST changes: +ALBU8.5H6 IH; -RT-ALBUINH IH
[2022-01-25] MEDS ORDERED: PROM25TA14 PO (15:36)
[2022-01-25] MEDS ORDERED: L.AC1CAP6 PO (15:36)
[2022-01-25] MEDS ORDERED: DICY10CA12 PO (15:36)
[2022-01-25] MEDS ORDERED: RT-ALBUINH INH (15:36)
[2022-01-25] MEDS ORDERED: LORA-405 PO (15:36)
[2022-01-25] MEDS ORDERED: SEMA0.25 SQ (15:36)
[2022-01-25] MEDS ORDERED: HYDR-3817 PO (15:36)
== END 2022-01-25 09:08 | disposition home or self-care (01) ==
LOC: PREOP 05:28
PROVIDERS: ATTEND Obstetrics & Gynecology
DX: Z01.818 Encounter for other preprocedural examination (principal)

== ENCOUNTER 2022-01-28 06:36 | Day surgery (SDC) | payer OTHER ==
[2022-01-28] VITALS (12 sets, daily range): BP systolic 80–139; BP diastolic 42–71
[~2022-01-28] VITALS: Ht 162 cm; Wt 89.0 kg
[~2022-01-28 06:36] MED LIST changes: +DICY10CA12 PO; +L.AC1CAP6 PO; +LORA-405 PO; +RT-ALBUINH INH
[2022-01-28] MEDS ORDERED: ceFAZolin INJECTION 2,000 MG in NS (IVPB) 50 ML IV ONE (07:00)
[2022-01-28] MEDS ORDERED: metroNIDAZOLE 500MG/100ML IVPB 100 ML IV ONE (07:00)
[2022-01-28] MEDS: LACTATED RINGERS 1,000 ML IV PRN ×2 (07:15→10:25)
--- NOTE | 2022-01-28 07:25 | Progress Note-Pre Operative ---
Pre-Operative Progress Note Date of Available H&P: Jan 28, 2022 Date H&P Reviewed: Jan 28, 2022 Time H&P Reviewed: 08:30 History & Physical: H&P Reviewed, Patient Examed, No changes noted Pre-Operative Diagnosis: AuB, Chronic blood loss anemia JOSELO LUIS DO Jan 28, 2022 07:25
[2022-01-28] MEDS ORDERED: SIMETHICONE 80 MG (MYLICON) CHEW PO PRN (07:30)
[2022-01-28] MEDS ORDERED: ZOLPIDEM 5 MG (AMBIEN) TAB PO PRN (07:30)
[2022-01-28] MEDS ORDERED: CEPACOL SORE THROAT-COUGH LOZENGE MM PRN (07:30)
[2022-01-28] MEDS ORDERED: ANTACID SUSP 30 ML UDC (MYLANTA) PO PRN (07:30)
[2022-01-28] MEDS ORDERED: HYDROcodone/APAP 7.5 MG/325 MG (LORTAB, LORCET PLUS) TABLET PO PRN (07:30)
[2022-01-28] MEDS ORDERED: DOCUSATE SODIUM 100 MG (COLACE) CAP PO PRN (07:30)
[2022-01-28 07:32] LABS: BASOPHILS % (AUTO) 1 % (0-10); EOSINOPHILS # (AUTO) 0.2 10^3/uL (0.0-0.3); EOSINOPHILS % (AUTO) 2 % (0-10); HEMATOCRIT 39 % (35-52); HEMOGLOBIN 12.6 g/dL (11.5-16.0); LYMPHOCYTES # (AUTO) 2.1 10^3/uL (1.0-4.0); LYMPHOCYTES % (AUTO) 28 % (12-44); MEAN CORPUSCULAR HEMOGLOBIN 28 pg (25-34); MEAN CORPUSCULAR HGB CONC 33 g/dL (32-36); MEAN CORPUSCULAR VOLUME 86 fL (80-99); MEAN PLATELET VOLUME 9.7 fL (9.0-12.2); MONOCYTES # (AUTO) 0.5 10^3/uL (0.0-1.0); MONOCYTES % (AUTO) 7 % (0-12); NEUTROPHILS # (AUTO) 4.6 10^3/uL (1.8-7.8); NEUTROPHILS % (AUTO) 62 % (42-75); PLATELET COUNT 266 10^3/uL (130-400); WHITE BLOOD COUNT 7.5 10^3/uL (4.3-11.0)
[2022-01-28] MEDS ORDERED: BUPIVACAINE 0.25% 30 ML (SENSORCAINE) VIAL ONE (07:32)
--- NOTE | 2022-01-28 08:20 | History & Physical-Surgical ---
HPO-Surgical History of Present Illness Chief Complaint: Heavy periods Diagnosis/Surgical Indication: AuB, Chronic blood loss anemia Procedure: ROBOTIC ASSISTED TOTAL LAPAROSCOPIC HYSTERECTOMY AND POSSIBLE BSO Date of Surgery: Jan 28, 2022 Weight (Pounds): 206 Weight (Ounces): 0.0 Height (Feet): 5 Height (Inches): 3.00 Allergies and Home Medications Allergies Coded Allergies: morphine (Unverified Allergy, Severe, VOMITING, 12/12/21) latex (Unverified Allergy, Mild, RASH, 12/12/21) ondansetron (Unverified Allergy, Mild, Rash at IV site, 12/12/21) iron (Verified Allergy, Unknown, 12/12/21) metoclopramide (Verified Allergy, Unknown, 12/12/21) Patient Home Medication List Home Medication List Reviewed: Yes Albuterol Sulfate (Ventolin Hfa) 1 Puff Puff, 2 PUFF INH Q6H PRN for SHORTNESS OF BREATH, (Reported) Entered as Reported by: MODESTA RUBIN on 01/25/221535 Last Action: Reviewed Cholecalciferol (Vitamin D3) (Vitamin D3) 50 Mcg (2000 Unit) Capsule, 100 MCG PO 1700, (Reported) Entered as Reported by: MODESTA RUBIN on 09/29/19920 Last Action: Reviewed Dicyclomine HCl (Dicyclomine HCl) 10 Mg Capsule, 10 MG PO QID PRN for GI CRAMPING/SPASMS, (Reported) Entered as Reported by: MODESTA RUIBN on 01/25/221535 Last Action: Reviewed Duloxetine HCl (Duloxetine HCl) 30 Mg Capsule.dr, 30 MG PO DAILY, (Reported) Entered as Reported by: GONZÁLEZ LEUNG on 12/12/21 08 Last Action: Reviewed Hydrochlorothiazide (Hydrochlorothiazide) 25 Mg Tablet, 25 MG PO DAILY, (Reported) Entered as Reported by: MODESTA RUBIN on 09/29/19920 Last Action: Reviewed Hydrocodone/Acetaminophen (Hydrocodone-Acetamin 7.5-325) 7.5 Mg-325 Mg Tablet, 2 EACH PO 1700, (Reported) Entered as Reported by: MODESTA RUBIN on 01/25/221535 Last Action: Reviewed L.acidoph & Paracasei,B.lactis (Probiotic) 10 Billion Cell Capsule, 1 EACH PO 1700, (Reported) Entered as Reported by: MODESTA RUBIN on 01/25/221535 Last Action: Reviewed Lorazepam (Ativan) 1 Mg Tablet, 1 MG PO HS, (Reported) Entered as Reported by: MODESTA RUBIN on 01/25/221535 Last Action: Reviewed Metoprolol Succinate (Metoprolol Succinate) 25 Mg Tab.er.24h, 25 MG PO DAILY, (Reported) Entered as Reported by: MODESTA RUBIN on 09/29/19920 Last Action: Reviewed Multivitamin (Multivitamin) 1 Each Tablet, 1 EACH PO 1700, (Reported) Entered as Reported by: MODESTA RUBIN on 09/29/19920 Last Action: Reviewed Potassium Citrate (Potassium Citrate ER) 10 Meq Tablet.er, 10 MEQ PO DAILY, (Reported) Entered as Reported by: MODESTA RUBIN on 09/29/19920 Last Action: Reviewed Promethazine HCl (Promethazine Tablet) 25 Mg Tablet, 25 MG PO Q8H PRN for NAUSE A/VOMITING-2ND LINE, (Reported) Entered as Reported by: MODESTA RUBIN on 01/25/221535 Last Action: Reviewed Semaglutide (Ozempic) 0.25 Mg/0.2 Ml Pen.injctr, 0.5 MG SQ SUN, (Reported) Entered as Reported by: MODESTA RUBIN on 01/25/221535 Last Action: Reviewed Discontinued Medications Albuterol Sulfate (Albuterol Sulfate) 2.5 Mg/0.5 Ml Vial.neb, 2.5 MG INH Q4H PRN for PRN, (Reported) Discontinued Reason: No Longer Taking Entered as Reported by: GONZÁLEZ LEUNG on 12/12/21856 Last Action: Discontinued Albuterol Sulfate (Albuterol Sulfate) 2.5 Mg/0.5 Ml Vial.neb, 2.5 MG INH Q4H, (Reported) Discontinued Reason: No Longer Taking Entered as Reported by: GONZÁLEZ LEUNG on 12/12/21856 Last Action: Discontinued Fluticasone Propion/Salmeterol (Fluticasone-Salmeterol 250-50) 250 Mcg-50 Mcg/Dose Blst.w.dev, 1 EACH IH UD, (Reported) Discontinued Reason: No Longer Taking Entered as Reported by: GONZÁLEZ LEUNG on 12/12/21 0857 Last Action: Discontinued Levalbuterol Tartrate (Levalbuterol Tartrate Hfa) 45 Mcg/Actuation Hfa.aer.ad, 15 GM IH UD, (Reported) Discontinued Reason: No Longer Taking Entered as Reported by: GONZÁLEZ LEUNG on 12/12/21 0857 Last Action: Discontinued Lorazepam (Ativan) 0.5 Mg Tablet, 0.5-1 MG PO TID PRN for ANXIETY Discontinued Reason: Duplicate Order Prescribed by: SUASNA JONES on 11/04/21 0109 Last Action: Discontinued Promethazine HCl (Promethazine Tablet) 25 Mg Tablet, 25 MG PO Q6H PRN for NAUSEA/VOMITING Discontinued Reason: Duplicate Order Prescribed by: SUSANA JONES on 07/21/21 2301 Last Action: Discontinued Semaglutide (Ozempic) Unknown Strength Pen.injctr, 0.5 SQ, (Reported) Discontinued Reason: Duplicate Order Entered as Reported by: GONZÁLEZ LEUNG on 12/12/21 1009 Last Action: Discontinued Past Ftzwqim-Jgzosi-Iiibtb Hx Patient Social History Smoking Status: Never a Smoker 2nd Hand Smoke Exposure: No Recent Hopitalizations: No Immunizations Up To Date Tetanus Booster (TDap): More than 5yrs Date of Influenza Vaccine: Dec 22, 2020 Seasonal Allergies Seasonal Allergies: Yes (INH AND NEB PRN) Surgeries Yes (D&C) Appendectomy, Gallbladder, Orthopedic, Renal, 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 Respiratory Yes Currently Using CPAP: No Currently Using BIPAP: No Cardiovascular No (CLEAN HEART CATHS X2) Coronary Artery Disease, Irregular Heartbeat Neurological No Reproductive System Hx : 4 Hx Para: 4 Hx Reproductive Disorders: Yes Sexually Transmitted Disease: No 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: 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 Genitourinary Yes Kidney Stones Gastrointestinal Yes ( GABI AND APPY) Colitis, Esophagitis, Gall Bladder Disease Musculoskeletal Yes Fractures Endocrine History of Endocrine Disorders: Yes (JUST STARTED OZEMPIC) HEENT History of HEENT Disorders: No (CONTACTS) Cancer No Psychosocial History of Psychiatric Problem: Yes Behavioral Health Disorders: Anxiety Integumentary History of Skin or Integumenta: No Blood Transfusions History of Blood Disorders: Yes (ANEMIA) Adverse Reaction to a Blood Tr: No Family Medical History Other Significan Family Hx: Bicuspid aortic valve in two siblings Family Hx: AORTIC VALVE REPLACEMENT 19 FATHER G8 SISTER FH: congestive heart failure G8 SISTER Exam Vital Signs Vital Signs 01/28/22 07:00 Temp 36.2 Pulse 67 Resp 18 B/P (MAP) 124/71 (88) Pulse Ox 99 O2 Delivery Room Air Capillary Refill : Labs Laboratory Tests Test 01/28/22 07:15 Range/Units White Blood Count 7.5 4.3-11.0 10^3/uL Red Blood Count 4.46 3.80-5.11 10^6/uL Hemoglobin 12.6 11.5-16.0 g/dL Hematocrit 39 35-52 % Mean Corpuscular Volume 86 80-99 fL Mean Corpuscular Hemoglobin 28 25-34 pg Mean Corpuscular Hemoglobin Concent 33 32-36 g/dL Red Cell Distribution Width 13.3 10.0-14.5 % Platelet Count 266 130-400 10^3/uL Mean Platelet Volume 9.7 9.0-12.2 fL Immature Granulocyte % (Auto) 0 % Neutrophils (%) (Auto) 62 42-75 % Lymphocytes (%) (Auto) 28 12-44 % Monocytes (%) (Auto) 7 0-12 % Eosinophils (%) (Auto) 2 0-10 % Basophils (%) (Auto) 1 0-10 % Neutrophils # (Auto) 4.6 1.8-7.8 10^3/uL Lymphocytes # (Auto) 2.1 1.0-4.0 10^3/uL Monocytes # (Auto) 0.5 0.0-1.0 10^3/uL Eosinophils # (Auto) 0.2 0.0-0.3 10^3/uL Basophils # (Auto) 0.0 0.0-0.1 10^3/uL Immature Granulocyte # (Auto) 0.0 0.0-0.1 10^3/uL General Appearance: Alert, Oriented X3 HEENT: Atraumatic Respiratory: Clear to Auscultation Cardiovascular: Regular Rate Abdominal: Soft Psych/Mental Status: Mental Status NL Assessment/Plan Assessment and Plan Diagnosis: 46 yo w/ AUB Chronic blood loss anemia Plan: RATLH/ poss VIRA Admission Diagnosis Admission Status: Other (Outpt Proc) JOSELO LUIS DO Jan 28, 2022 08:20
[2022-01-28] MEDS ORDERED: ONDANSETRON 4 MG/2 ML (SDV) Z0FRAN ONE (08:21)
[2022-01-28] MEDS ORDERED: NEOSTIGMINE (BLOXIVERZ ) 1 MG/1ML 10 ML VIAL ONE (08:21)
[2022-01-28] MEDS ORDERED: MIDAZOLAM 2 MG/2 ML (VERSED) VIAL ONE (08:21)
[2022-01-28] MEDS ORDERED: GLYCOPYRROLATE 0.2 MG/ML (ROBINUL) 2 ML VIAL ONE (08:21)
[2022-01-28] MEDS ORDERED: ROCURONIUM 10 MG/ML 5 ML SYRINGE IV ONE (08:21)
[2022-01-28] MEDS ORDERED: proPOfol 200 MG/20 ML (DIPRIVAN) VIAL IV ONE (08:21)
[2022-01-28] MEDS ORDERED: LIDOCAINE PF 2% 5 ML (XYLOCAINE) VIAL ONE (08:21)
[2022-01-28] MEDS ORDERED: fentaNYL INJ 100 MCG/2 ML AMP ONE (08:21)
--- NOTE | 2022-01-28 08:23 | Discharge Inst-Women's Service ---
Discharge Inst-Women's Serv Depart Medication/Instructions New, Converted or Re-Newed RX: Transmitted to Pharmacy Problems Reviewed?: Yes Consults/Follow Up Additional Follow Up: Yes Orders/Referrals Dr. Bustos in 7-10 days and in 8weeks Activity Activity: Activity as Tolerated Driving Instructions: No Driving for 1 Week NO SMOKING: NO SMOKING Nothing Inside Vagina: No Douching, No [place], No Tampons Diet Discharge Diet: No Restrictions Symptoms to Report to : Bleeding Excessive, Pain Increased, Fever Over 101 Degrees F, Vaginal Bleeding Increase, Questions/Concerns For Any Problems or Questions: Contact Your Physician Skin/Wound Care Infection Signs and Symptoms: Increased Redness, Foul Odor of Wound, Increased Drainage, Skin Itchy or Has a Rash, Increased Swelling, Temperature Above 101 F Operative Area Clean and Dry: Keep Incision Clean/Dry Stitches/Deforest/Dermabond: Dermabond, Care of Stitches Bathing Instructions: JOSELO Osuna DO Jan 28, 2022 08:22
[2022-01-28] MEDS ORDERED: DOCU100C37 PO (08:24)
[2022-01-28] MEDS ORDERED: SIME80TA16 PO (08:24)
[2022-01-28] MEDS ORDERED: IBUP-1773 PO (08:24)
[2022-01-28] MEDS ORDERED: HYDR-34 PO (08:24)
[2022-01-28] MEDS ORDERED: diphenhydrAMINE 50 MG/ML INJ (BENADRYL) ONE (08:45)
[2022-01-28] MEDS ORDERED: FAMOTIDINE 20MG/2ML IV (PEPCID) ONE (08:47)
[2022-01-28] MEDS ORDERED: CLINDAMYCIN 900 MG/50 ML IVPB 50 ML IV ONE (08:47)
[2022-01-28] MEDS ORDERED: CLINDAMYCIN 600 MG/4ML (CLEOCIN) VIAL IV ONE (09:12)
[2022-01-28] MEDS ORDERED: BUPIVACAINE 0.25% 30 ML (SENSORCAINE) VIAL INJ ONE (09:14)
[2022-01-28] MEDS ORDERED: SEVOFLURANE (ULTANE) 15 ML INHAL SOLN ONE (09:57)
[2022-01-28] MEDS ORDERED: PROMETHAZINE INJ 25 MG/ML (PHENERGAN) AMP ONE (10:23)
[2022-01-28] MEDS ORDERED: PROMETHAZINE INJ 25 MG/ML (PHENERGAN) AMP IVP ONE (10:45)
[2022-01-28] MEDS ORDERED: HYDROmorphone 2 MG/ML VIAL (DILAUDID) IV ONE (10:45)
[2022-01-28] MEDS ORDERED: PROCHLORPERAZINE 10 MG/2ML INJ (COMPAZINE) IV PRN (11:30)
[2022-01-28] MEDS: LACTATED RINGERS 1,000 ML IV SCH ×2 (11:41→15:46)
[2022-01-28] MEDS ORDERED: IBUPROFEN 600 MG (MOTRIN) TAB PO SCH (12:00)
--- NOTE | 2022-01-28 14:07 | OPERATIVE REPORT ---
DATE OF SERVICE: 01/28/2022 PREOPERATIVE DIAGNOSES: 1. A 46-year-old female with abnormal uterine bleeding. 2. Menorrhagia. 3. Chronic blood loss anemia. POSTOPERATIVE DIAGNOSES: 1. A 46-year-old female with abnormal uterine bleeding. 2. Menorrhagia. 3. Chronic blood loss anemia. PROCEDURE: Robotic-assisted total laparoscopic hysterectomy. SURGEON: Mikey Luis DO ANESTHESIA: General endotracheal. SALES REPRESENTATIVE EDUCATION COURSES: Isabel Pittman, who was necessary for manipulation and retraction throughout the procedure. ESTIMATED BLOOD LOSS: Minimal. URINE OUTPUT: 250 mL clear at the end of the procedure. FLUIDS: 1800 mL lactated Ringer's solution. FINDINGS: There is grossly normal-appearing external female genitalia, grossly normal-appearing bilateral fallopian tubes, slightly enlarged and hyperemic appearing uterus, grossly normal-appearing upper abdominal anatomy. SPECIMENS SENT: Uterus. INDICATIONS FOR PROCEDURE: This 46-year-old female with a patient who had sought care in my office after having a change in bleeding pattern and having bouts of anemia requiring iron replacement therapy. Upon evaluation of the endometrium, there were no signs of malignancy or hyperplasia. The patient wished to proceed with definitive measure to control this. Risks of the procedure were discussed with the patient in detail including risk of bleeding, infection, damage to surrounding structures including but not limited to bowel, bladder, ureters, possible need for reoperation, postoperative complications that may occur, recovery timeframe, risks of anesthesia and even . After everything was discussed with the patient in detail. Consent was obtained. The patient was taken to the operating room. REPORT IN DETAIL. Once in the operating room, general anesthesia was found to be adequate. She was placed in dorsal lithotomy position, prepped and draped in normal sterile fashion. A timeout was performed. A Gonzalez catheter was placed using sterile technique. A weighted speculum was inserted into the patient's vagina. A 0 Vicryl suture was then placed through the anterior lip of the cervix and used for retraction on the cervix. I then gently sounded uterine cavity, depth was found to be 8 cm. I placed a TONYA uterine manipulator with an 8 cm tip and a 3.5 cm colpotomy ring. The tip is placed into the uterus where the balloon was deployed and the colpotomy ring was advanced around the vaginal fornix, at which point I removed all the other instruments from the patient's vagina, performed change of clothes was obtained. We entered into the abdomen, where subcostally the midclavicular line on the left side. I introduced a Veress needle through the skin until intraperitoneal placement was confirmed using a saline drop test and opening pressure of 4 mmHg was noted. I proceed with CO2 insufflation gas to maximum pressure of 15 mmHg, at which point I infiltrate the infraumbilical area using 0.25% Marcaine to make an 8 mm incision with a knife and direct a blunt laparoscopic da Albertina camera trocar through the incision. Placement was confirmed using da Albertina laparoscope. There was no evidence of damage from the entry site. A brief scan of the upper abdominal anatomy appears to be grossly normal and the Veress needle was removed. At that point, there was no evidence of damage upon entry site either. I then have the patient was placed in steep Trendelenburg where I am going to visualize all my pelvic anatomy as defined in the findings above. I placed 2 lateral trocars. These were both approximately 8 cm lateral to my infraumbilical trocar. Both 8 mm incisions. Once both of these trocars are in place, I bring in the da Albertina robot docked in the appropriate fashion, placed in a SynchroSeal device and the left hand, monopolar carlos on the right hand. I performed the following dissection bilaterally, starting at the uteroovarian ligament. I sealed and transected using the SynchroSeal device. I was then able to grasp the entire broad ligament with one bite sealing and transecting this using the SynchroSeal device down to the level of the lower uterine segment, at which point I the anterior and posterior leaves of the broad ligament. Anterior leaf was taken down the anterior vaginal fornix, posteriorly was taken down to the posterior vaginal fornix. This allowed me to skeletonize the uterine vessels laterally, which I sealed and transected using Citrucel device. I then created a colpotomy at 12 o'clock position using monopolar carlos and take circumferentially around the vaginal fornix amputating the vagina from the cervix. The cervix and uterus were then removed through the vagina without difficulty. I closed the vaginal cuff using 2-0 V-Loc in a running fashion. Once again, there was no active bleeding noted from the dissection planes. I then undocked the da Albertina robot and proceeded with the remainder of the case laparoscopically, copiously irrigated the pelvis with normal saline. Once again, there was no active bleeding noted from the dissection planes. I placed Surgiflo hemostatic agent. Overall, my planes of dissection. The patient was taken out of steep Trendelenburg, I removed the lateral trocars under direct visualization, laparoscope. The infraumbilical trocar was left in place. Release insufflation was introduced and 0.25% Marcaine peritoneal cavity. Postoperative pain management. I then removed this trocar as well. The skin reapproximated using 4-0 Monocryl interrupted subcuticular stitches. Dermabond was applied. Incision bandage was placed over the incision as well. Gonzalez catheter was left in place. The patient tolerated the procedure well and was taken to the recovery area in stable condition. Lap and sponge counts were correct at the end of the procedure. Instrument counts were correct as well, 900 mg of clindamycin and 500 mg of Flagyl were given preoperatively for infection prophylaxis. Job ID: [id number] DocumentID: [id number] Dictated Date: 01/28/2022 09:57:14 Market Reporter Date: 01/28/2022 14:05:00 Dictated By: MIKEY LUIS DO
--- NOTE | 2022-01-28 15:09 | Anesthesia-General Post-Op ---
General Patient Condition Nausea/Vomiting: Present Pain: Controlled Post Op Complications Complications None Follow Up Care/Instructions Patient Instructions None needed. Anesthesia/Patient Condition Patient Condition Patient is doing well but does complain of pain and nausea. Nausea is worse per patient. She states the pain is tolerable, and I told her it was to be expected and she understood. Otherwise stable vital signs. FREDY FOSS DO Jan 28, 2022 15:09
== END 2022-01-28 17:20 | disposition home or self-care (01) ==
LOC: SDC 06:36 → WS 10:53 → SDC 17:20
PROVIDERS: ATTEND Obstetrics & Gynecology
DX: N80.01 Superficial endometriosis of the uterus (principal); D50.9 Iron deficiency anemia, unspecified; E66.01 Morbid (severe) obesity due to excess calories; Z68.33 Body mass index [BMI] 33.0-33.9, adult; I10 Essential (primary) hypertension; E11.9 Type 2 diabetes mellitus without complications; G47.33 Obstructive sleep apnea (adult) (pediatric)
CPT/HCPCS: 36415; 84703; 85025; 86850; 86900; 86901; 87081

== ENCOUNTER 2022-05-20 11:08 | Outpatient (RCR) | payer OTHER ==
[~2022-05-20 11:08] MED LIST changes: +DOCU100C37 PO; +SIME80TA16 PO
== END 2022-05-21 | disposition home or self-care (01) ==
PROVIDERS: ATTEND Internal Medicine
DX: G56.22 Lesion of ulnar nerve, left upper limb (principal)

== ENCOUNTER 2022-05-23 10:07 | Outpatient (RCR) | payer OTHER | END 2022-06-21 | disposition home or self-care (01) | PROVIDERS: ATTEND Internal Medicine | DX: G56.22 Lesion of ulnar nerve, left upper limb (principal) ==

== ENCOUNTER → 2022-06-21 | Outpatient (RCR) | payer OTHER | END | disposition home or self-care (01) | DX: M54.2 Cervicalgia (principal); M25.522 Pain in left elbow ==

== ENCOUNTER → 2022-06-27 | Outpatient (CLI) | payer OTHER ==
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
== END ==
LOC: RAD 13:40
PROVIDERS: ATTEND Family Medicine
DX: M47.22 Other spondylosis with radiculopathy, cervical region (principal); M48.02 Spinal stenosis, cervical region
CPT/HCPCS: 72141

== ENCOUNTER 2022-07-18 13:57 | Outpatient (RCR) | payer OTHER | END 2022-07-21 | disposition home or self-care (01) | DX: M54.2 Cervicalgia (principal); M25.522 Pain in left elbow ==

== ENCOUNTER 2022-08-15 09:52 | Outpatient (RCR) | payer OTHER | END 2022-08-21 | disposition home or self-care (01) | DX: M54.2 Cervicalgia (principal); M25.522 Pain in left elbow ==

== ENCOUNTER 2022-09-09 15:56 | Outpatient (RCR) | payer OTHER | END 2022-09-20 | disposition home or self-care (01) | DX: M54.2 Cervicalgia (principal); M25.522 Pain in left elbow; E11.9 Type 2 diabetes mellitus without complications; J45.909 Unspecified asthma, uncomplicated ==

== ENCOUNTER 2022-10-01 09:38 | Outpatient (RCR) | payer OTHER | END 2022-10-21 | disposition home or self-care (01) | DX: M54.2 Cervicalgia (principal); M25.522 Pain in left elbow ==

== ENCOUNTER → 2022-11-15 | Outpatient (CLI) | payer OTHER ==
[2022-11-15 12:23] LABS: BASOPHILS % (AUTO) 1 % (0-10); EOSINOPHILS # (AUTO) 0.1 10^3/uL (0.0-0.3); EOSINOPHILS % (AUTO) 2 % (0-10); HEMATOCRIT 39 % (35-52); HEMOGLOBIN 12.7 g/dL (11.5-16.0); LYMPHOCYTES # (AUTO) 1.8 10^3/uL (1.0-4.0); LYMPHOCYTES % (AUTO) 33 % (12-44); MEAN CORPUSCULAR HEMOGLOBIN 29 pg (25-34); MEAN CORPUSCULAR HGB CONC 33 g/dL (32-36); MEAN CORPUSCULAR VOLUME 88 fL (80-99); MEAN PLATELET VOLUME 9.9 fL (9.0-12.2); MONOCYTES # (AUTO) 0.4 10^3/uL (0.0-1.0); MONOCYTES % (AUTO) 7 % (0-12); NEUTROPHILS % (AUTO) 56 % (42-75); PLATELET COUNT 254 10^3/uL (130-400); WHITE BLOOD COUNT 5.3 10^3/uL (4.3-11.0)
[2022-11-15 13:04] LABS: FREE T4 (FREE THYROXINE) 1.03 NG/DL (0.70-1.48)
== END ==
LOC: CARD 11:51
PROVIDERS: ATTEND Family Medicine
DX: R53.83 Other fatigue (principal); R06.00 Dyspnea, unspecified
CPT/HCPCS: 36415; 82728; 83540; 83550; 84439; 84443; 84484; 85025; 85379; 86618; 86666; 86668; 86757; 93005

== ENCOUNTER → 2023-01-24 | Outpatient (CLI) | payer OTHER ==
[~2023-01-24] MED LIST changes: +DICY-11 PO; -DICY10CA12 PO
[2023-01-24 18:02] LABS: BASOPHILS % (AUTO) 1 % (0-10); EOSINOPHILS # (AUTO) 0.1 10^3/uL (0.0-0.3); EOSINOPHILS % (AUTO) 2 % (0-10); HEMATOCRIT 45 % (35-52); HEMOGLOBIN 14.7 g/dL (11.5-16.0); LYMPHOCYTES % (AUTO) 24 % (12-44); MEAN CORPUSCULAR HEMOGLOBIN 29 pg (25-34); MEAN CORPUSCULAR HGB CONC 33 g/dL (32-36); MEAN CORPUSCULAR VOLUME 89 fL (80-99); MEAN PLATELET VOLUME 9.9 fL (9.0-12.2); MONOCYTES # (AUTO) 0.6 10^3/uL (0.0-1.0); MONOCYTES % (AUTO) 8 % (0-12); NEUTROPHILS # (AUTO) 5.3 10^3/uL (1.8-7.8); NEUTROPHILS % (AUTO) 66 % (42-75); PLATELET COUNT 289 10^3/uL (130-400)
[2023-01-24 18:18] LABS: ALBUMIN 4.4 GM/DL (3.2-4.5); POTASSIUM 4.4 MMOL/L (3.6-5.0)
[2023-01-24 18:19] LABS: CALCIUM 9.9 MG/DL (8.5-10.1)
[2023-01-24 18:20] LABS: TOTAL PROTEIN 7.7 GM/DL (6.4-8.2)
[2023-01-24 18:22] LABS: BILIRUBIN,TOTAL 0.2 MG/DL (0.1-1.0)
[2023-01-24 18:24] LABS: CREATININE SERUM 0.96 MG/DL (0.60-1.30)
== END ==
LOC: LAB 17:30
PROVIDERS: ATTEND Nurse Practitioner Family
DX: R10.13 Epigastric pain (principal); E16.2 Hypoglycemia, unspecified; R11.0 Nausea
CPT/HCPCS: 36415; 80053; 82150; 83690; 84443; 85025

== ENCOUNTER → 2023-01-28 | Outpatient (CLI) | payer BC, OTHER | LOC: CARD 13:30 | PROVIDERS: ATTEND Internal Medicine Cardiovascular Disease | DX: I10 Essential (primary) hypertension (principal); I25.10 Atherosclerotic heart disease of native coronary artery without angina pectoris | CPT/HCPCS: 93306 ==

== ENCOUNTER → 2023-02-03 | Outpatient (CLI) | payer BC, OTHER ==
[~2023-02-03] MED LIST changes: +HOLD METFORMIN - RECEIVED CONTRAST 20 ML VIAL IV SCH; +IOHEXOL 350 MG/ML 100 ML (OMNIPAQUE 350) VIAL IV ONE; +NS 100 ML (IVPB) BAG IV ONE
--- NOTE | 2023-02-03 16:00 | Diagnostic Imaging Report ---
EXAMINATION: CT abdomen and pelvis with intravenous contrast. TECHNIQUE: Multiple contiguous axial images were obtained through the abdomen and pelvis after the uneventful administration of intravenous contrast. All CT scans use one or more of the following dose optimizing techniques: automated exposure control, MA and/or KvP adjustment based on patient size and exam type or iterative reconstruction. HISTORY: Epigastric abdominal pain. COMPARISON: 10/05/2017 FINDINGS: Lung bases: The lung bases are clear. Solid organs: The liver is normal without focal lesion. The gallbladder is surgically absent. There is no biliary ductal dilation. Pancreas is normal. Spleen is normal. Adrenal glands are normal. The kidneys are normal without hydronephrosis. Bowel: The stomach and small bowel are normal without obstruction. The colon is normal. There are no secondary signs of acute appendicitis. Peritoneum: There is no intraperitoneal free fluid or free air. No suspicious lymphadenopathy. Vasculature: Calcification of the aorta without aneurysm. Musculoskeletal: There are bilateral L5 pars defects. No other suspicious osseous lesion or compression fracture. Pelvis: The uterus is surgically absent. No adnexal mass. The urinary bladder is normal. IMPRESSION: 1. No acute abnormality in the abdomen or pelvis. Dictated by: Dictated on workstation # [id number]
== END ==
LOC: RAD 09:07
PROVIDERS: ATTEND Nurse Practitioner Family
DX: R10.13 Epigastric pain (principal)
CPT/HCPCS: 74177